=== PATIENT | female | born 1955 | race Caucasian/White ===

== ENCOUNTER → 2017-08-02 | Day surgery (SDC) | payer SELFPAY ==
[~2017-08-02] MED LIST: ASPIRIN325 MG PO; FENTANYL CITRATE/PF 100MCG/2 ML INJ ONE; MIDAZOLAM HCL 2 MG/2 ML VIAL ONE; OR PHACO EYE KIT ONE; PREOP PHACO EYE KIT ONE; QVAR INH; SEREVENT DISKU50 MCG INH
== END | disposition home or self-care (01) ==
LOC: OR 12:28
PROVIDERS: ATTEND Ophthalmology
DX: H25.12 Age-related nuclear cataract, left eye (principal); J44.9 Chronic obstructive pulmonary disease, unspecified; I10 Essential (primary) hypertension; K58.9 Irritable bowel syndrome, unspecified; F17.210 Nicotine dependence, cigarettes, uncomplicated; Z79.82 Long term (current) use of aspirin
CPT/HCPCS: 66984; J2250; V2632

== ENCOUNTER → 2017-08-16 | Day surgery (SDC) | payer SELFPAY | END | disposition home or self-care (01) | LOC: OR 10:42 | PROVIDERS: ATTEND Ophthalmology | DX: H25.11 Age-related nuclear cataract, right eye (principal); J44.9 Chronic obstructive pulmonary disease, unspecified; I10 Essential (primary) hypertension; I25.10 Atherosclerotic heart disease of native coronary artery without angina pectoris; K58.9 Irritable bowel syndrome, unspecified; F17.210 Nicotine dependence, cigarettes, uncomplicated | CPT/HCPCS: 66984; J2250; V2632 ==

== ENCOUNTER → 2019-05-30 | Day surgery (SDC) | payer MEDICARE ==
--- NOTE | 2019-05-28 13:29 | Diagnostic Imaging Report ---
EXAMINATION: CHEST 2 VIEWS INDICATION: Pre-operative COMPARISON: None FINDINGS: LINES/TUBES:None LUNGS:The lungs are well-inflated. No focal consolidation or pulmonary edema. Subcentimeter right upper lung calcified granuloma. PLEURA:No pleural effusion or pneumothorax. MEDIASTINUM:The cardiomediastinal silhouette appears normal in size and shape. Atherosclerotic calcifications of the thoracic aorta. BONES/SOFT TISSUES:No acute osseous injury. ABDOMEN:No free air under the diaphragm. IMPRESSION: No focal pneumonia or pulmonary edema. Signed by: Claire Valdez MD on 05/28/2019 1:26 PM
[~2019-05-30] MED LIST changes: +ACETAMINOPHEN 1000 MG/100 ML IV ONE; +ALBUTEROL0.63 MG/3 NEB; +BACITRACIN 50,000 UNIT VIAL ONE; +BUPIVACAINE HCL 0.5% INJ 30 ML VIAL INJ ONE; +CEFAZOLIN SOD 1 GM/NS 50ML 100 ML IV ONE; +COMBIVENT RESPIM4 GM IH; +DEXAMETHASONE SOD PHOS INJ 4 MG/ML VIAL ONE; +GLYCOPYRROLATE INJ 0.2 MG/ML VIAL ONE; +HYDROCODONE/APAP 10MG-325MG TAB ONE; +HYDROMORPHONE 1MG/1ML INJ ONE; +IBUPROFEN600 MG PO; +LIDOCAINE HCL 2% LOCAL INJ 5 ML SDV VIAL INJ ONE; +LISINOPRIL10 MG PO; +LOVASTATIN40 MG PO; +MORPHINE SULFATE INJ 4 MG/ML INJ 1ML ONE; +NEOSTIGMINE 1 MG/ML 10ML VIAL ONE; +NORCO 10-325 T1 EACH PO; +ONDANSETRON HCL INJ 2MG/ML 2ML 2 MG/ML VIAL ONE; -OR PHACO EYE KIT ONE; -PREOP PHACO EYE KIT ONE; +PROPOFOL IV EMULSION 10 MG/ML 20 ML VIAL ONE; +ROCURONIUM BROMIDE 10 MG/ML 5ML VIAL ONE; +SEVOFLURANE INHAL SOLN 250 ML PEN BTL ONE; +SYMBICORT 16010.2 GM INH
--- OUTSIDE RECORDS SUMMARY | 2019-05-30 08:10 | XMS REPORT ---
Author Author [facility] Organization [facility] Address Unknown Phone Unavailable Care Team Providers Care Emergency Room Clinician Name Role Phone DELORES ALVAREZ Unavailable Unavailable Payers Payer Name Policy Type Policy Number Effective Date Expiration Date Problems This patient has no known problems. Allergies, Adverse Reactions, Alerts Allergy Name Allergy Type Status Severity Reaction(s) Onset Date Inactive Date Treating Clinician Comments No Known Allergies DA Active U 2017-10-01 00:00:00 Medications This patient has no known medications. Results Test Description Test Time Test Comments Text Results Atomic Results Result Comments CHEST 2 VIEWS 2019-05-28 13:25:00 [place] [address] Patient Name: RASHAD GRIFFIN MR #: [id number] : 1955 Age/Sex: 64/F Req #: [id number] Adm Physician: Ordered by: DELORES ALVAREZ MD Report #: [id number] Location: OR Room/Bed: Procedure: [id number] DX/CHEST 2 VIEWS Exam Date: 05/28/19 Exam Time: 1300 REPORT STATUS: Signed EXAMINATION: CHEST 2 VIEWS INDICATION: Pre-operative COMPARISON: None FINDINGS: LINES/TUBES:None LUNGS:The lungs are well-inflated. No focal consolidation or pulmonary edema. Subcentimeter right upper lung calcified granuloma. PLEURA:No pleural effusion or pneumothorax. MEDIASTINUM:The cardiomediastinal silhouette appears normal in size and shape. Atherosclerotic calcifications of the thoracic aorta. BONES/SOFT TISSUES:No acute osseous injury. ABDOMEN:No free air under the diaphragm. IMPRESSION: No focal pneumonia or pulmonary edema. Signed by: Guillermo Palafox MD on 05/28/2019 1:26 PM Dictated By: GUILLERMO PALAFOX MD 1326 Transcribed By: RACQUEL on 05/28/19 1326 COPY TO: DELORES ALVAREZ MD - CT UP EXTREM W/O CONT LT 2019-05-15 21:54:00 Name: RASHAD GRIFFIN [facility] : 1955 Age/S: 64 / F [address] [facility] Unit #: [id number] Loc: [place] [address] Phys: Agustin Ponce MD Acct: [id number] Dis Date: Status: REG CLI PHONE #: [phone] Exam Date: 05/15/2019 1505 FAX #: [phone] Reason: OLECRANON FX EXAMS: CPT CODE: [id number] CT UP EXTREM W/[place] [address] EXAM: CT of the left elbow; INFORMATION: Fracture of the left olecranon, demonstrated on plain films series from April 28, 2019. TECHNIQUE AND FINDINGS: CT dose reduction protocol; 2.5 mm axial scans through the left elbow; sagittal and coronal reconstructions. In addition, 3-D reconstructions were obtained on an independent workstation. Corresponding with recent plain film findings there is a slightly displaced fracture of the olecranon. The proximal radius and the distal left humerus are intact. No radiopaque foreign bodies. IMPRESSION: Slightly displaced fracture of the left olecranon. Location code: [facility] at 2154 Reported and signed by: Zachary Matamoros M.D. CC: Agustin Ponce MD; Chin Vora MD Technologist:Mari Montoya RT(R); JAMES Serna CTDI: DLP: Trnscb Date/Time: 05/15/2019 (2153) JocelynGRW Orig Print D/T: S: 05/15/2019 (2156) PAGE 1 Signed Report - CT PELVIS W/O CONTRAST 2019-04-28 15:22:00 Name: RASHAD GRIFFIN [facility] : 1955 Age/S: 63 / F [address] [facility] Unit #: [id number] Loc: [facility] [place] [address] Phys: Marni Crump MD Acct: [id number] Dis Date: Status: REG ER PHONE #: [phone] Exam Date: 04/28/2019 1505 FAX #: [phone] Reason: fall, coccyx pain EXAMS: CPT CODE: [id number] CT PELVIS W/O CONTRAST 62319 EXAM: CT of the pelvis, including sacrum and coccyx; INFORMATION: Status post fall; coccyx pain; TECHNIQUE AND FINDINGS: CT dose reduction protocol; 5 mm scans through the pelvis; sagittal and coronal reconstructions. Sacrum and coccyx as well as the L4 and L5 vertebral bodies and posterior elements are intact; no evidence of fracture. The pelvis is also intact and without evidence of traumatic changes. Both hip joints are intact no fracture or dislocation. Degenerative changes of the lower lumbar spine. Moderate broad-based posterior and posterior lateral disc herniations at L4-S1 resulting in bilateral neural foraminal stenosis. There is a small, saccular aneurysm of the infrarenal aorta, at the level of L4. It has a maximum diameter of 2.5 cm. There are extensive calcifications of the abdominal aorta and iliofemoral arteries. Soft tissue windows show numerous sigmoid diverticula; no evidence of diverticulitis or other acute bowel abnormalities. No pelvic mass lesions IMPRESSION: 1. No evidence of sacral coccygeal fracture or other traumatic changes of the lower lumbar spine, the pelvis of the hip joints. 2. Advanced degenerative disc disease L4/5 and moderate posterior and posterior lateral disc herniations L4-S1. 3. 2.5 cm 5 few follow-up is recommended. 4. Sigmoid diverticulosis without evidence of diverticulitis. Location code: [facility] at 1522 Reported and signed by: Zachary Matamoros M.D. CC: Marni Crump MD Technologist:Olinda Pires RT(R),CT; CTDI: DLP: Trnscb Date/Time: 04/28/2019 (1522) [email or web address] Orig Print D/T: S: 04/28/2019 (1525) PAGE 1 Signed Report - XR FOREARM 2 VIEWS LT 2019-04-28 13:53:00 FAX: Marni Snow [phone] [place]: St: REG Name: RASHAD GRIFFIN [facility] : 1955 Age/S: 63/F [address] [facility] Unit #: [id number] Loc: [place] [address] Phys: Marni Crump MD Acct: [id number] Dis Date: Status: REG ER PHONE #: [phone] Exam Date: 04/28/2019 1340 FAX #: [phone] Reason: fall, arm pain EXAMS: CPT CODE: [id number] XR [address] [address] [place] [address] EXAM: Left elbow, 3 views and left forearm, 2 views; INFORMATION: Elbow pain after fall; FINDINGS: There is a roughly displaced fracture of the olecranon. This is associated with a joint effusion, characterized by positive anterior and posterior fat pad signs. The left radius and the distal left humerus are intact. No radiopaque foreign bodies. IMPRESSION: 1. Displaced fracture of the left olecranon. 2. Associated joint effusion/hemarthrosis. Location code: [facility] at 3168 Reported and signed by: Zachary Matamoros M.D. CC: Marni Crump MD Technologist: Disha Landeros RT(R); NAYANA SEPULVEDA RT(R) Trnscrd Date/Time/By: 04/28/2019 (3727) : By: JocelynGRW Orig Print D/T: S: 04/28/2019 (0238) PAGE 1 Signed Report - XR ELBOW 3 + V LT 2019-04-28 13:53:00 FAX: Marni Snow [phone] [place]: St: REG Name: RASHAD GRIFFIN [facility] : 1955 Age/S: 63/F [address] [facility] Unit #: [id number] Loc: [place] [address] Phys: Marni Crump MD Acct: [id number] Dis Date: Status: REG ER PHONE #: [phone] Exam Date: 04/28/2019 1340 FAX #: [phone] Reason: swelling EXAMS: CPT CODE: [id number] XR ELBOW 3 + [place] [address] EXAM: Left elbow, 3 views and left forearm, 2 views; INFORMATION: Elbow pain after fall; FINDINGS: There is a roughly displaced fracture of the olecranon. This is associated with a joint effusion, characterized by positive anterior and posterior fat pad signs. The left radius and the distal left humerus are intact. No radiopaque foreign bodies. IMPRESSION: 1. Displaced fracture of the left olecranon. 2. Associated joint effusion/hemarthrosis. Location code: [facility] at 1353 Reported and signed by: Zachary Matamoros M.D. CC: Marni Crump MD Technologist: Disha Landeros RT(R); NAYANA SEPULVEDA RT(R) Trnscrd Date/Time/By: 04/28/2019 (7082) : By: Travis Orig Print D/T: S: 04/28/2019 (9689) PAGE 1 Signed Report - CT C-SPINE W/O CONTRAST 2019-04-28 13:28:00 Name: RASHAD GRIFFIN [facility] : 1955 Age/S: 63 / F [address] [facility] Unit #: [id number] Loc: [place] [address] Phys: Marni Crump MD Acct: [id number] Dis Date: Status: REG ER PHONE #: [phone] Exam Date: 04/28/2019 1310 FAX #: [phone] Reason: fall EXAMS: CPT CODE: [id number] CT C-SPINE W/O CONTRAST 98426 EXAM: CT of the cervical spine without contrast; INFORMATION: Neck pain after fall; TECHNIQUE AND FINDINGS: CT dose reduction protocol; 2.5 mm axial scans. There is good alignment of the cervical spine. Vertebral bodies, the dens and posterior elements are intact; no evidence of fracture or dislocation. The significant narrowing of the disc space C5/6, associated with subchondral sclerosis of endplates, small posterior and more prominent anterior and anterior lateral osteophyte formation. There is partial fusion of C2 and 3. The remainder of the cervical discs is unremarkable. Degenerative changes are seen of facet joints C3 C5, right greater than left. Paravertebral soft tissues are unremarkable. IMPRESSION: 1. No evidence of acute osseous trauma. 2. Advanced degenerative disc disease C5/6, associated with moderate spondylosis. 3. Facet joint arthropathy. Location code: [facility] at 1328 Reported and signed by: Zachary Matamoros M.D. CC: Marni Crump MD Technologist:Kym Arceo RT(R)(CT) CTDI: DLP: Trnscb Date/Time: 04/28/2019 (5758) Travis Orig Print D/T: S: 04/28/2019 (2079) PAGE 1 Signed Report - CT HEAD/BRAIN W/O CONT 2019-04-28 13:24:00 Name: RASHAD GRIFFIN [facility] : 1955 Age/S: 63 / F [address] [facility] Unit #: [id number] Loc: [place] [address] Phys: Marni Crump MD Acct: [id number] Dis Date: Status: REG ER PHONE #: [phone] Exam Date: 04/28/2019 1310 FAX #: [phone] Reason: fall EXAMS: CPT CODE: [id number] CT HEAD/BRAIN W/O CONT 76378 EXAM: CT of the head without contrast; INFORMATION: Headache after fall; TECHNIQUE AND FINDINGS: CT dose reduction protocol; 2.5 mm axial scans. There is no evidence of intra or extra-axial hemorrhage, mass lesions or midline shift. Unremarkable [place]/white matter differentiation. Ventricles are symmetric and of normal diameter; sulci and basilar cisterns are intact. There is mucosal swelling in the right sphenoid sinus. The remainder of the sinuses and mastoid air cells are well aerated. IMPRESSION: 1. No evidence of intracranial hemorrhage, acute territorial infarction or other intracranial pathology. 2. Right sphenoid sinusitis. Location code: [facility] at 1324 Reported and signed by: Zachary Matamoros M.D. CC: Marni Crump MD Technologist:Kym Arceo RT(R)(CT) CTDI: DLP: Trnscb Date/Time: 04/28/2019 (1324) Travis Orig Print D/T: S: 04/28/2019 (3764) PAGE 1 Signed Report - XR HAND 2 V LT 2019-04-28 13:20:00 FAX: Marni Snow [phone] [place]: B St: REG Name: RASHAD GRIFFIN [facility] : 1955 Age/S: 63/F [address] [facility] Unit #: [id number] Loc: [place] [address] Phys: Marni Crump MD Acct: [id number] Dis Date: Status: REG ER PHONE #: [phone] Exam Date: 04/28/2019 1300 FAX #: [phone] Reason: fall, hand pain EXAMS: CPT CODE: [id number] XR HAND 2 [place] [address] EXAM: Left wrist, 2 views and left, 2 views; INFORMATION: Pain after fall; FINDINGS: There is diffuse osteoporosis; otherwise, imaged bones are intact; no evidence of fracture or dislocation. Mild changes of the first and second carpal metacarpal joints and of the first metacarpophalangeal joint. No soft tissue abnormality; no radiopaque foreign bodies. IMPRESSION: 1. No evidence of acute osseous trauma. 2. No radiopaque foreign bodies. 3. Osteoporosis. 4. 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 Location code: [facility] at 1320 Reported and signed by: Zachary Matamoros M.D. CC: Marni Crump MD Technologist: Disha Landeros RT(R); NAYANA SEPULVEDA RT(R) Trnscrd Date/Time/By: 04/02 (9946) : By: Travis Orig Print D/T: S: 04/28/2019 (9058) PAGE 1 Signed Report - XR WRIST 2 VIEWS LT 2019-04-28 13:20:00 FAX: Marni Snow [phone] [place]: St: REG Name: RASHAD GRIFFIN [facility] : 1955 Age/S: 63/F [address] [facility] Unit #: [id number] Loc: [place] [address] Phys: Marni Crump MD Acct: [id number] Dis Date: Status: REG ER PHONE #: [phone] Exam Date: 04/28/2019 1300 FAX #: [phone] Reason: fall, swelling to wrist EXAMS: CPT CODE: [id number] XR WRIST [address] [place] [address] EXAM: Left wrist, 2 views and left, 2 views; INFORMATION: Pain after fall; FINDINGS: There is diffuse osteoporosis; otherwise, imaged bones are intact; no evidence of fracture or dislocation. Mild changes of the first and second carpal metacarpal joints and of the first metacarpophalangeal joint. No soft tissue abnormality; no radiopaque foreign bodies. IMPRESSION: 1. No evidence of acute osseous trauma. 2. No radiopaque foreign bodies. 3. Osteoporosis. 4. 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 Location code: [facility] at 1320 Reported and signed by: Zachary Matamoros M.D. CC: Marni Crump MD Technologist: Disha Landeros RT(R); NAYANA SEPULVEDA RT(R) Trnscrd Date/Time/By: 04/02 (0026) : By: Travis Orig Print D/T: S: 04/28/2019 (9446) PAGE 1 Signed Report - XR HUMERUS 2 + V LT 2019-04-28 13:18:00 FAX: Marni Snow [phone] [place]: St: REG Name: RASHAD GRIFFIN [facility] : 1955 Age/S: 63/F [address] [facility] Unit #: [id number] Loc: [place] [address] Phys: Marni Crump MD Acct: [id number] Dis Date: Status: REG ER PHONE #: [phone] Exam Date: 04/28/2019 1300 FAX #: [phone] Reason: fall, pain in arm EXAMS: CPT CODE: [id number] XR HUMERUS 2 + [place] [address] EXAM: Left shoulder, 3 views and left humerus, 3 views; INFORMATION: Trauma; pain after fall; FINDINGS: Normal shape and structure of the imaged bones; no evidence of fracture or dislocation; no soft tissue abnormalities. IMPRESSION: No evidence of acute osseous trauma or other pathological changes. No radiopaque foreign body. Location code: [facility] at 1318 Reported and signed by: Zachary Matamoros M.D. CC: Marni Crump MD Technologist: Disha Landeros RT(R); NAYANA SEPULVEDA RT(R) Trnmird Date/Time/By: 04/28/2019 (1318) : By: JocelynGRW Orig Print D/T: S: 04/28/2019 (9598) PAGE 1 Signed Report - XR SHOULDER 2 + V LT 2019-04-28 13:18:00 FAX: Marni Snow [phone] [place]: B St: REG Name: RASHAD GRIFFIN [facility] : 1955 Age/S: 63/F [address] Unit #: [id number] Loc: [place] [address] Phys: Marni Crump MD Acct: [id number] Dis Date: Status: REG ER PHONE #: [phone] Exam Date: 04/28/2019 1300 FAX #: [phone] Reason: fall, ttp shoulder EXAMS: CPT CODE: [id number] XR SHOULDER 2 + [place] [address] EXAM: Left shoulder, 3 views and left humerus, 3 views; INFORMATION: Trauma; pain after fall; FINDINGS: Normal shape and structure of the imaged bones; no evidence of fracture or dislocation; no soft tissue abnormalities. IMPRESSION: No evidence of acute osseous trauma or other pathological changes. No radiopaque foreign body. Location code: [facility] at 1318 Reported and signed by: Zachary Matamoros M.D. CC: Marni Crump MD Technologist: Disha Landeros RT(R); NAYANA SEPULVEDA RT(R) Trnmird Date/Time/By: 04/28/2019 (0058) : By: [email or web address] Orig Print D/T: S: 04/28/2019 (5024) PAGE 1 Signed Report - XR RIBS UNI W/CXR 3+V LT 2019-04-28 13:17:00 FAX: Marni Snow [phone] [place]: B St: REG Name: RASHAD GRIFFIN [facility] : 1955 Age/S: 63/F [address] Unit #: [id number] Loc: [place], [place] [address] Phys: Marni Crump MD Acct: [id number] Dis Date: Status: REG ER PHONE #: [phone] Exam Date: 04/28/2019 1300 FAX #: [phone] Reason: fall, ttp left posterior ribs EXAMS: CPT CODE: [id number] XR RIBS UNI W/CXR 3+[place] [address] EXAM: Left- sided rib series, 5 views; INFORMATION: Left posterior chest wall pain fall; IMPRESSION: 1. Ribs are intact; no evidence of fracture or other pathological changes. 2. No evidence of pulmonary contusion or pneumothorax. 3. Incidental note is made of a 3 mm calcified granuloma in the right upper lobe and of calcifications of the aortic arch. Location code: [facility] at 1317 Reported and signed by: Zachary Matamoros M.D. CC: Marni Crump MD Technologist: Disha Landeros RT(R); NAYANA SEPULVEDA RT(R) Trnscrd Date/Time/By: 04/28/2019 (9046) : By: JocelynGRW Orig Print D/T: S: 04/28/2019 (9468) PAGE 1 Signed Report BASIC METABOLIC PANEL 2019-04-28 12:53:00 SODIUM (test code=NA) 144 mmol/L 136-145 POTASSIUM (test code=K) 4.2 mmol/L 3.5-5.1 CHLORIDE (test code=CL) 110.0 mmol/L 98-107 CARBON DIOXIDE (test code=CO2) 31.0 mmol/L 21-32 ANION GAP (test code=GAP) 7.2 10-20 GLUCOSE (test code=GLU) 100 mg/dL 74-106 BLOOD UREA NITROGEN (test code=BUN) 13 mg/dL 7-18 GLOMERULAR FILTRATION RATE (test code=GFR) > 60 mL/min >=60 Estimated GFR by using Modified MDRD formula.Chronic kidney disease is defined as either kidney damageor GFR <60 mL/min/1.73 m2 for >3 months. CREATININE (test code=CREAT) 0.70 mg/dL 0.55-1.02 Note change in reference range due to change in reagent. BUN/CREATININE RATIO (test code=BUN/CREA) 18.6 10-20 CALCIUM (test code=CA) 9.4 mg/dL 8.5-10.1 BASIC METABOLIC [id number] 12:51:00* Test Item Value Reference Range Comments SODIUM (test code=NA) 144 mmol/L 136-145 POTASSIUM (test code=K) 4.2 mmol/L 3.5-5.1 CHLORIDE (test code=CL) 110.0 mmol/L 98-107 CARBON DIOXIDE (test code=CO2) mmol/L 21-32 ANION GAP (test code=GAP) 10-20 GLUCOSE (test code=GLU) mg/dL 74-106 BLOOD UREA NITROGEN (test code=BUN) mg/dL 7-18 GLOMERULAR FILTRATION RATE (test code=GFR) mL/min >=60 CREATININE (test code=CREAT) mg/dL 0.55-1.02 BUN/CREATININE RATIO (test code=BUN/CREA) 10-20 CALCIUM (test code=CA) mg/dL 8.5-10.1 PROTHROMBIN [id number] 12:51:00* Test Item Value Reference Range Comments PROTHROMBIN TIME PATIENT (test code=PTP) 10.6 seconds 9.0-14.0 INTERNATIONAL NORMAL RATIO (test code=INR) 0.9 0.8-1.2 The therapeutic range for oral anticoagulant therapy formost indications is an international normalized ratio (INR)of between 2.0 and 3.0. The recommended therapeutic INRrange for various clinical situations is listed below: Clinical Situation INR range Pulmonary e mbolism treatment (2.0-3.0)Venous thrombosis treatmentVenous thrombosis prophylaxis (high risk surgery)Prevention of systemic embolism from: Acute myocardial infarction Valvular heart disease Atrial fibrillation Mechanical prosthetic heart valves (2.5-3.5) IS PATIENT ON ANTICOAGULANTS? NTHROMBOPLASTIN TIME [id number] 12:51:00* Test Item Value Reference Range Comments THROMBOPLASTIN TIME PARTIAL (test code=PTT) 33.1 seconds 25.0-36.5 IS PATIENT ON ANTICOAGULANTS? NCBC W/AUTO [id number] 12:45:00* Test Item Value Reference Range Comments WHITE BLOOD CELL (test code=WBC) 12.0 K/mm3 4.5-12.5 RED BLOOD CELL (test code=RBC) 4.23 mill/mm3 3.7-5.2 HEMOGLOBIN (test code=HGB) 13.2 gram/dL 11.5-15.5 HEMATOCRIT (test code=HCT) 41.1 % 36.0-46.0 MEAN CELL VOLUME (test code=MCV) 97.2 fL 80-98 MEAN CELL HGB (test code=MCH) 31.2 picogram 27.0-33.0 MEAN CELL HGB CONCETRATION (test code=MCHC) 32.1 gram/dL 33.0-36.0 RED CELL DISTRIBUTION WIDTH (test code=RDW) 13.5 % 11.6-16.2 RED CELL DISTRIBUTION WIDTH SD (test code=RDW-SD) 48.4 fL 37.0-51.0 PLATELET COUNT (test code=PLT) 277 K/mm3 150-450 MEAN PLATELET VOLUME (test code=MPV) 9.2 fL 6.7-11.0 NEUTROPHIL % (test code=NT%) 62.9 % 39.0-69.0 IMMATURE GRANULOCYTE % (test code=IG%) 0.4 % 0.0-5.0 LYMPHOCYTE % (test code=LY%) 29.1 % 25.0-55.0 MONOCYTE % (test code=MO%) 6.7 % 0.0-10.0 EOSINOPHIL % (test code=EO%) 0.7 % 0.0-5.0 BASOPHIL % (test code=BA%) 0.2 % 0.0-1.0 NUCLEATED RBC % (test code=NRBC%) 0.0 % 0-0 NEUTROPHIL # (test code=NT#) 7.53 K/mm3 1.8-7.7 IMMATURE GRANULOCYTE # (test code=IG#) 0.05 x10 3/uL 0-0.03 LYMPHOCYTE # (test code=LY#) 3.50 K/mm3 1.0-5.0 MONOCYTE # (test code=MO#) 0.81 K/mm3 0-0.8 EOSINOPHIL # (test code=EO#) 0.09 K/mm3 0.0-0.5 BASOPHIL # (test code=BA#) 0.03 K/mm3 0.0-0.2 NUCLEATED RBC # (test code=NRBC#) 0.00 K/mm3 0.0-0.1 MANUAL DIFF REQUIRED (test code=MDIFF) NO CBC W/AUTO [id number] 12:39:00* Test Item Value Reference Range Comments WHITE BLOOD CELL (test code=WBC) K/mm3 4.5-12.5 RED BLOOD CELL (test code=RBC) mill/mm3 3.7-5.2 HEMOGLOBIN (test code=HGB) 13.2 gram/dL 11.5-15.5 HEMATOCRIT (test code=HCT) 41.1 % 36.0-46.0 MEAN CELL VOLUME (test code=MCV) fL 80-98 MEAN CELL HGB (test code=MCH) picogram 27.0-33.0 MEAN CELL HGB CONCETRATION (test code=MCHC) gram/dL 33.0-36.0 RED CELL DISTRIBUTION WIDTH (test code=RDW) % 11.6-16.2 RED CELL DISTRIBUTION WIDTH SD (test code=RDW-SD) fL 37.0-51.0 PLATELET COUNT (test code=PLT) K/mm3 150-450 MEAN PLATELET VOLUME (test code=MPV) fL 6.7-11.0 NEUTROPHIL % (test code=NT%) % 39.0-69.0 IMMATURE GRANULOCYTE % (test code=IG%) % 0.0-5.0 LYMPHOCYTE % (test code=LY%) % 25.0-55.0 MONOCYTE % (test code=MO%) % 0.0-10.0 EOSINOPHIL % (test code=EO%) % 0.0-5.0 BASOPHIL % (test code=BA%) % 0.0-1.0 NEUTROPHIL # (test code=NT#) K/mm3 1.8-7.7 LYMPHOCYTE # (test code=LY#) K/mm3 1.0-5.0 MONOCYTE # (test code=MO#) K/mm3 0-0.8 EOSINOPHIL # (test code=EO#) K/mm3 0.0-0.5 BASOPHIL # (test code=BA#) K/mm3 0.0-0.2 AG STREPTOCOCCUS [id number] 03:09:00* Test Item Value Reference Range Comments AG STREPTOCOCCUS PNEUMO (test code=STREPPNAG) NEGATIVE NEGATIVE LEGIONELLA ANTIGEN,URINE,[id number] 03:09:00* Test Item Value Reference Range Comments LEGIONELLA ANTIGEN,URINE,SHANE (test code=LEGAGUR) NEGATIVE NEGATIVE [id number] 00:15:00* Test Item Value Reference Range Comments TROPONIN-I (test code=TROPI) <0.015 ng/mL 0-0.045 [id number] 20:51:00* Test Item Value Reference Range Comments TROPONIN-I (test code=TROPI) <0.015 ng/mL 0-0.045 B-TYPE NATRIURETIC [id number] 12:44:00* Test Item Value Reference Range Comments B-TYPE NATRIURETIC PEPTIDE (test code=BNP) 35.56 pgram/mL 0-100 - XR CHEST 1 [id number] 12:40:00 FAX: Fernie Mishra DO [place]: B St: REG Name: Rc LARARASHAD LOPEZ CONY [facility] : [birth year] Age/S: 63/F [address] [facility] Unit #: [id number] Loc: [place] [address] Phys: Fernie Mishra DO Acct: [id number] Dis Date: Status: REG ER PHONE #: [phone] Exam Date: 12/14/2018 1157 FAX #: [phone] Reason: CODE SEPSIS EXAMS: CPT CODE: [id number] XR CHEST 1 V 56092 REASON FOR EXAM: CODE SEPSIS Exam Order Date: 12/14/2018 11:08 AM Ordering M.DPatrick: Fernie Mishra DO PROCEDURE: - XR CHEST 1 V COMPAR LATASHA: Frontal chest radiograph April 18, 2019 FINDINGS: The lungs are clear other than a calcified granuloma in the right lung ap ex. There is no pleural effusion or pneumothorax. Pulmonary vascularity is within normal limits. Cardiomediastinal silhouette is normal in s ize for technique. The mediastinal contours are within normal limits. Degenerative changes are present in the acromioclavicular joints. No acute bony findings however. The visualized upper abdomen is within normal limits. IMPRESSION: No acute cardiopulmona ry process. Prior granulomatous disease. at 1240 Reported and signed by: Alexi Stevens MD CC: Fernie Mishra DO Technologist: Enrique ALEX(Jay) Trnscrd Date/Time/By: 12/14/2018 (8477) : By: [email or web address] Orig Print D/T: S: 12/14/2018 (4944) PAGE 1 Signed Report URINALYSIS COMPLETE 2018-12-14 12:25:00* Test Item Value Reference Range Comments UA COLOR (test code=COLU) Light-Yellow YELLOW UA APPEARANCE (test code=APPU) CLEAR CLEAR UA GLUCOSE DIPSTICK (test code=DGLUU) NEGATIVE mg/dL NEGATIVE UA BILIRUBIN DIPSTICK (test code=BILU) NEGATIVE mg/dL NEGATIVE UA KETONE DIPSTICK (test code=KETU) NEGATIVE mg/dL NEGATIVE UA SPECIFIC GRAVITY (test code=SGU) 1.006 1.001-1.035 UA BLOOD DIPSTICK (test code=NEGRO) Negative mg/dL NEGATIVE UA PH DIPSTICK (test code=ROGER) 7.0 5.0-8.0 UA PROTEIN DIPSTICK (test code=PROU) NEGATIVE mg/dL NEGATIVE UA UROBILINIOGEN DIPSTICK (test code=URO) Normal mg/dL NEGATIVE UA NITRITE DIPSTICK (test code=KERRY) NEGATIVE NEGATIVE UA LEUKOCYTE ESTERASE W REFLEX (test code=LEUUR) 75 Mark/uL (1+) Mark/uL NEGATIVE UA WBC (test code=WBCU) 11-20 per HPF 0-5 UA RBC (test code=RBCU) 0-2 #/HPF 0-5 UA EPITHELIAL CELLS (test code=EPIU) FEW per HPF FEW UA BACTERIA (test code=BACU) FEW #/HPF NONE UA MUCUS (test code=MUCU) FEW #/LPF FEW Urine Source? Clean CatchCBC W/AUTO [id number] 12:15:00* Test Item Value Reference Range Comments WHITE BLOOD CELL (test code=WBC) 7.8 K/mm3 4.5-12.5 RED BLOOD CELL (test code=RBC) 4.36 mill/mm3 3.7-5.2 HEMOGLOBIN (test code=HGB) 14.0 gram/dL 11.5-15.5 HEMATOCRIT (test code=HCT) 42.1 % 36.0-46.0 MEAN CELL VOLUME (test code=MCV) 96.6 fL 80-98 MEAN CELL HGB (test code=MCH) 32.1 picogram 27.0-33.0 MEAN CELL HGB CONCETRATION (test code=MCHC) 33.3 gram/dL 33.0-36.0 RED CELL DISTRIBUTION WIDTH (test code=RDW) 13.0 % 11.6-16.2 RED CELL DISTRIBUTION WIDTH SD (test code=RDW-SD) 46.5 fL 37.0-51.0 PLATELET COUNT (test code=PLT) 292 K/mm3 150-450 MEAN PLATELET VOLUME (test code=MPV) 9.2 fL 6.7-11.0 NEUTROPHIL % (test code=NT%) 48.1 % 39.0-69.0 IMMATURE GRANULOCYTE % (test code=IG%) 0.4 % 0.0-5.0 LYMPHOCYTE % (test code=LY%) 42.0 % 25.0-55.0 MONOCYTE % (test code=MO%) 7.2 % 0.0-10.0 EOSINOPHIL % (test code=EO%) 1.8 % 0.0-5.0 BASOPHIL % (test code=BA%) 0.5 % 0.0-1.0 NUCLEATED RBC % (test code=NRBC%) 0.0 % 0-0 NEUTROPHIL # (test code=NT#) 3.74 K/mm3 1.8-7.7 IMMATURE GRANULOCYTE # (test code=IG#) 0.03 x10 3/uL 0-0.03 LYMPHOCYTE # (test code=LY#) 3.26 K/mm3 1.0-5.0 MONOCYTE # (test code=MO#) 0.56 K/mm3 0-0.8 EOSINOPHIL # (test code=EO#) 0.14 K/mm3 0.0-0.5 BASOPHIL # (test code=BA#) 0.04 K/mm3 0.0-0.2 NUCLEATED RBC # (test code=NRBC#) 0.00 K/mm3 0.0-0.1 MANUAL DIFF REQUIRED (test code=MDIFF) NO BASIC METABOLIC [id number] 12:13:00* Test Item Value Reference Range Comments SODIUM (test code=NA) 140 mmol/L 136-145 POTASSIUM (test code=K) 4.7 mmol/L 3.5-5.1 CHLORIDE (test code=CL) 105.0 mmol/L 98-107 CARBON DIOXIDE (test code=CO2) 27.0 mmol/L 21-32 ANION GAP (test code=GAP) 12.7 10-20 GLUCOSE (test code=GLU) 93 mg/dL 74-106 BLOOD UREA NITROGEN (test code=BUN) 7 mg/dL 7-18 GLOMERULAR FILTRATION RATE (test code=GFR) > 60 mL/min >=60 Estimated GFR by using Modified MDRD formula.Chronic kidney disease is defined as either kidney damageor GFR <60 mL/min/1.73 m2 for >3 months. CREATININE (test code=CREAT) 0.70 mg/dL 0.55-1.02 Note change in reference range due to change in reagent. BUN/CREATININE RATIO (test code=BUN/CREA) 9.5 10-20 CALCIUM (test code=CA) 9.4 mg/dL 8.5-10.1 HEPATIC FUNCTION [id number] 12:13:00* Test Item Value Reference Range Comments TOTAL PROTEIN (test code=PROT) 7.6 gram/dL 6.4-8.2 ALBUMIN (test code=ALB) 4.0 g/dL 3.4-5.0 GLOBULIN (test code=GLOB) 3.6 gram/dL 2.7-4.2 ALBUMIN/GLOBULIN RATIO (test code=A/G) 1.1 0.75-1.50 BILIRUBIN TOTAL (test code=BILT) 0.50 mg/dL 0.0-1.0 BILIRUBIN DIRECT (test code=BILD) < 0.05 mg/dL 0.0-0.20 SGOT/AST (test code=AST) 21 IUnit/L 15-37 SGPT/ALT (test code=ALT) 15 IUnit/L 12-78 ALKALINE PHOSPHATASE TOTAL (test code=ALKP) 77 IUnit/L 45-117 Note change in reference range due to change in reagent. [id number] 12:13:00* Test Item Value Reference Range Comments TROPONIN-I (test code=TROPI) <0.015 ng/mL 0-0.045 LACTIC [id number] 12:12:00* Test Item Value Reference Range Comments LACTIC ACID (test code=LACT) 1.6 mmol/L 0.4-1.9 CBC W/AUTO [id number] 12:07:00* Test Item Value Reference Range Comments WHITE BLOOD CELL (test code=WBC) K/mm3 4.5-12.5 RED BLOOD CELL (test code=RBC) mill/mm3 3.7-5.2 HEMOGLOBIN (test code=HGB) 14.0 gram/dL 11.5-15.5 HEMATOCRIT (test code=HCT) 42.1 % 36.0-46.0 MEAN CELL VOLUME (test code=MCV) fL 80-98 MEAN CELL HGB (test code=MCH) picogram 27.0-33.0 MEAN CELL HGB CONCETRATION (test code=MCHC) gram/dL 33.0-36.0 RED CELL DISTRIBUTION WIDTH (test code=RDW) % 11.6-16.2 RED CELL DISTRIBUTION WIDTH SD (test code=RDW-SD) fL 37.0-51.0 PLATELET COUNT (test code=PLT) K/mm3 150-450 MEAN PLATELET VOLUME (test code=MPV) fL 6.7-11.0 NEUTROPHIL % (test code=NT%) % 39.0-69.0 IMMATURE GRANULOCYTE % (test code=IG%) % 0.0-5.0 LYMPHOCYTE % (test code=LY%) % 25.0-55.0 MONOCYTE % (test code=MO%) % 0.0-10.0 EOSINOPHIL % (test code=EO%) % 0.0-5.0 BASOPHIL % (test code=BA%) % 0.0-1.0 NEUTROPHIL # (test code=NT#) K/mm3 1.8-7.7 LYMPHOCYTE # (test code=LY#) K/mm3 1.0-5.0 MONOCYTE # (test code=MO#) K/mm3 0-0.8 EOSINOPHIL # (test code=EO#) K/mm3 0.0-0.5 BASOPHIL # (test code=BA#) K/mm3 0.0-0.2 BASIC METABOLIC [id number] 12:01:00* Test Item Value Reference Range Comments SODIUM (test code=NA) 140 mmol/L 136-145 POTASSIUM (test code=K) 4.7 mmol/L 3.5-5.1 CHLORIDE (test code=CL) 105.0 mmol/L 98-107 CARBON DIOXIDE (test code=CO2) mmol/L 21-32 ANION GAP (test code=GAP) 10-20 GLUCOSE (test code=GLU) mg/dL 74-106 BLOOD UREA NITROGEN (test code=BUN) mg/dL 7-18 GLOMERULAR FILTRATION RATE (test code=GFR) mL/min >=60 CREATININE (test code=CREAT) mg/dL 0.55-1.02 BUN/CREATININE RATIO (test code=BUN/CREA) 10-20 CALCIUM (test code=CA) mg/dL 8.5-10.1 HEPATIC FUNCTION [id number] 12:01:00* Test Item Value Reference Range Comments TOTAL PROTEIN (test code=PROT) gram/dL 6.4-8.2 ALBUMIN (test code=ALB) g/dL 3.4-5.0 GLOBULIN (test code=GLOB) gram/dL 2.7-4.2 ALBUMIN/GLOBULIN RATIO (test code=A/G) 0.75-1.50 BILIRUBIN TOTAL (test code=BILT) mg/dL 0.0-1.0 BILIRUBIN DIRECT (test code=BILD) mg/dL 0.0-0.20 SGOT/AST (test code=AST) IUnit/L 15-37 SGPT/ALT (test code=ALT) IUnit/L 12-78 ALKALINE PHOSPHATASE TOTAL (test code=ALKP) IUnit/L 45-117 [id number] 12:01:00* Test Item Value Reference Range Comments TROPONIN-I (test code=TROPI) ng/mL 0-0.045 POC LACTIC [id number] 11:27:00* Test Item Value Reference Range Comments POC LACTIC ACID (test code=POCLAC) 1.78 MMOL/L 0.4-2.2 - XR FOOT 3 + V [id number] 18:07:00 Name: RSAHAD GRIFFIN [facility] : 1955 Age/S:63 /F [address] [facility] Unit#:[id number] Loc: [place] [address] Phys: Nimesh Banegas Dis Date: PHONE #: [phone] Status: REG ER FAX #: [phone] Exam Date: 09/02/2018 Reason: 1ST METATARSAL PAIN S/P FALL EXAMS: CPT CODE: [id number] XR FOOT 3 + V LT [id number] CLINICAL HISTORY: 1ST METATARSAL PAIN S/P FALL TECHNIQUE: AP, oblique, and lateral views of the left foot COMPARISON: 09/04/15 FINDINGS: No acute fracture or dislocation. Bony trabecular pattern is unremarkable. No cortical destruction or periosteal reaction. Mild degenerative changes of the talonavicular, 1st metatarsophalangeal, and polyarticular interphalangeal joints. Regional soft tissues are unremarkable. IMPRESSION: No acute fracture or dislocation. Mild polyarticu lar degenerative arthrosis. at 1807 Reported and signed by: Hien Pierce.OPatrick CC: Nimesh Banegas Technologist: Nimco Grace Trnscrpt Data: 09/02/2018 (1806) [id number] Orig Print D/T: S: 09/02/2018 (1810) PAGE 1 Signed Report
[2019-05-30 14:55] VITALS: BP 141/69
--- NOTE | 2019-05-31 23:46 | Operative Report ---
DATE OF PROCEDURE: 05/30/2019 SURGEON: Elpidio Burgos MD PREOPERATIVE DIAGNOSIS: Subacute displaced, left olecranon fracture. POSTOPERATIVE DIAGNOSIS: Subacute displaced, left olecranon fracture. OPERATIONS AND PROCEDURES PERFORMED: 1. The patient underwent open reduction and internal fixation of the left subacute olecranon fracture. 2. Allograft bone grafting of the subacute left olecranon fracture. CAN STRIPER: LINDA Sheppard. ANESTHESIA: General endotracheal intubation anesthesia. IV FLUIDS: Per anesthesia record. ESTIMATED BLOOD LOSS: Minimal. COMPLICATIONS: None. BRIEF DESCRIPTION OF THE PATIENT'S OPERATIVE PROCEDURE: Ms. Kenney was taken to the operating room, placed in supine position on the operating table. Following induction of general anesthesia as well as endotracheal intubation, the patient was turned onto her right side. She was held in place with a well-padded pang bag positioner. An axillary roll was placed in the right chest wall. Examination of the left upper extremity demonstrated a bruise and ecchymosis about the left elbow joint. Fluoroscopic evaluation of the elbow joint demonstrated displaced intra-articular olecranon fracture. The patient's left upper extremity was prepped and draped in standard surgical fashion. The case was begun by creating a curvilinear incision around the olecranon process extending into the proximal forearm. This incision was carried through skin only. Blunt dissection used to deepen the incision to the level of the patient's fracture site. There was significant scarring and callus formation at the level of the fracture site, given the delay in getting to surgery. Careful dissection about the fracture site to allow for freeing of the soft tissues about the fracture site. A curette was then used to remove the callus formation and to debride the bone, removing scar tissue that would otherwise prevent healing. The wound was copiously irrigated. The fracture was then reduced and held in place with a fracture reduction clamp. A plate was contoured to the proximal ulna and the plate was then affixed to the ulna with combinations of cortical and locking screws. Care was taken to provide compression across the patient's fracture site during the application of the plate. This resulted in anatomic realignment of the patient's articular surface and reduction of the patient's fracture site. The wound was again copiously irrigated. The fracture site was bone grafted with allograft bone graft and Imperial putty. The soft tissues were then closed in a multilayer fashion. Sterile dressings were applied as well as a well-padded posterior splint. The patient was then awakened and taken to the postanesthesia care in stable condition. MD DALILA Pierre/KIMBERLY /[id number]
== END | disposition home or self-care (01) ==
LOC: OR 08:08
PROVIDERS: ATTEND Specialist
DX: S52.032A Displaced fracture of olecranon process with intraarticular extension of left ulna, initial encounter for closed fracture (principal); J44.9 Chronic obstructive pulmonary disease, unspecified; I10 Essential (primary) hypertension; I25.118 Atherosclerotic heart disease of native coronary artery with other forms of angina pectoris; K58.9 Irritable bowel syndrome, unspecified; M19.90 Unspecified osteoarthritis, unspecified site; F17.210 Nicotine dependence, cigarettes, uncomplicated; W19.XXXA Unspecified fall, initial encounter; Z01.818 Encounter for other preprocedural examination
CPT/HCPCS: 20999; 24685; 71046; C1713 ×12; J0131; J0690; J1100; J1170; J2001; J2250; J2270; J2405; J2704; J2710; J3010

== ENCOUNTER → 2019-08-28 | Outpatient (CLI) | payer MEDICARE, OTHER ==
[~2019-08-28] MED LIST changes: -ACETAMINOPHEN 1000 MG/100 ML IV ONE; -BACITRACIN 50,000 UNIT VIAL ONE; -BUPIVACAINE HCL 0.5% INJ 30 ML VIAL INJ ONE; -CEFAZOLIN SOD 1 GM/NS 50ML 100 ML IV ONE; -DEXAMETHASONE SOD PHOS INJ 4 MG/ML VIAL ONE; -FENTANYL CITRATE/PF 100MCG/2 ML INJ ONE; -GLYCOPYRROLATE INJ 0.2 MG/ML VIAL ONE; -HYDROCODONE/APAP 10MG-325MG TAB ONE; -HYDROMORPHONE 1MG/1ML INJ ONE; -LIDOCAINE HCL 2% LOCAL INJ 5 ML SDV VIAL INJ ONE; -MIDAZOLAM HCL 2 MG/2 ML VIAL ONE; -MORPHINE SULFATE INJ 4 MG/ML INJ 1ML ONE; -NEOSTIGMINE 1 MG/ML 10ML VIAL ONE; -ONDANSETRON HCL INJ 2MG/ML 2ML 2 MG/ML VIAL ONE; -PROPOFOL IV EMULSION 10 MG/ML 20 ML VIAL ONE; -ROCURONIUM BROMIDE 10 MG/ML 5ML VIAL ONE; -SEVOFLURANE INHAL SOLN 250 ML PEN BTL ONE
--- NOTE | 2019-08-28 13:23 | Diagnostic Imaging Report ---
MRI of the left shoulder without contrast. History: Shoulder pain. Rotator cuff tear. Fall. Decreased range of motion. Pain not responding to conservative management Comparison: None Technique: Coronal PD FS, sagital PD FS, and axial PD and PD FS. Findings: Rotator cuff: Rotator cuff tendinosis with mild articular sided fraying involving the anterior fibers of the supraspinatus tendon at the humeral insertion site best seen on sagittal series 4 image 10 through 12 additionally, there is infraspinatus and subscapularis tendinosis. The teres minor tendon is intact. Osseous acromion complex: Type II acromion with mild lateral downsloping. Moderate degenerative arthrosis at the acromioclavicular joint with undersurface spurring and narrowing of the supraspinatus tendon outlet. Moderate subacromial/subdeltoid bursitis best seen on coronal series 4 image 10. Glenohumeral joint: Mild degeneration and fraying of the labrum. The articular cartilage surfaces are intact. The humeral head is well-seated in the glenoid fossa. Biceps tendon: The biceps tendon is intact. Other findings: Negative for muscle denervation or osseous fracture. Impression: Rotator cuff tendinosis with mild articular sided fraying involving the anterior fibers of the supraspinatus tendon at the humeral insertion site. Moderate degenerative arthrosis at the acromioclavicular joint with undersurface spurring and narrowing of the supraspinatus tendon outlet. Moderate subacromial/subdeltoid bursitis Signed by: Dr. Nic Leyva M.D. on 08/28/2019 1:20 PM
== END ==
LOC: MRI 10:29
PROVIDERS: ATTEND Specialist
DX: M75.122 Complete rotator cuff tear or rupture of left shoulder, not specified as traumatic (principal)

== ENCOUNTER → 2019-10-23 | Day surgery (SDC) | payer MEDICARE, OTHER ==
[2019-10-19 12:55] LABS: BASOPHILS % 0.3 % (0.0-1.0); EOSINOPHILS # (AUTO) 0.1 (0.0-0.4); EOSINOPHILS % 0.8 % (0.0-6.0); HEMATOCRIT 42.5 % (34.2-44.1); HEMOGLOBIN 13.6 g/dL (12.0-16.0); LYMPHOCYTES # (AUTO) 3.1 (1.0-3.2); LYMPHOCYTES % 27.5 % (18.0-39.1); MEAN CORPUSCULAR HEMOGLOBIN 31.6 pg (28-32); MEAN CORPUSCULAR VOLUME 98.8 fL (81-99); MONOCYTES # (AUTO) 0.7 (0.2-0.8); MONOCYTES % 6.3 % (4.4-11.3); NEUTROPHILS # (AUTO) 7.2 (2.1-6.9); NEUTROPHILS % 64.6 % (38.7-80.0); PLATELET COUNT 285 x10e3/uL (140-360)
[~2019-10-23] MED LIST changes: +ASPIR 8181 MG PO; +FENTANYL CITRATE/PF 100MCG/2 ML INJ ONE; +GABAPENTIN300 MG PO; +GLUCAGON FOR INJ 1 MG VIAL ONE; +HYOSCYAMINE 0.125 MG TAB ONE; +LIDOCAINE HCL 2% LOCAL INJ 5 ML SDV VIAL INJ ONE; +MEPERIDINE HCL INJ 25 MG/ML VIAL ONE; +MIDAZOLAM HCL 2 MG/2 ML VIAL ONE; +PROPOFOL IV EMULSION 10 MG/ML 20 ML VIAL ONE; +[UNRECOGNIZED DRUG - OTHER] PO
[2019-10-23 13:50] VITALS: BP 125/56
--- NOTE | 2019-10-23 14:27 | Operative Report ---
DATE OF PROCEDURE: 10/23/2019 SURGEON: Hakeem Vora MD PROCEDURES: EGD with biopsies and colonoscopy with polypectomy. INDICATIONS FOR EGD: Upper abdominal pain, heartburn, bloating. INDICATIONS FOR COLONOSCOPY: Colorectal cancer screening. MEDICATIONS: The patient was done under MAC, please see anesthesiologist's note. PROCEDURE IN DETAIL: With the patient in the left lateral decubitus position, a flexible fiberoptic Olympus gastroscope was introduced into the esophagus under direct visualization without any difficulty. There was some patchy erythema noted in distal esophagus. GE junction was somewhat nodular and that was biopsied. The scope was then advanced with ease into the stomach traversing a small sliding hiatal hernia. Mucosa overlying the antrum and the body revealed some patchy erythema and low-grade edema, and biopsies were obtained and sent to stain for H. pylori. Pylorus was of normal contour and shape, was intubated with ease and the scope was advanced all the way to the second portion of the duodenum. Biopsies were obtained from the proximal second portion and duodenal bulb to rule out sprue. The scope was then withdrawn back into the stomach and retroflexed, mucosa overlying the fundus and the cardia appeared to be within normal limits. The scope was then straightened out, it was subsequently withdrawn, and the patient tolerated the procedure well. IMPRESSION: 1. Distal esophagitis. 2. Nodular GE junction, biopsied. 3. Small sliding hiatal hernia. 4. Gastritis, biopsied, biopsies sent to stain for Helicobacter pylori. 5. Rule out sprue. PLAN: Follow up histology. Initiate Protonix 40 mg one p.o. q.a.m. before meals. The patient was then turned around and after adequate lubrication of the anal canal, a flexible fiberoptic Olympus colonoscope was inserted into the rectum with ease and advanced all the way to the cecum. An approximately 1.2 cm sessile polypoid lesion was noted in the cecum that was removed per hot snare polypectomy and site was hemoclipped x3. A small approximately 5 mm polyp also in the cecum was removed per cold snare polypectomy. The scope was then withdrawn slowly, mucosa overlying the ascending colon appeared to be within normal limits. Two polyps approximately 1.5 cm each in size, sessile, proximal transverse colon, removed per cold snare polypectomy. An additional approximately 2.5 cm sessile polypoid lesion was partially resected per piecemeal polypectomy, hemoclipped x2 and was tattooed that was in the distal transverse colon. In the descending colon, an approximately 1.5 cm sessile polypoid lesion was removed per hot snare polypectomy and site was hemoclipped x2 and additional approximately 5 mm polyp was removed per hot snare polypectomy. Three polyps were hot snared from the sigmoid colon. Diverticular disease was noted to involve the sigmoid colon. One polyp was hot snared from the rectum. The scope was then retroflexed into the distal rectum and the area around the dentate line appeared to be within normal limits. The scope was then straightened out, it was subsequently withdrawn, and the patient tolerated the procedure well. IMPRESSION: 1. Cecal polyps x2, one approximately 1.5 cm in size, sessile, removed per hot snare polypectomy and site was hemoclipped x2, and additional polyp approximately 5 mm in size was removed per cold snare polypectomy. 2. Proximal transverse colon polyps x2, approximately 1.5 cm in size, removed per hot snare polypectomy. 3. Approximately 2.5 cm sessile polypoid lesion, distal transverse colon, partially resected per hot snare polypectomy, hemoclipped x2 and it was tattooed. 4. Descending colon polyps x2, one approximately 1.5 cm sessile, hot snared, hemoclipped x2. The additional polyp was approximately 6 mm in size that was hot snared. 5. Diverticulosis. 6. Sigmoid colon polyps x3, hot snared. 7. Rectal polyp x1, hot snared. PLAN: A total of 11 polyps were removed. Some of them were pretty large. The patient will need a followup colonoscopy in 3 to 4 months to evaluate colon and remove residual polypoid lesion in the previously described large transverse colon. Hakeem Vora MD [facility] [place]/MODL /[id number] cc: Ezequiel Vora MD
== END | disposition home or self-care (01) ==
LOC: OR 10:40
PROVIDERS: ATTEND Internal Medicine Gastroenterology
DX: Z12.11 Encounter for screening for malignant neoplasm of colon (principal); D12.5 Benign neoplasm of sigmoid colon; D12.0 Benign neoplasm of cecum; D12.3 Benign neoplasm of transverse colon; D12.4 Benign neoplasm of descending colon; K62.1 Rectal polyp; K29.70 Gastritis, unspecified, without bleeding; K44.9 Diaphragmatic hernia without obstruction or gangrene; K31.89 Other diseases of stomach and duodenum; K21.9 Gastro-esophageal reflux disease without esophagitis; K20.9 Esophagitis, unspecified; K58.9 Irritable bowel syndrome, unspecified; K57.30 Diverticulosis of large intestine without perforation or abscess without bleeding; J44.9 Chronic obstructive pulmonary disease, unspecified; I11.0 Hypertensive heart disease with heart failure; I50.9 Heart failure, unspecified; I25.10 Atherosclerotic heart disease of native coronary artery without angina pectoris; F17.210 Nicotine dependence, cigarettes, uncomplicated; Z01.810 Encounter for preprocedural cardiovascular examination; Z01.812 Encounter for preprocedural laboratory examination; Z11.59 Encounter for screening for other viral diseases; Z79.82 Long term (current) use of aspirin; Z80.0 Family history of malignant neoplasm of digestive organs
CPT/HCPCS: 36415; 43239; 45381; 45385; 85025; 87635; 93005; J1610; J2001; J2175; J2250; J2704; J3010; 45378; 45384

== ENCOUNTER → 2020-01-24 | Day surgery (SDC) | payer MEDICARE, OTHER ==
[2020-01-21 12:33] LABS: BASOPHILS % 0.3 % (0.0-1.0); EOSINOPHILS # (AUTO) 0.1 (0.0-0.4); EOSINOPHILS % 0.6 % (0.0-6.0); HEMATOCRIT 38.8 % (34.2-44.1); HEMOGLOBIN 12.5 g/dL (12.0-16.0); LYMPHOCYTES # (AUTO) 3.3 (1.0-3.2); LYMPHOCYTES % 34.5 % (18.0-39.1); MEAN CORPUSCULAR HEMOGLOBIN 31.3 pg (28-32); MEAN CORPUSCULAR HGB CONC 32.2 g/dL (31-35); MEAN CORPUSCULAR VOLUME 97.2 fL (81-99); MONOCYTES # (AUTO) 0.8 (0.2-0.8); MONOCYTES % 8.9 % (4.4-11.3); NEUTROPHILS # (AUTO) 5.3 (2.1-6.9); NEUTROPHILS % 55.4 % (38.7-80.0); PLATELET COUNT 260 x10e3/uL (140-360); RED BLOOD COUNT 3.99 x10e6/uL (3.6-5.1); RED CELL DISTRIBUTION WIDTH 13.3 % (11.7-14.4)
[~2020-01-24] MED LIST changes: +ALBUTEROL SULF 0.083% NEB SOLN 3 ML NEB ONE; +CRESTOR10 MG PO; -FENTANYL CITRATE/PF 100MCG/2 ML INJ ONE; -MEPERIDINE HCL INJ 25 MG/ML VIAL ONE; +PANTOPRAZOLE SO40 MG PO
[2020-01-24 15:10] VITALS: BP 145/69
--- NOTE | 2020-01-24 15:12 | Operative Report ---
DATE OF PROCEDURE: 01/24/2020 SURGEON: Hakeem Vora MD PROCEDURE: Colonoscopy with polypectomy. INDICATIONS FOR COLONOSCOPY: Personal history of multiple large colon polyps. One large polyp was partially excised on recent colonoscopy. A followup colonoscopy is being carried out to rule out synchronous colorectal neoplasm and to remove any residual polypoid tissue. MEDICATIONS: The patient was done under MAC, please see anesthesiologist's note. PROCEDURE IN DETAIL: With the patient in the left lateral decubitus position, a flexible fiberoptic Olympus colonoscope was inserted into the rectum with ease and advanced all the way to the cecum. An approximately 5 mm sessile polyp was removed per cold snare polypectomy. The scope was then withdrawn slowly and approximately 8 mm sessile polyp was noted in the ascending colon that was removed per hot snare polypectomy. An approximately 2 cm sessile polyp in the distal transverse colon was removed per hot snare polypectomy and site was hemoclipped x3. Diverticular disease was noted to involve the descending and the sigmoid colon. The rectum appeared to be within normal limits. The scope was then retroflexed into the distal rectum and the area around the dentate line appeared to be within normal limits. The scope was then straightened out, it was subsequently withdrawn, and the patient tolerated the procedure well. IMPRESSION: 1. Cecal polyp, approximately 5 mm in size, removed per cold snare polypectomy. 2. Ascending colon polyp, approximately 8 mm in size, hot snared. 3. Approximately 2 cm sessile polyp, distal transverse colon, removed per hot snare polypectomy and site hemoclipped x3. 4. Diverticulosis. PLAN: Follow up histology. Initiate high-fiber, low-fat diet. Initiate high-fiber supplement. The patient might benefit from a followup colonoscopy in one year. Hakeem Vora MD [facility] [place]/MOD[facility] /[id number] cc: Ezequiel Vora MD
--- NOTE | 2020-01-25 03:04 | Operative Report ---
DATE OF PROCEDURE: 01/24/2020 SURGEON: Hakeem Vora MD PROCEDURE: Colonoscopy with polypectomy. INDICATIONS FOR COLONOSCOPY: Personal history of multiple large colon polyps. One large polyp was partially excised on recent colonoscopy, in for a followup colonoscopy for removal of residual polypoid tissue. MEDICATIONS: The patient was done under MAC, please see anesthesiologist's note. PROCEDURE IN DETAIL: With the patient in the left lateral decubitus position, a flexible fiberoptic Olympus colonoscope was inserted into the rectum with ease and advanced all the way to the cecum. An approximately 5 mm sessile polyp in the cecum was removed per cold snare polypectomy. An approximately 8 mm sessile polyp was removed per hot snare polypectomy from the ascending colon. Approximately 2 cm sessile polyp in the distal transverse colon was removed per hot snare polypectomy and site was hemoclipped x3. Diverticular disease was noted in the descending and the sigmoid colon. The rectum appeared to be within normal limits. The scope was then retroflexed into the distal rectum and the area around the dentate line appeared to be within normal limits. The scope was then straightened out, it was subsequently withdrawn, and the patient tolerated the procedure well. IMPRESSION: 1. Cecal polyp approximately 5 mm in size, removed per cold snare polypectomy. 2. Ascending colon polyp, approximately 8 mm in size, sessile, hot snared. DICTATION ENDS HERE Hakeem Vora MD [facility] [place] /[id number]
== END | disposition home or self-care (01) ==
LOC: OR 10:45
PROVIDERS: ATTEND Internal Medicine Gastroenterology
DX: D12.0 Benign neoplasm of cecum (principal); D12.2 Benign neoplasm of ascending colon; D12.3 Benign neoplasm of transverse colon; D12.4 Benign neoplasm of descending colon; K57.30 Diverticulosis of large intestine without perforation or abscess without bleeding; K29.70 Gastritis, unspecified, without bleeding; J44.9 Chronic obstructive pulmonary disease, unspecified; E78.00 Pure hypercholesterolemia, unspecified; E78.6 Lipoprotein deficiency; M19.90 Unspecified osteoarthritis, unspecified site; I10 Essential (primary) hypertension; F17.210 Nicotine dependence, cigarettes, uncomplicated; Z01.812 Encounter for preprocedural laboratory examination; Z11.59 Encounter for screening for other viral diseases; Z79.82 Long term (current) use of aspirin; Z80.0 Family history of malignant neoplasm of digestive organs
CPT/HCPCS: 36415; 45385; 85025; J1610; J2001; J2250; J2704; U0002; 45378; 45384

== ENCOUNTER → 2020-04-29 | Outpatient (CLI) | payer MEDICARE ==
[~2020-04-29] MED LIST changes: -ALBUTEROL SULF 0.083% NEB SOLN 3 ML NEB ONE; -GLUCAGON FOR INJ 1 MG VIAL ONE; -HYOSCYAMINE 0.125 MG TAB ONE; +IOPAMIDOL 370 MG/ML 200 ML INFUS..BTL INJ ONE; -LIDOCAINE HCL 2% LOCAL INJ 5 ML SDV VIAL INJ ONE; -MIDAZOLAM HCL 2 MG/2 ML VIAL ONE; -PROPOFOL IV EMULSION 10 MG/ML 20 ML VIAL ONE; +SODIUM CHLORIDE 0.9% 50ML 50 ML ONE
[2020-04-29 09:39] LABS: BLOOD UREA NITROGEN 12 mg/dL (7-26); BUN/CREATININE RATIO 17 (6-25); CREATININE, SERUM 0.71 mg/dL (0.57-1.11); EST GLOMERULAR FILTRATION RATE > 60 ML/MIN (60-)
== END ==
LOC: NM 08:33
PROVIDERS: ATTEND Internal Medicine Gastroenterology
DX: R10.11 Right upper quadrant pain (principal)
CPT/HCPCS: 36415; 74177; 78227; 82565; 84520; A9537; Q9967

== ENCOUNTER → 2020-05-08 | Day surgery (SDC) | payer MEDICARE ==
[2020-05-06 13:24] LABS: BASOPHILS % 0.4 % (0.0-1.0); EOSINOPHILS # (AUTO) 0.1 (0.0-0.4); EOSINOPHILS % 0.7 % (0.0-6.0); HEMATOCRIT 40.9 % (34.2-44.1); HEMOGLOBIN 13.2 g/dL (12.0-16.0); LYMPHOCYTES # (AUTO) 2.9 (1.0-3.2); LYMPHOCYTES % 33.8 % (18.0-39.1); MEAN CORPUSCULAR HEMOGLOBIN 31.4 pg (28-32); MEAN CORPUSCULAR HGB CONC 32.3 g/dL (31-35); MEAN CORPUSCULAR VOLUME 97.4 fL (81-99); MONOCYTES # (AUTO) 0.8 (0.2-0.8); MONOCYTES % 9.8 % (4.4-11.3); NEUTROPHILS # (AUTO) 4.6 (2.1-6.9); NEUTROPHILS % 54.8 % (38.7-80.0); PLATELET COUNT 261 x10e3/uL (140-360); RED CELL DISTRIBUTION WIDTH 13.8 % (11.7-14.4)
[~2020-05-08] MED LIST changes: +FLUCONAZOLE 100 MG TAB PO SCH; -IOPAMIDOL 370 MG/ML 200 ML INFUS..BTL INJ ONE; +LIDOCAINE HCL 2% LOCAL INJ 5 ML SDV VIAL INJ ONE; +MIDAZOLAM HCL 2 MG/2 ML VIAL ONE; +PROPOFOL IV EMULSION 10 MG/ML 20 ML VIAL ONE; -SODIUM CHLORIDE 0.9% 50ML 50 ML ONE
[2020-05-08 13:03] VITALS: BP 134/64
== END | disposition home or self-care (01) ==
LOC: OR 09:58
PROVIDERS: ATTEND Internal Medicine Gastroenterology
DX: K22.2 Esophageal obstruction (principal); Z86.010 Personal history of colon polyps; K22.8 Other specified diseases of esophagus; K44.9 Diaphragmatic hernia without obstruction or gangrene; K29.70 Gastritis, unspecified, without bleeding; K21.9 Gastro-esophageal reflux disease without esophagitis; J44.9 Chronic obstructive pulmonary disease, unspecified; I10 Essential (primary) hypertension; G58.8 Other specified mononeuropathies; E78.00 Pure hypercholesterolemia, unspecified; F17.210 Nicotine dependence, cigarettes, uncomplicated; Z01.810 Encounter for preprocedural cardiovascular examination; Z01.812 Encounter for preprocedural laboratory examination; Z20.822 Contact with and (suspected) exposure to COVID-19; Z80.0 Family history of malignant neoplasm of digestive organs
CPT/HCPCS: 36415; 43239; 43450; 85025; 93005; J2001; J2250; J2704; U0002; 43235

== ENCOUNTER → 2020-05-15 | Outpatient (CLI) | payer MEDICARE ==
[~2020-05-15] MED LIST changes: -FLUCONAZOLE 100 MG TAB PO SCH; -LIDOCAINE HCL 2% LOCAL INJ 5 ML SDV VIAL INJ ONE; -MIDAZOLAM HCL 2 MG/2 ML VIAL ONE; -PROPOFOL IV EMULSION 10 MG/ML 20 ML VIAL ONE
== END ==
LOC: MRI 13:05
PROVIDERS: ATTEND Internal Medicine Gastroenterology
DX: K83.8 Other specified diseases of biliary tract (principal)
CPT/HCPCS: 74181

== ENCOUNTER → 2021-01-16 | Day surgery (SDC) | payer MEDICARE ==
[2021-01-13 09:06] LABS: BASOPHILS % 0.3 % (0.0-1.0); EOSINOPHILS # (AUTO) 0.1 (0.0-0.4); EOSINOPHILS % 1.1 % (0.0-6.0); HEMATOCRIT 43.4 % (34.2-44.1); HEMOGLOBIN 13.8 g/dL (12.0-16.0); LYMPHOCYTES # (AUTO) 3.1 (1.0-3.2); LYMPHOCYTES % 28.5 % (18.0-39.1); MEAN CORPUSCULAR HEMOGLOBIN 32.2 pg (28-32); MEAN CORPUSCULAR HGB CONC 31.8 g/dL (31-35); MEAN CORPUSCULAR VOLUME 101.2 fL (81-99); MONOCYTES # (AUTO) 0.8 (0.2-0.8); MONOCYTES % 7.2 % (4.4-11.3); NEUTROPHILS # (AUTO) 6.9 (2.1-6.9); NEUTROPHILS % 62.4 % (38.7-80.0); PLATELET COUNT 291 x10e3/uL (140-360); RED BLOOD COUNT 4.29 x10e6/uL (3.6-5.1); RED CELL DISTRIBUTION WIDTH 13.5 % (11.7-14.4)
[~2021-01-16] MED LIST changes: +ALBUTEROL SULF 0.083% NEB SOLN 3 ML NEB ONE; +LATANOPROST2.5 ML OP; +ONDANSETRON HCL INJ 2MG/ML 2ML 2 MG/ML VIAL ONE; +PLAVIX75 MG PO; +POVIDONE IODINE 0.05% 0.05 % ML PO ONE; +PROPOFOL IV EMULSION 10 MG/ML 20 ML VIAL ONE; +TIZANIDINE HCL2 M1
[2021-01-16 13:30] VITALS: BP 122/69
== END | disposition home or self-care (01) ==
LOC: OR 09:39
PROVIDERS: ATTEND Internal Medicine Gastroenterology
DX: K29.70 Gastritis, unspecified, without bleeding (principal); D12.0 Benign neoplasm of cecum; D12.3 Benign neoplasm of transverse colon; D12.4 Benign neoplasm of descending colon; K62.1 Rectal polyp; K22.2 Esophageal obstruction; K44.9 Diaphragmatic hernia without obstruction or gangrene; K20.90 Esophagitis, unspecified without bleeding; K21.9 Gastro-esophageal reflux disease without esophagitis; K57.30 Diverticulosis of large intestine without perforation or abscess without bleeding; K64.8 Other hemorrhoids; I10 Essential (primary) hypertension; J44.9 Chronic obstructive pulmonary disease, unspecified; F17.210 Nicotine dependence, cigarettes, uncomplicated; Z01.810 Encounter for preprocedural cardiovascular examination; Z01.812 Encounter for preprocedural laboratory examination; Z20.822 Contact with and (suspected) exposure to COVID-19; Z79.02 Long term (current) use of antithrombotics/antiplatelets; Z80.0 Family history of malignant neoplasm of digestive organs
CPT/HCPCS: 36415; 43235; 45380; 45384; 45385; 85025; 93005; J2405; J2704; U0002; 45378

== ENCOUNTER 2021-03-21 16:03 | Inpatient (IN) | payer MEDICARE ==
[~2021-03-21] VITALS: Ht 167.6 cm; Wt 71.7 kg
[2021-03-21] VITALS (7 sets, daily range): BP systolic 123–152; BP diastolic 58–90
[~2021-03-21 16:03] MED LIST changes: -ALBUTEROL SULF 0.083% NEB SOLN 3 ML NEB ONE; -ONDANSETRON HCL INJ 2MG/ML 2ML 2 MG/ML VIAL ONE; -POVIDONE IODINE 0.05% 0.05 % ML PO ONE; -PROPOFOL IV EMULSION 10 MG/ML 20 ML VIAL ONE
[2021-03-21] MEDS ORDERED: ALBUTEROL/IPRATROPIUM 3 ML NEB NEB ONE (16:15)
[2021-03-21] MEDS ORDERED: ALBUTEROL/IPRATROPIUM 3 ML NEB ONE (16:23)
[2021-03-21 16:25] LABS: BASOPHILS % 0.2 % (0.0-1.0); HEMATOCRIT 41.7 % (34.2-44.1); HEMOGLOBIN 13.3 g/dL (12.0-16.0); LYMPHOCYTES # (AUTO) 2.1 (1.0-3.2); LYMPHOCYTES % 17.5 % (18.0-39.1); MEAN CORPUSCULAR HEMOGLOBIN 31.7 pg (28-32); MEAN CORPUSCULAR HGB CONC 31.9 g/dL (31-35); MEAN CORPUSCULAR VOLUME 99.3 fL (81-99); MONOCYTES # (AUTO) 0.4 (0.2-0.8); MONOCYTES % 3.7 % (4.4-11.3); NEUTROPHILS # (AUTO) 9.3 (2.1-6.9); NEUTROPHILS % 78.1 % (38.7-80.0); PLATELET COUNT 343 x10e3/uL (140-360)
[2021-03-21 16:32] LABS: INR 0.88; PROTHROMBIN TIME 12.6 seconds (11.9-14.5)
[2021-03-21 16:33] LABS: PARTIAL THROMBOPLASTIN TIME 24.1 seconds (23.8-35.5)
[2021-03-21 16:39] LABS: ALBUMIN 3.9 g/dL (3.5-5.0); ALBUMIN/GLOBULIN RATIO 1.3 (0.8-2.0); ANION GAP 16.1 mmol/L (8-16); CREATININE, SERUM 0.91 mg/dL (0.57-1.11); POTASSIUM 4.1 mmol/L (3.5-5.1)
[2021-03-21 16:46] LABS: CREATINE KINASE MB 1.3 ng/mL (0-5.0)
[2021-03-21] MEDS ORDERED: ONDANSETRON HCL INJ 2MG/ML 2ML 2 MG/ML VIAL IV PRN (17:15)
[2021-03-21 17:38] LABS: CLARITY,URINE HAZY (CLEAR); COLOR,URINE YELLOW (YELLOW); KETONES,URINE TRACE (NEGATIVE); LEUKOCYTE ESTERASE ,URINE NEGATIVE (NEGATIVE); NITRITE,URINE NEGATIVE (NEGATIVE); PROTEIN,URINE DIPSTICK NEGATIVE (NEGATIVE); URINE UROBILINOGEN 1 mg/dL (0.2 - 1)
[2021-03-21 17:39] LABS: BACTERIA,URINE FEW /HPF; EPITHELIAL CELLS,URINE FEW /LPF; RBC,URINE 0-5 /HPF (0-5); WBC,URINE (MAN) 0-5 /HPF (0-5)
[2021-03-21 17:43] LABS: ABG PCO2 39 mmHg (35-45); ABG PH 7.48 (7.35-7.45)
[2021-03-21 17:44] LABS: ABG HCO3 29 mmol/L (22-26); ABG PO2 309 mmHg (80-105); ABG TCO2 30
[2021-03-21] MEDS: PIPERACILLIN/TAZOBACTAM 3.375 GM in SODIUM CHLORIDE 0.9% 50ML 50 ML IV SCH (18:00)
[2021-03-21] MEDS: SODIUM CHLORIDE 0.9% 1000ML 1,000 ML IV SCH (18:00)
[2021-03-21] MEDS ORDERED: DEXMEDETOMIDINE 400MCG/NS100ML 100 ML IV PRN (19:30)
[2021-03-21] MEDS: IPRATROPIUM BROMIDE 0.02% 2.5 ML NEB NEB SCH ×2 (20:25→22:42)
[2021-03-21] MEDS: ALBUTEROL SULF 0.083% NEB SOLN 3 ML NEB NEB SCH ×2 (20:26→22:42)
[2021-03-21 20:43] LABS: CREATINE KINASE MB 1.3 ng/mL (0-5.0)
[2021-03-21] MEDS: METHYLPREDNISOLONE SOD SUCC 125 MG/2ML VIAL IV SCH (21:57)
[2021-03-22] VITALS (15 sets, daily range): BP systolic 101–150; BP diastolic 44–81
[2021-03-22] MEDS: PIPERACILLIN/TAZOBACTAM 3.375 GM in SODIUM CHLORIDE 0.9% 50ML 50 ML IV SCH ×4 (00:01→18:18)
[2021-03-22 01:29] LABS: CREATINE KINASE 28 IU/L (29-168)
[2021-03-22] MEDS: IPRATROPIUM BROMIDE 0.02% 2.5 ML NEB NEB SCH ×6 (02:50→22:39)
[2021-03-22] MEDS: ALBUTEROL SULF 0.083% NEB SOLN 3 ML NEB NEB SCH ×6 (02:50→22:39)
[2021-03-22] MEDS: SODIUM CHLORIDE 0.9% 1000ML 1,000 ML IV SCH (04:43)
[2021-03-22 06:03] LABS: BASOPHILS % 0.1 % (0.0-1.0); HEMATOCRIT 34.9 % (34.2-44.1); HEMOGLOBIN 11.4 g/dL (12.0-16.0); LYMPHOCYTES # (AUTO) 1.1 (1.0-3.2); LYMPHOCYTES % 11.1 % (18.0-39.1); MEAN CORPUSCULAR HEMOGLOBIN 31.8 pg (28-32); MEAN CORPUSCULAR HGB CONC 32.7 g/dL (31-35); MEAN CORPUSCULAR VOLUME 97.5 fL (81-99); MONOCYTES # (AUTO) 0.2 (0.2-0.8); MONOCYTES % 2.2 % (4.4-11.3); NEUTROPHILS # (AUTO) 8.1 (2.1-6.9); NEUTROPHILS % 86.2 % (38.7-80.0); PLATELET COUNT 260 x10e3/uL (140-360); RED BLOOD COUNT 3.58 x10e6/uL (3.6-5.1); RED CELL DISTRIBUTION WIDTH 13.7 % (11.7-14.4)
[2021-03-22] MEDS: METHYLPREDNISOLONE SOD SUCC 125 MG/2ML VIAL IV SCH ×3 (06:10→20:55)
[2021-03-22 06:52] LABS: ALBUMIN 3.1 g/dL (3.5-5.0); ALBUMIN/GLOBULIN RATIO 1.4 (0.8-2.0); ANION GAP 13.2 mmol/L (8-16); CALCIUM 8.1 mg/dL (8.4-10.2); CREATININE, SERUM 0.63 mg/dL (0.57-1.11); POTASSIUM 4.2 mmol/L (3.5-5.1)
[2021-03-22] MEDS ORDERED: BUDESONIDE 0.5MG/2 ML NEB INH SCH (07:00)
[2021-03-22 07:14] LABS: CREATINE KINASE 27 IU/L (29-168)
[2021-03-22] MEDS ORDERED: Morphine 2mg Syringe 2 MG/ML SYR IV PRN (10:15)
[2021-03-22] MEDS: GUAIFENESIN 600 MG TAB PO SCH ×2 (12:18→12:20)
[2021-03-22] MEDS ORDERED: FUROSEMIDE INJ 10 MG/ML 4 ML VIAL IV ONE (13:00)
[2021-03-22] MEDS: HYDROCODONE/APAP 10MG-325MG TAB PO SCH ×2 (14:42→20:55)
[2021-03-22] MEDS: TIZANIDINE HCL 4 MG TAB PO SCH (16:28)
[2021-03-22] MEDS: GABAPENTIN 300 MG CAP PO SCH (16:28)
[2021-03-22] MEDS: PANTOPRAZOLE SOD 40 MG TABEC PO SCH (16:28)
[2021-03-22] MEDS: ENOXAPARIN 30 MG/0.3 ML SYR SC SCH (16:29)
[2021-03-22] MEDS ORDERED: LISINOPRIL 10 MG TAB PO SCH (17:00)
[2021-03-22] MEDS: BUDESONIDE/FORMOTEROL 160/4.5MCG INHALER INH SCH (19:00)
[2021-03-22] MEDS: SIMVASTATIN 40 MG TAB PO SCH (20:55)
[2021-03-23] VITALS (22 sets, daily range): BP systolic 99–159; BP diastolic 47–92
[2021-03-23] MEDS: PIPERACILLIN/TAZOBACTAM 3.375 GM in SODIUM CHLORIDE 0.9% 50ML 50 ML IV SCH ×5 (00:56→23:33)
[2021-03-23] MEDS: IPRATROPIUM BROMIDE 0.02% 2.5 ML NEB NEB SCH ×6 (02:51→22:24)
[2021-03-23] MEDS: ALBUTEROL SULF 0.083% NEB SOLN 3 ML NEB NEB SCH ×6 (02:51→22:24)
[2021-03-23] MEDS: METHYLPREDNISOLONE SOD SUCC 125 MG/2ML VIAL IV SCH (06:28)
[2021-03-23 07:00] LABS: BASOPHILS % 0.2 % (0.0-1.0); HEMATOCRIT 34.9 % (34.2-44.1); HEMOGLOBIN 11.3 g/dL (12.0-16.0); LYMPHOCYTES # (AUTO) 1.1 (1.0-3.2); LYMPHOCYTES % 8.4 % (18.0-39.1); MEAN CORPUSCULAR HEMOGLOBIN 31.6 pg (28-32); MEAN CORPUSCULAR HGB CONC 32.4 g/dL (31-35); MEAN CORPUSCULAR VOLUME 97.5 fL (81-99); MONOCYTES # (AUTO) 0.9 (0.2-0.8); MONOCYTES % 7.5 % (4.4-11.3); NEUTROPHILS # (AUTO) 10.5 (2.1-6.9); NEUTROPHILS % 83.3 % (38.7-80.0); PLATELET COUNT 251 x10e3/uL (140-360); RED BLOOD COUNT 3.58 x10e6/uL (3.6-5.1); RED CELL DISTRIBUTION WIDTH 13.6 % (11.7-14.4)
[2021-03-23] MEDS: BUDESONIDE/FORMOTEROL 160/4.5MCG INHALER INH SCH ×2 (07:00→18:29)
[2021-03-23 07:29] LABS: ALBUMIN 3.2 g/dL (3.5-5.0); ALBUMIN/GLOBULIN RATIO 1.4 (0.8-2.0); ANION GAP 11.1 mmol/L (8-16); CALCIUM 9.1 mg/dL (8.4-10.2); CREATININE, SERUM 0.65 mg/dL (0.57-1.11); POTASSIUM 4.1 mmol/L (3.5-5.1)
[2021-03-23] MEDS: PANTOPRAZOLE SOD 40 MG TABEC PO SCH ×2 (07:59→17:45)
[2021-03-23] MEDS: TIZANIDINE HCL 4 MG TAB PO SCH ×2 (07:59→17:45)
[2021-03-23] MEDS: HYDROCODONE/APAP 10MG-325MG TAB PO SCH ×3 (07:59→21:50)
[2021-03-23] MEDS: GABAPENTIN 300 MG CAP PO SCH ×2 (07:59→17:45)
[2021-03-23] MEDS: GUAIFENESIN 600 MG TAB PO SCH ×2 (07:59→17:45)
[2021-03-23] MEDS: LOSARTAN POTASSIUM 100 MG TAB PO SCH (08:00)
[2021-03-23] MEDS: VARENICLINE 1 MG TAB PO SCH (09:00)
[2021-03-23] MEDS ORDERED: LATANOPROST(OPTH) 2.5 ML BTL OP SCH (09:00)
[2021-03-23] MEDS: NICOTINE 21 MG/EA PATCH TOP SCH (09:00)
[2021-03-23] MEDS ORDERED: SODIUM CHLORIDE 0.9% 50ML 50 ML ONE ×2 (14:09→14:52)
[2021-03-23] MEDS: METHYLPREDNISOLONE SOD SUCC 40 MG/ML VIAL 1ML IV SCH ×2 (14:30→21:54)
[2021-03-23] MEDS: ENOXAPARIN 30 MG/0.3 ML SYR SC SCH (17:45)
[2021-03-23] MEDS: SIMVASTATIN 40 MG TAB PO SCH (21:54)
[2021-03-23] MEDS: LATANOPROST(OPTH) 2.5 ML BTL OP SCH (21:55)
[2021-03-24] VITALS (14 sets, daily range): BP systolic 98–145; BP diastolic 33–103
[2021-03-24] MEDS: ALBUTEROL SULF 0.083% NEB SOLN 3 ML NEB NEB SCH ×6 (02:29→23:20)
[2021-03-24] MEDS: IPRATROPIUM BROMIDE 0.02% 2.5 ML NEB NEB SCH ×6 (02:29→23:20)
[2021-03-24] MEDS: METHYLPREDNISOLONE SOD SUCC 40 MG/ML VIAL 1ML IV SCH ×2 (06:00→17:15)
[2021-03-24] MEDS: PIPERACILLIN/TAZOBACTAM 3.375 GM in SODIUM CHLORIDE 0.9% 50ML 50 ML IV SCH ×3 (06:00→17:15)
[2021-03-24 06:51] LABS: ANION GAP 9.9 mmol/L (8-16); CALCIUM 8.1 mg/dL (8.4-10.2); CREATININE, SERUM 0.57 mg/dL (0.57-1.11); POTASSIUM 3.9 mmol/L (3.5-5.1)
[2021-03-24 06:52] LABS: BASOPHILS % 0.1 % (0.0-1.0); HEMOGLOBIN 11.6 g/dL (12.0-16.0); LYMPHOCYTES # (AUTO) 1.1 (1.0-3.2); LYMPHOCYTES % 9.3 % (18.0-39.1); MEAN CORPUSCULAR HEMOGLOBIN 31.8 pg (28-32); MEAN CORPUSCULAR HGB CONC 32.2 g/dL (31-35); MEAN CORPUSCULAR VOLUME 98.6 fL (81-99); MONOCYTES # (AUTO) 0.8 (0.2-0.8); MONOCYTES % 6.6 % (4.4-11.3); NEUTROPHILS # (AUTO) 9.4 (2.1-6.9); PLATELET COUNT 236 x10e3/uL (140-360); RED BLOOD COUNT 3.65 x10e6/uL (3.6-5.1); RED CELL DISTRIBUTION WIDTH 13.3 % (11.7-14.4)
[2021-03-24] MEDS: BUDESONIDE/FORMOTEROL 160/4.5MCG INHALER INH SCH ×2 (07:00→19:25)
[2021-03-24] MEDS: VARENICLINE 1 MG TAB PO SCH (09:21)
[2021-03-24] MEDS: GABAPENTIN 300 MG CAP PO SCH ×2 (09:21→17:15)
[2021-03-24] MEDS: NICOTINE 21 MG/EA PATCH TOP SCH (09:21)
[2021-03-24] MEDS: TIZANIDINE HCL 4 MG TAB PO SCH ×2 (09:21→17:15)
[2021-03-24] MEDS: HYDROCODONE/APAP 10MG-325MG TAB PO SCH ×3 (09:22→22:27)
[2021-03-24] MEDS: GUAIFENESIN 600 MG TAB PO SCH ×2 (09:22→17:15)
[2021-03-24] MEDS: LOSARTAN POTASSIUM 100 MG TAB PO SCH (09:22)
[2021-03-24] MEDS: ENOXAPARIN 30 MG/0.3 ML SYR SC SCH (17:15)
[2021-03-24] MEDS: SIMVASTATIN 40 MG TAB PO SCH (22:27)
[2021-03-24] MEDS: LATANOPROST(OPTH) 2.5 ML BTL OP SCH (22:27)
[2021-03-25] VITALS (8 sets, daily range): BP systolic 92–151; BP diastolic 45–64
[2021-03-25] MEDS: PIPERACILLIN/TAZOBACTAM 3.375 GM in SODIUM CHLORIDE 0.9% 50ML 50 ML IV SCH ×5 (00:51→23:34)
[2021-03-25] MEDS: IPRATROPIUM BROMIDE 0.02% 2.5 ML NEB NEB SCH ×6 (02:35→23:15)
[2021-03-25] MEDS: ALBUTEROL SULF 0.083% NEB SOLN 3 ML NEB NEB SCH ×6 (02:35→23:15)
[2021-03-25 05:35] LABS: BASOPHILS % 0.1 % (0.0-1.0); HEMATOCRIT 34.2 % (34.2-44.1); LYMPHOCYTES # (AUTO) 1.5 (1.0-3.2); LYMPHOCYTES % 13.2 % (18.0-39.1); MEAN CORPUSCULAR HEMOGLOBIN 31.7 pg (28-32); MEAN CORPUSCULAR HGB CONC 32.2 g/dL (31-35); MEAN CORPUSCULAR VOLUME 98.6 fL (81-99); MONOCYTES % 8.9 % (4.4-11.3); NEUTROPHILS # (AUTO) 8.5 (2.1-6.9); NEUTROPHILS % 76.9 % (38.7-80.0); PLATELET COUNT 194 x10e3/uL (140-360); RED BLOOD COUNT 3.47 x10e6/uL (3.6-5.1); RED CELL DISTRIBUTION WIDTH 13.7 % (11.7-14.4)
[2021-03-25 05:44] LABS: ANION GAP 10.4 mmol/L (8-16); CALCIUM 7.7 mg/dL (8.4-10.2); CREATININE, SERUM 0.62 mg/dL (0.57-1.11); POTASSIUM 3.4 mmol/L (3.5-5.1)
[2021-03-25] MEDS: BUDESONIDE/FORMOTEROL 160/4.5MCG INHALER INH SCH ×2 (06:00→20:52)
[2021-03-25] MEDS: LOSARTAN POTASSIUM 100 MG TAB PO SCH (08:15)
[2021-03-25] MEDS: VARENICLINE 1 MG TAB PO SCH (08:15)
[2021-03-25] MEDS: METHYLPREDNISOLONE SOD SUCC 40 MG/ML VIAL 1ML IV SCH (08:15)
[2021-03-25] MEDS: GUAIFENESIN 600 MG TAB PO SCH ×2 (08:15→16:59)
[2021-03-25] MEDS: GABAPENTIN 300 MG CAP PO SCH ×2 (08:16→16:59)
[2021-03-25] MEDS: HYDROCODONE/APAP 10MG-325MG TAB PO SCH ×3 (08:17→23:44)
[2021-03-25] MEDS: TIZANIDINE HCL 4 MG TAB PO SCH ×2 (08:17→17:00)
[2021-03-25] MEDS: NICOTINE 21 MG/EA PATCH TOP SCH (08:17)
[2021-03-25] MEDS: ASPIRIN 81 MG ENTERIC COATED PO SCH (10:17)
[2021-03-25] MEDS: ENOXAPARIN 30 MG/0.3 ML SYR SC SCH (17:00)
[2021-03-25] MEDS ORDERED: DIPHENOXYLATE/ATROPINE TAB PO ONE (17:00)
[2021-03-25] MEDS: LATANOPROST(OPTH) 2.5 ML BTL OP SCH (21:00)
[2021-03-25] MEDS: SIMVASTATIN 40 MG TAB PO SCH (21:30)
[2021-03-25] MEDS ORDERED: SODIUM CHLORIDE 0.9% 250ML 250 ML ONE (23:44)
[2021-03-26] VITALS (11 sets, daily range): BP systolic 100–158; BP diastolic 51–67
[2021-03-26] MEDS: IPRATROPIUM BROMIDE 0.02% 2.5 ML NEB NEB SCH ×5 (03:40→23:00)
[2021-03-26] MEDS ORDERED: SUCRALFATE 1 GM/10 ML SUSP PO STA (04:02)
[2021-03-26] MEDS ORDERED: DICYCLOMINE HCL 20 MG TAB PO STA (04:03)
[2021-03-26] MEDS: ALBUTEROL SULF 0.083% NEB SOLN 3 ML NEB NEB SCH ×7 (04:05→23:00)
[2021-03-26 04:34] LABS: FERRITIN 82.3 ng/mL (4.63-204.00)
[2021-03-26] MEDS: PIPERACILLIN/TAZOBACTAM 3.375 GM in SODIUM CHLORIDE 0.9% 50ML 50 ML IV SCH ×3 (05:41→17:21)
[2021-03-26] MEDS: BUDESONIDE/FORMOTEROL 160/4.5MCG INHALER INH SCH ×2 (06:54→20:00)
[2021-03-26] MEDS: SUCRALFATE 1 GM/10 ML SUSP NG SCH ×4 (08:45→23:17)
[2021-03-26] MEDS: GABAPENTIN 300 MG CAP PO SCH ×2 (08:46→17:20)
[2021-03-26] MEDS: ASPIRIN 81 MG ENTERIC COATED PO SCH (08:46)
[2021-03-26] MEDS: VARENICLINE 1 MG TAB PO SCH (08:46)
[2021-03-26] MEDS: DICYCLOMINE HCL 20 MG TAB PO SCH ×4 (08:46→23:17)
[2021-03-26] MEDS: GUAIFENESIN 600 MG TAB PO SCH ×2 (08:46→17:20)
[2021-03-26] MEDS: HYDROCODONE/APAP 10MG-325MG TAB PO SCH ×3 (08:47→23:20)
[2021-03-26] MEDS: AZITHROMYCIN 250 MG TAB PO SCH (08:47)
[2021-03-26] MEDS: TIZANIDINE HCL 4 MG TAB PO SCH ×2 (08:47→17:20)
[2021-03-26] MEDS: NICOTINE 21 MG/EA PATCH TOP SCH (08:47)
[2021-03-26] MEDS: METHYLPREDNISOLONE SOD SUCC 40 MG/ML VIAL 1ML IV SCH ×2 (08:55→17:20)
[2021-03-26] MEDS: LOSARTAN POTASSIUM 100 MG TAB PO SCH (08:56)
[2021-03-26] MEDS: LIDOCAINE 4% PATCH TP SCH (09:00)
[2021-03-26] MEDS ORDERED: POTASSIUM CHLORIDE 10MEQ EA PO NR (12:00)
[2021-03-26] MEDS: ENOXAPARIN 30 MG/0.3 ML SYR SC SCH (17:20)
[2021-03-26] MEDS: LATANOPROST(OPTH) 2.5 ML BTL OP SCH (21:00)
[2021-03-26] MEDS: SIMVASTATIN 40 MG TAB PO SCH (23:17)
[2021-03-27] VITALS: BP 141/64
[2021-03-27] MEDS: IPRATROPIUM BROMIDE 0.02% 2.5 ML NEB NEB SCH ×4 (00:29→11:38)
[2021-03-27] MEDS: PIPERACILLIN/TAZOBACTAM 3.375 GM in SODIUM CHLORIDE 0.9% 50ML 50 ML IV SCH ×3 (03:43→12:03)
[2021-03-27] MEDS: ALBUTEROL SULF 0.083% NEB SOLN 3 ML NEB NEB SCH ×3 (03:50→11:38)
[2021-03-27 04:00] VITALS: BP 159/71
[2021-03-27 05:16] LABS: CALCIUM 8.6 mg/dL (8.4-10.2); CREATININE, SERUM 0.69 mg/dL (0.57-1.11)
[2021-03-27] MEDS: BUDESONIDE/FORMOTEROL 160/4.5MCG INHALER INH SCH (07:00)
[2021-03-27] MEDS: SUCRALFATE 1 GM/10 ML SUSP NG SCH ×2 (07:30→11:30)
[2021-03-27 08:05] VITALS: BP 122/54
[2021-03-27 08:55] VITALS: BP 122/54
[2021-03-27] MEDS ORDERED: FOLIC ACID 1 MG TAB PO SCH ×2 (09:00→09:30)
[2021-03-27] MEDS: ASPIRIN 81 MG ENTERIC COATED PO SCH (09:26)
[2021-03-27] MEDS: VARENICLINE 1 MG TAB PO SCH (09:26)
[2021-03-27] MEDS: METHYLPREDNISOLONE SOD SUCC 40 MG/ML VIAL 1ML IV SCH (09:26)
[2021-03-27] MEDS: DICYCLOMINE HCL 20 MG TAB PO SCH ×2 (09:26→12:53)
[2021-03-27] MEDS: GUAIFENESIN 600 MG TAB PO SCH (09:27)
[2021-03-27] MEDS: HYDROCODONE/APAP 10MG-325MG TAB PO SCH (09:27)
[2021-03-27] MEDS: LOSARTAN POTASSIUM 100 MG TAB PO SCH (09:27)
[2021-03-27] MEDS: GABAPENTIN 300 MG CAP PO SCH (09:27)
[2021-03-27] MEDS: LIDOCAINE 4% PATCH TP SCH (09:28)
[2021-03-27] MEDS: TIZANIDINE HCL 4 MG TAB PO SCH (09:28)
[2021-03-27] MEDS: NICOTINE 21 MG/EA PATCH TOP SCH (09:28)
[2021-03-27] MEDS: AZITHROMYCIN 250 MG TAB PO SCH (09:28)
[2021-03-27] MEDS ORDERED: ONDANSETRON HCL 4 MG ORAL DISINTEGRATING TAB PO PRN (10:00)
[2021-03-27 12:22] VITALS: BP 136/52
[2021-03-27] MEDS ORDERED: DICYCLOMINE HCL20 MG PO (13:09)
[2021-03-27] MEDS ORDERED: AUGMENTIN 875-1 EACH PO (13:09)
[2021-03-27] MEDS ORDERED: PREDNISONE20 MG PO (13:09)
[2021-03-27] MEDS ORDERED: AZITHROMYCIN250 MG PO (13:09)
[2021-03-27] MEDS ORDERED: ASPIRIN EC81 MG PO (13:09)
[2021-03-27] MEDS ORDERED: VARENICLINE TA0.5 MG PO (13:14)
[2021-03-27] MEDS ORDERED: VARENICLINE TART1 MG PO (13:14)
[2021-03-27] MEDS ORDERED: PANTOPRAZOLE SOD 40 MG TABEC PO SCH (16:30)
[2021-03-28] MEDS ORDERED: PREDNISONE 20 MG TAB PO SCH (09:00)
== END 2021-03-27 15:02 | disposition home or self-care (01) | DRG 191 ==
LOC: ER 16:13 → ERHOLD 17:14 → ICU 19:53 → MED/SURG2 03-25 17:25
PROC: 02HV33Z Insertion of Infusion Device into Superior Vena Cava, Percutaneous Approach (ICD-10-PCS; principal; 2021-03-21)
DX: J43.9 Emphysema, unspecified (principal); K52.1 Toxic gastroenteritis and colitis; I50.32 Chronic diastolic (congestive) heart failure; J96.11 Chronic respiratory failure with hypoxia; J39.8 Other specified diseases of upper respiratory tract; F17.210 Nicotine dependence, cigarettes, uncomplicated; I25.10 Atherosclerotic heart disease of native coronary artery without angina pectoris; K21.9 Gastro-esophageal reflux disease without esophagitis; H40.9 Unspecified glaucoma; I11.0 Hypertensive heart disease with heart failure; I73.9 Peripheral vascular disease, unspecified; E78.00 Pure hypercholesterolemia, unspecified; F41.9 Anxiety disorder, unspecified; R13.10 Dysphagia, unspecified; J20.9 Acute bronchitis, unspecified; T36.95XA Adverse effect of unspecified systemic antibiotic, initial encounter; Z20.822 Contact with and (suspected) exposure to COVID-19; I25.9 Chronic ischemic heart disease, unspecified; R91.8 Other nonspecific abnormal finding of lung field
CPT/HCPCS: 36415; 36569; 36600; 51700; 71045; 80048; 80053; 80061; 81001; 82550; 82553; 82607; 82728; 82746; 82805; 82948; 83090; 83540; 83605; 83735; 83880; 84466; 84484; 85025; 85045; 85610; 85730; 87040; 87070; 87086; 87205; 93005; 93306; 94640; 94660; 94664; 94799; 97139; 99251; 99285; J0456; J1650; J1940; J2270; J2543; J2920; J2930; J7030; J7050; U0002

== ENCOUNTER → 2021-06-09 | Day surgery (SDC) | payer MEDICARE ==
[2021-06-08 11:17] LABS: BASOPHILS % 0.3 % (0.0-1.0); EOSINOPHILS # (AUTO) 0.1 (0.0-0.4); EOSINOPHILS % 0.8 % (0.0-6.0); HEMATOCRIT 44.6 % (34.2-44.1); HEMOGLOBIN 13.7 g/dL (12.0-16.0); LYMPHOCYTES # (AUTO) 2.6 (1.0-3.2); LYMPHOCYTES % 33.9 % (18.0-39.1); MEAN CORPUSCULAR HEMOGLOBIN 31.4 pg (28-32); MEAN CORPUSCULAR HGB CONC 30.7 g/dL (31-35); MEAN CORPUSCULAR VOLUME 102.1 fL (81-99); MONOCYTES # (AUTO) 0.5 (0.2-0.8); MONOCYTES % 5.8 % (4.4-11.3); NEUTROPHILS # (AUTO) 4.6 (2.1-6.9); NEUTROPHILS % 58.9 % (38.7-80.0); PLATELET COUNT 254 x10e3/uL (140-360); RED BLOOD COUNT 4.37 x10e6/uL (3.6-5.1); RED CELL DISTRIBUTION WIDTH 13.5 % (11.7-14.4)
[~2021-06-09] MED LIST changes: +ASPIRIN EC81 MG PO; +AUGMENTIN 875-1 EACH PO; +AZITHROMYCIN250 MG PO; +DICYCLOMINE HCL20 MG PO; +GLUCAGON FOR INJ 1 MG VIAL ONE; +HYOSCYAMINE SULFATE 0.5 MG/ML INJ ONE; +KETAMINE HCL INJ 50 MG/ML 10 ML VIAL ONE; +PREDNISONE20 MG PO; +PROPOFOL IV EMULSION 10 MG/ML 20 ML VIAL ONE; +VARENICLINE TA0.5 MG PO; +VARENICLINE TART1 MG PO
[2021-06-09 14:20] VITALS: BP 115/50
== END | disposition home or self-care (01) ==
LOC: OR 10:06
PROVIDERS: ATTEND Internal Medicine Gastroenterology
DX: Z12.11 Encounter for screening for malignant neoplasm of colon (principal); D12.0 Benign neoplasm of cecum; D12.2 Benign neoplasm of ascending colon; D12.3 Benign neoplasm of transverse colon; D12.4 Benign neoplasm of descending colon; D12.5 Benign neoplasm of sigmoid colon; K63.89 Other specified diseases of intestine; K62.89 Other specified diseases of anus and rectum; K57.30 Diverticulosis of large intestine without perforation or abscess without bleeding; K58.9 Irritable bowel syndrome, unspecified; K29.70 Gastritis, unspecified, without bleeding; J44.9 Chronic obstructive pulmonary disease, unspecified; I25.10 Atherosclerotic heart disease of native coronary artery without angina pectoris; I10 Essential (primary) hypertension; F17.210 Nicotine dependence, cigarettes, uncomplicated; Z71.6 Tobacco abuse counseling; Z01.812 Encounter for preprocedural laboratory examination; Z20.822 Contact with and (suspected) exposure to COVID-19; Z79.82 Long term (current) use of aspirin; Z79.899 Other long term (current) drug therapy; Z80.0 Family history of malignant neoplasm of digestive organs
CPT/HCPCS: 36415; 45380; 45385; 71046; 85025; J1610; J1980; J2704; U0002; 45378

== ENCOUNTER 2021-07-04 11:58 | Inpatient (IN) | payer MEDICARE ==
[~2021-07-04] VITALS: Ht 320 cm; Wt 71.7 kg
[2021-07-04] MEDS: BUDESONIDE 0.5MG/2 ML NEB INH SCH (00:05)
[~2021-07-04 11:58] MED LIST changes: -GLUCAGON FOR INJ 1 MG VIAL ONE; -HYOSCYAMINE SULFATE 0.5 MG/ML INJ ONE; -KETAMINE HCL INJ 50 MG/ML 10 ML VIAL ONE; -PROPOFOL IV EMULSION 10 MG/ML 20 ML VIAL ONE; -TIZANIDINE HCL2 M1; +TIZANIDINE HCL2 M1 PO
[2021-07-04] MEDS ORDERED: METHYLPREDNISOLONE SOD SUCC 125 MG/2ML VIAL IV ONE (12:30)
[2021-07-04] MEDS ORDERED: ALBUTEROL/IPRATROPIUM 3 ML NEB NEB NR (12:30)
[2021-07-04 12:44] LABS: BASOPHILS % 0.3 % (0.0-1.0); HEMOGLOBIN 13.4 g/dL (12.0-16.0); LYMPHOCYTES # (AUTO) 1.5 (1.0-3.2); LYMPHOCYTES % 13.1 % (18.0-39.1); MEAN CORPUSCULAR HEMOGLOBIN 32.1 pg (28-32); MEAN CORPUSCULAR HGB CONC 33.5 g/dL (31-35); MEAN CORPUSCULAR VOLUME 95.9 fL (81-99); MONOCYTES # (AUTO) 0.3 (0.2-0.8); MONOCYTES % 2.3 % (4.4-11.3); NEUTROPHILS # (AUTO) 9.7 (2.1-6.9); NEUTROPHILS % 84.1 % (38.7-80.0); PLATELET COUNT 253 x10e3/uL (140-360); RED BLOOD COUNT 4.17 x10e6/uL (3.6-5.1); RED CELL DISTRIBUTION WIDTH 13.4 % (11.7-14.4)
[2021-07-04] MEDS ORDERED: ONDANSETRON HCL INJ 2MG/ML 2ML 2 MG/ML VIAL IV NR (13:06)
[2021-07-04 13:11] LABS: BAND NEUTROPHILS % (MANUAL) 13 %; LYMPHOCYTES % (MANUAL) 27 % (19-48); METAMYELOCYTES % (MANUAL) 4 % (0-0); MONOCYTES % (MANUAL) 5 % (3.4-9.0); MYELOCYTES % (MANUAL) 1 % (0-0); NEUTROPHILS % (MANUAL) 50 % (40-74); PLATELET ESTIMATE ADEQUATE
[2021-07-04 13:12] LABS: PLATELET MORPHOLOGY COMMENT NORMAL; RBC MORPHOLOGY COMMENT NORMAL
[2021-07-04] MEDS ORDERED: SODIUM CHLORIDE 0.9% 1000ML 1,500 ML IV ONE (13:15)
[2021-07-04] MEDS ORDERED: ACETAMINOPHEN 325 MG TAB PO PRN (13:15)
[2021-07-04 13:16] LABS: LIPASE < 4 U/L (8-78)
[2021-07-04 13:17] LABS: ALBUMIN 3.4 g/dL (3.5-5.0); ALBUMIN/GLOBULIN RATIO 1.1 (0.8-2.0); CALCIUM 9.4 mg/dL (8.4-10.2); CREATININE, SERUM 0.82 mg/dL (0.57-1.11)
[2021-07-04] MEDS ORDERED: SODIUM CHLORIDE 0.9% 50ML 50 ML ONE (13:34)
[2021-07-04] MEDS ORDERED: KETOROLAC TROMETHAMINE 30 MG/ML VIAL IV PRN (15:00)
[2021-07-04 16:44] VITALS: BP 92/44
[2021-07-04 16:45] VITALS: BP 92/44
[2021-07-04 20:00] VITALS: BP 95/59
[2021-07-04] MEDS ORDERED: CEFEPIME 1 GM in SODIUM CHLORIDE 0.9% 50ML 50 ML IV SCH (20:45)
[2021-07-04] MEDS ORDERED: Vancomycin IV 1 GM in SODIUM CHLORIDE 0.9% 250ML 250 ML IV ONE (21:00)
[2021-07-04] MEDS: METHYLPREDNISOLONE SOD SUCC 40 MG/ML VIAL 1ML IV SCH (21:04)
[2021-07-04 21:24] VITALS: BP 95/59
[2021-07-04] MEDS ORDERED: SODIUM CHLORIDE 0.9% 1000ML 1,000 ML IV ONE (22:00)
[2021-07-04] MEDS: SODIUM CHLORIDE 0.9% 1000ML 1,000 ML IV SCH (22:30)
[2021-07-05] VITALS (8 sets, daily range): BP systolic 69–97; BP diastolic 40–62
[2021-07-05] MEDS: ALBUTEROL/IPRATROPIUM 3 ML NEB NEB SCH ×4 (00:05→19:15)
[2021-07-05] MEDS ORDERED: ALBUTEROL SULF 0.083% NEB SOLN 3 ML NEB NEB PRN (00:30)
[2021-07-05 06:12] LABS: BASOPHILS % 0.4 % (0.0-1.0); HEMATOCRIT 31.9 % (34.2-44.1); HEMOGLOBIN 10.5 g/dL (12.0-16.0); LYMPHOCYTES # (AUTO) 0.8 (1.0-3.2); LYMPHOCYTES % 7.6 % (18.0-39.1); MEAN CORPUSCULAR HEMOGLOBIN 31.9 pg (28-32); MEAN CORPUSCULAR HGB CONC 32.9 g/dL (31-35); MONOCYTES # (AUTO) 0.3 (0.2-0.8); MONOCYTES % 2.6 % (4.4-11.3); NEUTROPHILS # (AUTO) 8.5 (2.1-6.9); NEUTROPHILS % 79.4 % (38.7-80.0); PLATELET COUNT 183 x10e3/uL (140-360); RED BLOOD COUNT 3.29 x10e6/uL (3.6-5.1); RED CELL DISTRIBUTION WIDTH 13.2 % (11.7-14.4)
[2021-07-05] MEDS: CEFEPIME 1 GM in SODIUM CHLORIDE 0.9% 50ML 50 ML IV SCH ×3 (06:14→21:43)
[2021-07-05] MEDS: SODIUM CHLORIDE 0.9% 1000ML 1,000 ML IV SCH ×2 (06:15→16:45)
[2021-07-05] MEDS: BUDESONIDE 0.5MG/2 ML NEB INH SCH ×2 (06:30→19:25)
[2021-07-05 06:34] LABS: ANION GAP 12.2 mmol/L (8-16); CALCIUM 8.9 mg/dL (8.4-10.2); CREATININE, SERUM 0.64 mg/dL (0.57-1.11); POTASSIUM 4.2 mmol/L (3.5-5.1)
[2021-07-05 07:34] LABS: BAND NEUTROPHILS % (MANUAL) 24 %; LYMPHOCYTES % (MANUAL) 18 % (19-48); METAMYELOCYTES % (MANUAL) 11 % (0-0); MONOCYTES % (MANUAL) 2 % (3.4-9.0); MYELOCYTES % (MANUAL) 9 % (0-0); NEUTROPHILS % (MANUAL) 35 % (40-74); PROMYELOCYTES % (MANUAL) 1 % (0-0)
[2021-07-05 07:36] LABS: PLATELET ESTIMATE ADEQUATE; PLATELET MORPHOLOGY COMMENT NORMAL; RBC MORPHOLOGY COMMENT NORMAL
[2021-07-05] MEDS: LISINOPRIL 10 MG TAB PO SCH ×2 (09:00→17:00)
[2021-07-05] MEDS ORDERED: CEFTRIAXONE 1 GM in SODIUM CHLORIDE 0.9% 50ML 50 ML IV SCH (09:00)
[2021-07-05] MEDS: LATANOPROST(OPTH) 2.5 ML BTL OP SCH ×2 (09:00→12:50)
[2021-07-05] MEDS: IPRATROPIUM/ALBUTEROL SULFATE 4 GM INH INH SCH ×2 (09:00→19:00)
[2021-07-05] MEDS: DICYCLOMINE HCL 20 MG TAB PO SCH ×4 (09:10→21:42)
[2021-07-05] MEDS: PANTOPRAZOLE SOD 40 MG TABEC PO SCH ×2 (09:10→17:25)
[2021-07-05] MEDS: METHYLPREDNISOLONE SOD SUCC 40 MG/ML VIAL 1ML IV SCH ×2 (09:10→21:04)
[2021-07-05] MEDS: GABAPENTIN 300 MG CAP PO SCH ×2 (09:11→17:25)
[2021-07-05] MEDS: TIZANIDINE HCL 4 MG TAB PO SCH ×2 (09:11→17:26)
[2021-07-05] MEDS: HYDROCODONE/APAP 10MG-325MG TAB PO SCH ×4 (09:11→21:03)
[2021-07-05] MEDS: AZITHROMYCIN 250 MG TAB PO SCH (09:12)
[2021-07-05] MEDS ORDERED: PANTOPRAZOLE SOD 40 MG TABEC PO NR (09:45)
[2021-07-05] MEDS: BUDESONIDE/FORMOTEROL 160/4.5MCG INHALER INH SCH ×2 (10:00→19:00)
[2021-07-05] MEDS: NICOTINE 21 MG/EA PATCH TOP SCH (11:05)
[2021-07-05] MEDS: HEPARIN SOD (PORCINE) 5,000 UNIT/ML VIAL SC SCH ×2 (11:05→21:42)
[2021-07-05] MEDS ORDERED: SODIUM CHLORIDE 0.9% 250ML 250 ML ONE (11:07)
[2021-07-05] MEDS: ONDANSETRON HCL INJ 2MG/ML 2ML 2 MG/ML VIAL IV PRN ×3 (12:12→21:03)
[2021-07-05] MEDS ORDERED: KETOROLAC TROMETHAMINE 30 MG/ML VIAL IV PRN (12:45)
[2021-07-05] MEDS ORDERED: CELECOXIB 100 MG CAP PO SCH (17:00)
[2021-07-05] MEDS: SIMVASTATIN 20 MG TAB PO SCH (21:42)
[2021-07-06] VITALS (8 sets, daily range): BP systolic 94–117; BP diastolic 53–67
[2021-07-06] MEDS: ALBUTEROL/IPRATROPIUM 3 ML NEB NEB SCH ×3 (01:00→19:00)
[2021-07-06] MEDS: SODIUM CHLORIDE 0.9% 1000ML 1,000 ML IV SCH (01:35)
[2021-07-06] MEDS: CEFEPIME 1 GM in SODIUM CHLORIDE 0.9% 50ML 50 ML IV SCH ×3 (05:31→20:13)
[2021-07-06 06:27] LABS: BASOPHILS # (AUTO) 0.1 (0.0-0.1); BASOPHILS % 0.5 % (0.0-1.0); HEMATOCRIT 31.3 % (34.2-44.1); HEMOGLOBIN 10.3 g/dL (12.0-16.0); LYMPHOCYTES # (AUTO) 0.7 (1.0-3.2); LYMPHOCYTES % 5.2 % (18.0-39.1); MEAN CORPUSCULAR HEMOGLOBIN 31.8 pg (28-32); MEAN CORPUSCULAR HGB CONC 32.9 g/dL (31-35); MEAN CORPUSCULAR VOLUME 96.6 fL (81-99); MONOCYTES # (AUTO) 0.3 (0.2-0.8); MONOCYTES % 2.3 % (4.4-11.3); NEUTROPHILS # (AUTO) 12.1 (2.1-6.9); NEUTROPHILS % 91.4 % (38.7-80.0); PLATELET COUNT 182 x10e3/uL (140-360); RED BLOOD COUNT 3.24 x10e6/uL (3.6-5.1); RED CELL DISTRIBUTION WIDTH 13.4 % (11.7-14.4)
[2021-07-06] MEDS: ONDANSETRON HCL INJ 2MG/ML 2ML 2 MG/ML VIAL IV PRN ×2 (06:32→12:15)
[2021-07-06 06:45] LABS: ANION GAP 9.8 mmol/L (8-16); CALCIUM 8.9 mg/dL (8.4-10.2); CREATININE, SERUM 0.58 mg/dL (0.57-1.11); POTASSIUM 3.8 mmol/L (3.5-5.1)
[2021-07-06] MEDS: BUDESONIDE 0.5MG/2 ML NEB INH SCH (07:15)
[2021-07-06] MEDS: IPRATROPIUM/ALBUTEROL SULFATE 4 GM INH INH SCH ×3 (07:23→20:13)
[2021-07-06] MEDS: PANTOPRAZOLE SOD 40 MG TABEC PO SCH ×2 (07:30→08:41)
[2021-07-06] MEDS: METHYLPREDNISOLONE SOD SUCC 40 MG/ML VIAL 1ML IV SCH (08:36)
[2021-07-06] MEDS: NICOTINE 21 MG/EA PATCH TOP SCH (08:38)
[2021-07-06] MEDS: GABAPENTIN 300 MG CAP PO SCH ×2 (08:41→16:25)
[2021-07-06] MEDS: DICYCLOMINE HCL 20 MG TAB PO SCH ×4 (08:41→20:12)
[2021-07-06] MEDS: LISINOPRIL 10 MG TAB PO SCH ×2 (08:42→16:26)
[2021-07-06] MEDS: HYDROCODONE/APAP 10MG-325MG TAB PO SCH ×4 (08:42→20:13)
[2021-07-06] MEDS: TIZANIDINE HCL 4 MG TAB PO SCH ×2 (08:43→16:26)
[2021-07-06] MEDS: AZITHROMYCIN 250 MG TAB PO SCH (08:43)
[2021-07-06] MEDS: HEPARIN SOD (PORCINE) 5,000 UNIT/ML VIAL SC SCH ×2 (09:00→20:21)
[2021-07-06] MEDS: BUDESONIDE/FORMOTEROL 160/4.5MCG INHALER INH SCH ×3 (09:06→20:43)
[2021-07-06 11:27] LABS: BAND NEUTROPHILS % (MANUAL) 2 %; LYMPHOCYTES % (MANUAL) 3 % (19-48); MONOCYTES % (MANUAL) 2 % (3.4-9.0); NEUTROPHILS % (MANUAL) 93 % (40-74)
[2021-07-06 11:28] LABS: PLATELET ESTIMATE ADEQUATE; PLATELET MORPHOLOGY COMMENT NORMAL; RBC MORPHOLOGY COMMENT NORMAL
[2021-07-06] MEDS: DOXYCYCLINE HYCLATE TABLET 100 MG TAB PO SCH (16:26)
[2021-07-06] MEDS: SIMVASTATIN 20 MG TAB PO SCH (20:13)
[2021-07-07] VITALS (8 sets, daily range): BP systolic 102–129; BP diastolic 52–67
[2021-07-07] MEDS: ALBUTEROL/IPRATROPIUM 3 ML NEB NEB SCH ×4 (01:00→17:40)
[2021-07-07] MEDS: SODIUM CHLORIDE 0.9% 1000ML 1,000 ML IV SCH ×4 (04:04→21:43)
[2021-07-07 04:38] LABS: BASOPHILS # (AUTO) 0.1 (0.0-0.1); BASOPHILS % 0.5 % (0.0-1.0); EOSINOPHILS % 0.1 % (0.0-6.0); HEMATOCRIT 31.5 % (34.2-44.1); HEMOGLOBIN 10.3 g/dL (12.0-16.0); LYMPHOCYTES # (AUTO) 0.9 (1.0-3.2); LYMPHOCYTES % 6.3 % (18.0-39.1); MEAN CORPUSCULAR HEMOGLOBIN 32.4 pg (28-32); MEAN CORPUSCULAR HGB CONC 32.7 g/dL (31-35); MEAN CORPUSCULAR VOLUME 99.1 fL (81-99); MONOCYTES # (AUTO) 0.6 (0.2-0.8); MONOCYTES % 4.1 % (4.4-11.3); NEUTROPHILS # (AUTO) 12.5 (2.1-6.9); NEUTROPHILS % 87.6 % (38.7-80.0); PLATELET COUNT 204 x10e3/uL (140-360); RED BLOOD COUNT 3.18 x10e6/uL (3.6-5.1); RED CELL DISTRIBUTION WIDTH 13.4 % (11.7-14.4)
[2021-07-07 04:56] LABS: CALCIUM 9.2 mg/dL (8.4-10.2); CREATININE, SERUM 0.6 mg/dL (0.57-1.11)
[2021-07-07] MEDS: CEFEPIME 1 GM in SODIUM CHLORIDE 0.9% 50ML 50 ML IV SCH ×3 (05:01→21:44)
[2021-07-07] MEDS: IPRATROPIUM/ALBUTEROL SULFATE 4 GM INH INH SCH ×2 (06:50→18:20)
[2021-07-07] MEDS: BUDESONIDE/FORMOTEROL 160/4.5MCG INHALER INH SCH ×2 (06:50→18:20)
[2021-07-07] MEDS: PANTOPRAZOLE SOD 40 MG TABEC PO SCH (08:30)
[2021-07-07] MEDS: METHYLPREDNISOLONE SOD SUCC 40 MG/ML VIAL 1ML IV SCH (08:30)
[2021-07-07 08:44] LABS: LYMPHOCYTES % (MANUAL) 5 % (19-48); MONOCYTES % (MANUAL) 3 % (3.4-9.0); MYELOCYTES % (MANUAL) 2 % (0-0); NEUTROPHILS % (MANUAL) 90 % (40-74); PLATELET ESTIMATE ADEQUATE; PLATELET MORPHOLOGY COMMENT NORMAL
[2021-07-07 08:45] LABS: RBC MORPHOLOGY COMMENT NORMAL
[2021-07-07] MEDS: HEPARIN SOD (PORCINE) 5,000 UNIT/ML VIAL SC SCH ×2 (09:00→21:44)
[2021-07-07] MEDS: LATANOPROST(OPTH) 2.5 ML BTL OP SCH (09:06)
[2021-07-07] MEDS: HYDROCODONE/APAP 10MG-325MG TAB PO SCH ×4 (09:10→21:43)
[2021-07-07] MEDS: DICYCLOMINE HCL 20 MG TAB PO SCH ×4 (09:10→21:43)
[2021-07-07] MEDS: GABAPENTIN 300 MG CAP PO SCH ×2 (09:10→17:47)
[2021-07-07] MEDS: DOXYCYCLINE HYCLATE TABLET 100 MG TAB PO SCH ×2 (09:11→17:47)
[2021-07-07] MEDS: LISINOPRIL 10 MG TAB PO SCH ×2 (09:11→17:47)
[2021-07-07] MEDS: NICOTINE 21 MG/EA PATCH TOP SCH (09:12)
[2021-07-07] MEDS: TIZANIDINE HCL 4 MG TAB PO SCH ×2 (09:12→17:47)
[2021-07-07] MEDS ORDERED: BISACODYL 5 MG TAB EC PO NR ×2 (15:00→18:00)
[2021-07-07] MEDS ORDERED: GUAIFENESIN 600 MG TAB PO PRN (17:45)
[2021-07-07] MEDS: GUAIFENESIN 600 MG TAB PO SCH ×2 (18:00→21:45)
[2021-07-07] MEDS ORDERED: CITRATE OF MAGNESIA 300ML BOTTLE PO NR (21:00)
[2021-07-07] MEDS: SIMVASTATIN 20 MG TAB PO SCH (21:43)
[2021-07-08] VITALS (8 sets, daily range): BP systolic 108–151; BP diastolic 55–76
[2021-07-08] MEDS: ALBUTEROL/IPRATROPIUM 3 ML NEB NEB SCH ×4 (00:54→19:20)
[2021-07-08] MEDS: ONDANSETRON HCL INJ 2MG/ML 2ML 2 MG/ML VIAL IV PRN ×3 (01:53→15:33)
[2021-07-08] MEDS: SODIUM CHLORIDE 0.9% 1000ML 1,000 ML IV SCH ×2 (04:51→15:33)
[2021-07-08] MEDS: CEFEPIME 1 GM in SODIUM CHLORIDE 0.9% 50ML 50 ML IV SCH (05:32)
[2021-07-08] MEDS: GUAIFENESIN 600 MG TAB PO SCH ×3 (05:32→21:49)
[2021-07-08] MEDS: BUDESONIDE/FORMOTEROL 160/4.5MCG INHALER INH SCH ×2 (06:31→19:38)
[2021-07-08] MEDS: IPRATROPIUM/ALBUTEROL SULFATE 4 GM INH INH SCH ×2 (06:31→19:37)
[2021-07-08] MEDS ORDERED: CITRATE OF MAGNESIA 300ML BOTTLE PO NR (07:00)
[2021-07-08] MEDS: METHYLPREDNISOLONE SOD SUCC 40 MG/ML VIAL 1ML IV SCH (08:30)
[2021-07-08] MEDS: PANTOPRAZOLE SOD 40 MG TABEC PO SCH ×2 (08:30→21:49)
[2021-07-08] MEDS: HEPARIN SOD (PORCINE) 5,000 UNIT/ML VIAL SC SCH ×2 (09:00→21:37)
[2021-07-08] MEDS: HYDROCODONE/APAP 10MG-325MG TAB PO SCH ×4 (09:24→21:50)
[2021-07-08] MEDS: GABAPENTIN 300 MG CAP PO SCH ×2 (09:24→17:35)
[2021-07-08] MEDS: DICYCLOMINE HCL 20 MG TAB PO SCH ×4 (09:24→21:49)
[2021-07-08] MEDS: TIZANIDINE HCL 4 MG TAB PO SCH ×2 (09:25→17:35)
[2021-07-08] MEDS: NICOTINE 21 MG/EA PATCH TOP SCH (09:25)
[2021-07-08] MEDS: LISINOPRIL 10 MG TAB PO SCH ×2 (09:25→17:36)
[2021-07-08] MEDS: DOXYCYCLINE HYCLATE TABLET 100 MG TAB PO SCH (09:25)
[2021-07-08] MEDS ORDERED: SUCRALFATE 1 GM/10 ML SUSP NG PRN (10:00)
[2021-07-08] MEDS ORDERED: CEPACOL SORE THROAT LOZENGES PO PRN (10:00)
[2021-07-08] MEDS: PIPERACILLIN/TAZOBACTAM 2.25 GM in SODIUM CHLORIDE 0.9% 50ML 50 ML IV SCH ×2 (12:45→18:09)
[2021-07-08] MEDS: NYSTATIN SUSPENSION 5 ML UDC PO SCH ×3 (13:24→21:50)
[2021-07-08] MEDS ORDERED: PROMETHAZINE HCL (IM) 25 MG/ML VIAL IM PRN (16:00)
[2021-07-08] MEDS: METOCLOPRAMIDE HCL 10 MG/2ML VIAL IV SCH ×2 (17:00→21:47)
[2021-07-08] MEDS ORDERED: LATANOPROST(OPTH) 2.5 ML BTL OP SCH (21:00)
[2021-07-08] MEDS: SIMVASTATIN 20 MG TAB PO SCH (21:49)
[2021-07-09 00:08] VITALS: BP 114/47
[2021-07-09] MEDS: PIPERACILLIN/TAZOBACTAM 2.25 GM in SODIUM CHLORIDE 0.9% 50ML 50 ML IV SCH ×2 (00:10→05:34)
[2021-07-09] MEDS: ALBUTEROL/IPRATROPIUM 3 ML NEB NEB SCH ×3 (00:20→13:00)
[2021-07-09 04:02] VITALS: BP 121/53
[2021-07-09] MEDS: NYSTATIN SUSPENSION 5 ML UDC PO SCH ×2 (05:09→09:16)
[2021-07-09] MEDS: SODIUM CHLORIDE 0.9% 1000ML 1,000 ML IV SCH (05:34)
[2021-07-09] MEDS: GUAIFENESIN 600 MG TAB PO SCH (05:34)
[2021-07-09 06:08] LABS: BASOPHILS % 0.3 % (0.0-1.0); EOSINOPHILS % 0.1 % (0.0-6.0); HEMATOCRIT 28.7 % (34.2-44.1); HEMOGLOBIN 9.3 g/dL (12.0-16.0); LYMPHOCYTES # (AUTO) 2.2 (1.0-3.2); LYMPHOCYTES % 20.8 % (18.0-39.1); MEAN CORPUSCULAR HEMOGLOBIN 31.6 pg (28-32); MEAN CORPUSCULAR HGB CONC 32.4 g/dL (31-35); MEAN CORPUSCULAR VOLUME 97.6 fL (81-99); MONOCYTES % 8.9 % (4.4-11.3); NEUTROPHILS # (AUTO) 6.7 (2.1-6.9); NEUTROPHILS % 62.8 % (38.7-80.0); PLATELET COUNT 193 x10e3/uL (140-360); RED BLOOD COUNT 2.94 x10e6/uL (3.6-5.1); RED CELL DISTRIBUTION WIDTH 13.7 % (11.7-14.4)
[2021-07-09 06:36] LABS: ALBUMIN 2.2 g/dL (3.5-5.0); ANION GAP 9.5 mmol/L (8-16); CALCIUM 8.5 mg/dL (8.4-10.2); CREATININE, SERUM 0.57 mg/dL (0.57-1.11); POTASSIUM 3.5 mmol/L (3.5-5.1)
[2021-07-09 07:42] VITALS: BP 136/78
[2021-07-09 07:58] VITALS: BP 136/78
[2021-07-09] MEDS: METHYLPREDNISOLONE SOD SUCC 40 MG/ML VIAL 1ML IV SCH (08:00)
[2021-07-09] MEDS: METOCLOPRAMIDE HCL 10 MG/2ML VIAL IV SCH (08:05)
[2021-07-09] MEDS: HYDROCODONE/APAP 10MG-325MG TAB PO SCH (09:00)
[2021-07-09] MEDS: HEPARIN SOD (PORCINE) 5,000 UNIT/ML VIAL SC SCH (09:00)
[2021-07-09] MEDS ORDERED: DOXYCYCLINE HYCLATE TABLET 100 MG TAB PO SCH (09:00)
[2021-07-09] MEDS: DICYCLOMINE HCL 20 MG TAB PO SCH (09:16)
[2021-07-09] MEDS: GABAPENTIN 300 MG CAP PO SCH (09:16)
[2021-07-09] MEDS: LISINOPRIL 10 MG TAB PO SCH (09:17)
[2021-07-09] MEDS: PANTOPRAZOLE SOD 40 MG TABEC PO SCH (09:17)
[2021-07-09] MEDS: TIZANIDINE HCL 4 MG TAB PO SCH (09:17)
[2021-07-09] MEDS: NICOTINE 21 MG/EA PATCH TOP SCH (09:17)
[2021-07-09 10:45] VITALS: BP 108/51
[2021-07-09] MEDS ORDERED: ONDANSETRON HCL 4 MG ORAL DISINTEGRATING TAB PO PRN (13:00)
[2021-07-09] MEDS ORDERED: METOCLOPRAMIDE HCL 10 MG TAB PO SCH (16:30)
== END 2021-07-09 14:06 | disposition home health service (06) | DRG 190 ==
LOC: ER 12:13 → ERHOLD 14:03 → MED/SURG3 16:01
PROC: 02HV33Z Insertion of Infusion Device into Superior Vena Cava, Percutaneous Approach (ICD-10-PCS; principal; 2021-07-04)
PROC: 3E04329 Introduction of Other Anti-infective into Central Vein, Percutaneous Approach (ICD-10-PCS; 2021-07-04)
DX: J44.0 Chronic obstructive pulmonary disease with (acute) lower respiratory infection (principal); J18.9 Pneumonia, unspecified organism; J44.1 Chronic obstructive pulmonary disease with (acute) exacerbation; I10 Essential (primary) hypertension; K21.9 Gastro-esophageal reflux disease without esophagitis; E78.5 Hyperlipidemia, unspecified; F17.210 Nicotine dependence, cigarettes, uncomplicated; M54.9 Dorsalgia, unspecified; D64.9 Anemia, unspecified; Z20.822 Contact with and (suspected) exposure to COVID-19
CPT/HCPCS: 36415; 36569; 71045; 71046; 74176; 76604; 80048; 80053; 83605; 83690; 83880; 84484; 85025; 87040; 87070; 87205; 93005; 94640; 94664; 94799; 96361; 99284; J0456; J0692; J0696; J1644; J1885; J2405; J2543; J2765; J2920; J2930; J3370; J7030; J7050; U0002

== ENCOUNTER 2021-07-13 18:55 | Emergency (ER) | payer MEDICARE ==
[~2021-07-13] VITALS: Ht 320 cm; Wt 71.7 kg
[2021-07-13] MEDS ORDERED: ALBUTEROL SULF 0.083% NEB SOLN 3 ML NEB NEB STA (19:03)
[2021-07-13] MEDS ORDERED: ONDANSETRON HCL INJ 2MG/ML 2ML 2 MG/ML VIAL IV STA (19:10)
[2021-07-13] MEDS ORDERED: IPRATROPIUM BROMIDE 0.02% 2.5 ML NEB NEB ONE (19:15)
[2021-07-13] MEDS ORDERED: METHYLPREDNISOLONE SOD SUCC 125 MG/2ML VIAL IV ONE (19:15)
[2021-07-13 19:25] LABS: BASOPHILS % 0.1 % (0.0-1.0); HEMOGLOBIN 12.7 g/dL (12.0-16.0); LYMPHOCYTES # (AUTO) 1.7 (1.0-3.2); LYMPHOCYTES % 14.9 % (18.0-39.1); MEAN CORPUSCULAR HEMOGLOBIN 31.3 pg (28-32); MEAN CORPUSCULAR HGB CONC 33.4 g/dL (31-35); MEAN CORPUSCULAR VOLUME 93.6 fL (81-99); MONOCYTES # (AUTO) 0.3 (0.2-0.8); MONOCYTES % 2.6 % (4.4-11.3); PLATELET COUNT 346 x10e3/uL (140-360); RED BLOOD COUNT 4.06 x10e6/uL (3.6-5.1); RED CELL DISTRIBUTION WIDTH 13.4 % (11.7-14.4)
[2021-07-13 19:44] LABS: ALBUMIN 3.2 g/dL (3.5-5.0); ANION GAP 13.5 mmol/L (8-16); CALCIUM 9.4 mg/dL (8.4-10.2); CREATININE, SERUM 0.6 mg/dL (0.57-1.11); POTASSIUM 3.5 mmol/L (3.5-5.1)
[2021-07-13 19:51] LABS: CREATINE KINASE MB 0.6 ng/mL (0-5.0)
[2021-07-13] MEDS ORDERED: ONDANSETRON ODT4 MG PO (21:53)
[2021-07-13 22:11] VITALS: BP 121/74
== END 2021-07-13 22:35 | disposition home or self-care (01) ==
LOC: ER 20:50
DX: J44.1 Chronic obstructive pulmonary disease with (acute) exacerbation (principal); R06.02 Shortness of breath; R11.2 Nausea with vomiting, unspecified; I10 Essential (primary) hypertension; E78.5 Hyperlipidemia, unspecified; K21.9 Gastro-esophageal reflux disease without esophagitis; J45.909 Unspecified asthma, uncomplicated; M54.9 Dorsalgia, unspecified; G89.29 Other chronic pain; H40.9 Unspecified glaucoma; Z20.822 Contact with and (suspected) exposure to COVID-19; R94.31 Abnormal electrocardiogram [ECG] [EKG]; F17.210 Nicotine dependence, cigarettes, uncomplicated
CPT/HCPCS: 36415; 71045; 80053; 82550; 82553; 83880; 84484; 85025; 93005; 94640; 94799; 99284; J2405; J2930; U0002

== ENCOUNTER → 2021-07-31 | Outpatient (CLI) | payer MEDICARE ==
[~2021-07-31] MED LIST changes: +ONDANSETRON ODT4 MG PO
== END ==
LOC: US 09:20
DX: R10.11 Right upper quadrant pain (principal); R11.0 Nausea
CPT/HCPCS: 76705

== ENCOUNTER → 2021-09-29 | Outpatient (CLI) | payer MEDICARE ==
[~2021-09-29] MED LIST changes: +DIATRIZOATE MEGL/DIATRIZOA SOD 30 ML BTL PO ONE; +IOPAMIDOL 370 MG/ML 100 ML INFUS..BTL INJ ONE
[2021-09-29 16:11] LABS: CREATININE, SERUM 0.43 mg/dL (0.57-1.11)
== END ==
LOC: CT 14:51
DX: Z09 Encounter for follow-up examination after completed treatment for conditions other than malignant neoplasm (principal); R91.8 Other nonspecific abnormal finding of lung field; R10.30 Lower abdominal pain, unspecified; K76.0 Fatty (change of) liver, not elsewhere classified; K57.90 Diverticulosis of intestine, part unspecified, without perforation or abscess without bleeding; I71.4 Abdominal aortic aneurysm, without rupture
CPT/HCPCS: 36415; 71260; 74177; 82565; 84520; Q9967

== ENCOUNTER 2022-02-05 08:45 | Inpatient (IN) | payer MEDICARE ==
[~2022-02-05] VITALS: Ht 154.9 cm; Wt 71.7 kg
[~2022-02-05 08:45] MED LIST changes: -DIATRIZOATE MEGL/DIATRIZOA SOD 30 ML BTL PO ONE; -IOPAMIDOL 370 MG/ML 100 ML INFUS..BTL INJ ONE
[2022-02-05] MEDS ORDERED: LEVOFLOXACIN 750MG/D5W 150ML 150 ML IV STA (08:53)
[2022-02-05] MEDS ORDERED: ALBUTEROL/IPRATROPIUM 3 ML NEB NEB ONE (09:00)
[2022-02-05] MEDS ORDERED: SODIUM CHLORIDE FLUSH 10 ML SYR IV PRN (09:00)
[2022-02-05] MEDS ORDERED: METHYLPREDNISOLONE SOD SUCC 125 MG/2ML VIAL IV ONE (09:00)
[2022-02-05 09:14] LABS: BASOPHILS % 0.2 % (0.0-1.0); EOSINOPHILS # (AUTO) 0.1 (0.0-0.4); EOSINOPHILS % 0.9 % (0.0-6.0); HEMATOCRIT 43.4 % (34.2-44.1); HEMOGLOBIN 13.6 g/dL (12.0-16.0); LYMPHOCYTES # (AUTO) 2.6 (1.0-3.2); MEAN CORPUSCULAR HEMOGLOBIN 32.5 pg (28-32); MEAN CORPUSCULAR HGB CONC 31.3 g/dL (31-35); MEAN CORPUSCULAR VOLUME 103.8 fL (81-99); MONOCYTES # (AUTO) 0.8 (0.2-0.8); MONOCYTES % 8.2 % (4.4-11.3); NEUTROPHILS # (AUTO) 6.7 (2.1-6.9); NEUTROPHILS % 65.2 % (38.7-80.0); PLATELET COUNT 330 x10e3/uL (140-360); RED BLOOD COUNT 4.18 x10e6/uL (3.6-5.1); RED CELL DISTRIBUTION WIDTH 14.3 % (11.7-14.4)
[2022-02-05 09:20] LABS: INR 0.83; PROTHROMBIN TIME 12.2 seconds (11.9-14.5)
[2022-02-05 09:21] LABS: PARTIAL THROMBOPLASTIN TIME 27.4 seconds (23.8-35.5)
[2022-02-05 09:44] LABS: ALANINE AMINOTRANSFERASE 16 IU/L (0-55); ALBUMIN 3.9 g/dL (3.5-5.0); ALBUMIN/GLOBULIN RATIO 1.6 (0.8-2.0); ALKALINE PHOSPHATASE 78 IU/L (40-150); BLOOD UREA NITROGEN 6 mg/dL (7-26); BUN/CREATININE RATIO 9 (6-25); CALCIUM 9.4 mg/dL (8.4-10.2); CARBON DIOXIDE 27 mmol/L (22-29); CHLORIDE 102 mmol/L (98-107); CREATINE KINASE 62 IU/L (29-168); CREATININE, SERUM 0.68 mg/dL (0.57-1.11); GLUCOSE 128 mg/dL (74-118); SODIUM 141 mmol/L (136-145)
[2022-02-05] MEDS ORDERED: SODIUM CHLORIDE FLUSH 10 ML SYR INJ PRN (11:45)
[2022-02-05] MEDS ORDERED: ALBUTEROL SULF 0.083% NEB SOLN 3 ML NEB NEB STA (12:17)
[2022-02-05] MEDS: KETOROLAC TROMETHAMINE 30 MG/ML VIAL IV STA ×2 (13:37→15:24)
[2022-02-05 14:22] VITALS: BP 135/61
[2022-02-05 15:32] VITALS: BP 135/61
[2022-02-05 15:40] VITALS: BP 135/61
[2022-02-05 15:49] VITALS: BP 117/66
[2022-02-05] MEDS: HYDROCODONE/APAP 10MG-325MG TAB PO PRN ×2 (16:00→21:48)
[2022-02-05] MEDS: PANTOPRAZOLE SOD 40 MG TABEC PO SCH (16:00)
[2022-02-05] MEDS: LISINOPRIL 10 MG TAB PO SCH (16:01)
[2022-02-05] MEDS: GABAPENTIN 300 MG CAP PO SCH (16:01)
[2022-02-05] MEDS: LEVOFLOXACIN 500MG/D5W 100ML 100 ML IV SCH (16:01)
[2022-02-05] MEDS: DICYCLOMINE HCL 20 MG TAB PO SCH ×2 (16:34→20:41)
[2022-02-05] MEDS: BUDESONIDE/FORMOTEROL 160/4.5MCG INHALER INH SCH (18:50)
[2022-02-05] MEDS: ALBUTEROL SULF 0.083% NEB SOLN 3 ML NEB NEB PRN ×2 (18:50→23:05)
[2022-02-05] MEDS: IPRATROPIUM/ALBUTEROL SULFATE 4 GM INH INH SCH (18:50)
[2022-02-05 20:00] VITALS: BP 117/66
[2022-02-05] MEDS: SIMVASTATIN 20 MG TAB PO SCH (20:41)
[2022-02-05] MEDS: METHYLPREDNISOLONE SOD SUCC 125 MG/2ML VIAL IV SCH (20:42)
[2022-02-05] MEDS: LATANOPROST(OPTH) 2.5 ML BTL OP SCH (20:42)
[2022-02-05 20:45] VITALS: BP 146/72
[2022-02-05] MEDS: BUDESONIDE 0.5MG/2 ML NEB INH SCH (23:05)
[2022-02-06] VITALS (7 sets, daily range): BP systolic 110–152; BP diastolic 56–70
[2022-02-06] MEDS: ONDANSETRON HCL 4 MG ORAL DISINTEGRATING TAB PO PRN ×2 (01:24→08:55)
[2022-02-06] MEDS: HYDROCODONE/APAP 10MG-325MG TAB PO PRN ×2 (05:20→14:51)
[2022-02-06] MEDS: METHYLPREDNISOLONE SOD SUCC 125 MG/2ML VIAL IV SCH ×3 (05:44→20:54)
[2022-02-06] MEDS: BUDESONIDE 0.5MG/2 ML NEB INH SCH ×2 (06:10→20:00)
[2022-02-06] MEDS: ALBUTEROL SULF 0.083% NEB SOLN 3 ML NEB NEB PRN ×2 (06:10→20:00)
[2022-02-06] MEDS: BUDESONIDE/FORMOTEROL 160/4.5MCG INHALER INH SCH ×2 (06:33→19:00)
[2022-02-06] MEDS: IPRATROPIUM/ALBUTEROL SULFATE 4 GM INH INH SCH ×2 (06:33→19:00)
[2022-02-06 06:46] LABS: BASOPHILS % 0.1 % (0.0-1.0); HEMATOCRIT 40.2 % (34.2-44.1); HEMOGLOBIN 12.7 g/dL (12.0-16.0); LYMPHOCYTES # (AUTO) 1.4 (1.0-3.2); LYMPHOCYTES % 12.3 % (18.0-39.1); MEAN CORPUSCULAR HEMOGLOBIN 32.8 pg (28-32); MEAN CORPUSCULAR HGB CONC 31.6 g/dL (31-35); MEAN CORPUSCULAR VOLUME 103.9 fL (81-99); MONOCYTES # (AUTO) 0.5 (0.2-0.8); MONOCYTES % 4.2 % (4.4-11.3); NEUTROPHILS # (AUTO) 9.3 (2.1-6.9); NEUTROPHILS % 82.8 % (38.7-80.0); PLATELET COUNT 345 x10e3/uL (140-360); RED BLOOD COUNT 3.87 x10e6/uL (3.6-5.1); RED CELL DISTRIBUTION WIDTH 14.3 % (11.7-14.4)
[2022-02-06 07:52] LABS: ALBUMIN 3.6 g/dL (3.5-5.0); ALBUMIN/GLOBULIN RATIO 1.1 (0.8-2.0); ANION GAP 18.3 mmol/L (8-16); CALCIUM 9.9 mg/dL (8.4-10.2); CREATININE, SERUM 0.69 mg/dL (0.57-1.11); POTASSIUM 4.3 mmol/L (3.5-5.1)
[2022-02-06] MEDS: GABAPENTIN 300 MG CAP PO SCH ×2 (08:18→16:42)
[2022-02-06] MEDS: DICYCLOMINE HCL 20 MG TAB PO SCH ×4 (08:19→20:54)
[2022-02-06] MEDS: PANTOPRAZOLE SOD 40 MG TABEC PO SCH ×2 (08:19→16:42)
[2022-02-06] MEDS: LISINOPRIL 10 MG TAB PO SCH ×2 (08:19→16:43)
[2022-02-06] MEDS: ONDANSETRON HCL INJ 2MG/ML 2ML 2 MG/ML VIAL IV PRN ×2 (11:00→16:31)
[2022-02-06] MEDS: LEVOFLOXACIN 500MG/D5W 100ML 100 ML IV SCH (14:40)
[2022-02-06] MEDS: ALBUTEROL/IPRATROPIUM 3 ML NEB NEB SCH (19:45)
[2022-02-06] MEDS: SIMVASTATIN 20 MG TAB PO SCH (20:54)
[2022-02-06] MEDS: LATANOPROST(OPTH) 2.5 ML BTL OP SCH (20:55)
[2022-02-07] VITALS: BP 122/67
[2022-02-07] MEDS: ALBUTEROL/IPRATROPIUM 3 ML NEB NEB SCH ×2 (01:00→07:00)
[2022-02-07 04:00] VITALS: BP 126/68
[2022-02-07] MEDS: METHYLPREDNISOLONE SOD SUCC 125 MG/2ML VIAL IV SCH (05:42)
[2022-02-07] MEDS: ONDANSETRON HCL INJ 2MG/ML 2ML 2 MG/ML VIAL IV PRN (05:57)
[2022-02-07] MEDS: HYDROCODONE/APAP 10MG-325MG TAB PO PRN (05:58)
[2022-02-07] MEDS: BUDESONIDE 0.5MG/2 ML NEB INH SCH (07:00)
[2022-02-07] MEDS: BUDESONIDE/FORMOTEROL 160/4.5MCG INHALER INH SCH (07:48)
[2022-02-07] MEDS: IPRATROPIUM/ALBUTEROL SULFATE 4 GM INH INH SCH (07:48)
[2022-02-07 08:10] VITALS: BP 111/75
[2022-02-07 08:30] VITALS: BP 111/75
[2022-02-07] MEDS: DICYCLOMINE HCL 20 MG TAB PO SCH (08:39)
[2022-02-07] MEDS: GABAPENTIN 300 MG CAP PO SCH (08:39)
[2022-02-07] MEDS: LISINOPRIL 10 MG TAB PO SCH (08:39)
[2022-02-07] MEDS: PANTOPRAZOLE SOD 40 MG TABEC PO SCH (08:39)
[2022-02-07] MEDS ORDERED: PREDNISONE10 MG PO (11:00)
[2022-02-07] MEDS ORDERED: LEVOFLOXACIN250 MG PO (11:00)
[2022-02-07] MEDS ORDERED: HYDROCODONE/APAP 5MG-325MG TAB PO ONE (11:00)
[2022-02-07 12:09] VITALS: BP 113/69
[2022-02-07] MEDS ORDERED: METHYLPREDNISOLONE SOD SUCC 125 MG/2ML VIAL IV SCH (14:00)
[2022-02-07] MEDS ORDERED: HEPARIN SOD (PORCINE) 5,000 UNIT/ML VIAL SC SCH (21:00)
== END 2022-02-07 12:26 | disposition home or self-care (01) | DRG 190 ==
LOC: ER 08:53 → ERHOLD 11:36 → MED/SURG2 14:01
DX: J44.1 Chronic obstructive pulmonary disease with (acute) exacerbation (principal); J96.21 Acute and chronic respiratory failure with hypoxia; J39.8 Other specified diseases of upper respiratory tract; Z99.81 Dependence on supplemental oxygen; I10 Essential (primary) hypertension; I25.10 Atherosclerotic heart disease of native coronary artery without angina pectoris; K21.9 Gastro-esophageal reflux disease without esophagitis; E78.5 Hyperlipidemia, unspecified; G89.4 Chronic pain syndrome; F17.210 Nicotine dependence, cigarettes, uncomplicated; M47.812 Spondylosis without myelopathy or radiculopathy, cervical region; Z20.822 Contact with and (suspected) exposure to COVID-19
CPT/HCPCS: 36415; 70490; 71045; 80053; 82550; 82553; 83880; 84484; 85025; 85610; 85730; 87040; 87400; 93005; 94640; 94644; 94664; 94760; 94799; 99285; J1885; J1956; J2405; J2930; Q0162

== ENCOUNTER 2022-03-07 08:19 | Inpatient (IN) | payer MEDICARE ==
[~2022-03-07] VITALS: Ht 154.9 cm; Wt 71.7 kg
[2022-03-07] VITALS (8 sets, daily range): BP systolic 122–166; BP diastolic 58–97
[~2022-03-07 08:19] MED LIST changes: +LEVOFLOXACIN250 MG PO; +PREDNISONE10 MG PO
[2022-03-07] MEDS ORDERED: METHYLPREDNISOLONE SOD SUCC 125 MG/2ML VIAL IV STA (08:35)
[2022-03-07] MEDS ORDERED: SODIUM CHLORIDE 0.9% 1000ML 1,000 ML IV STA ×2 (08:35→10:00)
[2022-03-07 08:54] LABS: BASOPHILS % 0.3 % (0.0-1.0); EOSINOPHILS % 0.3 % (0.0-6.0); HEMATOCRIT 43.9 % (34.2-44.1); HEMOGLOBIN 13.8 g/dL (12.0-16.0); LYMPHOCYTES # (AUTO) 3.8 (1.0-3.2); MEAN CORPUSCULAR HEMOGLOBIN 32.2 pg (28-32); MEAN CORPUSCULAR HGB CONC 31.4 g/dL (31-35); MEAN CORPUSCULAR VOLUME 102.6 fL (81-99); MONOCYTES # (AUTO) 1.1 (0.2-0.8); MONOCYTES % 9.3 % (4.4-11.3); NEUTROPHILS # (AUTO) 6.4 (2.1-6.9); NEUTROPHILS % 55.9 % (38.7-80.0); PLATELET COUNT 383 x10e3/uL (140-360); RED BLOOD COUNT 4.28 x10e6/uL (3.6-5.1)
[2022-03-07 09:08] LABS: INR 0.8; PROTHROMBIN TIME 11.8 seconds (11.9-14.5)
[2022-03-07 09:09] LABS: PARTIAL THROMBOPLASTIN TIME 26.7 seconds (23.8-35.5)
[2022-03-07 09:17] LABS: B-TYPE NATRIURETIC PEPTIDE2 64.7 pg/mL (0-100)
[2022-03-07] MEDS ORDERED: ALBUTEROL/IPRATROPIUM 3 ML NEB NEB ONE ×2 (09:30→12:30)
[2022-03-07 10:04] LABS: ABG PCO2 47 mmHg (35-45); ABG PH 7.39 (7.35-7.45)
[2022-03-07 10:05] LABS: ABG HCO3 29 mmol/L (22-26); ABG PO2 62 mmHg (80-105); ABG TCO2 30
[2022-03-07 10:09] LABS: ALBUMIN 3.9 g/dL (3.5-5.0); ALBUMIN/GLOBULIN RATIO 1.4 (0.8-2.0); ANION GAP 16.6 mmol/L (8-16); CALCIUM 9.2 mg/dL (8.4-10.2); CREATININE, SERUM 0.7 mg/dL (0.57-1.11); POTASSIUM 3.6 mmol/L (3.5-5.1)
[2022-03-07 10:15] LABS: CREATINE KINASE MB 2.4 ng/mL (0-5.0)
[2022-03-07] MEDS: CEFEPIME 2 GM in SODIUM CHLORIDE 0.9% 100 ML IV SCH ×2 (10:16→21:11)
[2022-03-07] MEDS: ALBUTEROL SULF 0.083% NEB SOLN 3 ML NEB NEB SCH ×4 (11:20→22:20)
[2022-03-07] MEDS ORDERED: KETOROLAC TROMETHAMINE 30 MG/ML VIAL IV STA (12:21)
[2022-03-07] MEDS: SODIUM CHLORIDE 0.9% 1000ML 1,000 ML IV SCH ×2 (12:26→16:23)
[2022-03-07] MEDS ORDERED: Morphine 2mg Syringe 2 MG/ML SYR IV PRN (13:00)
[2022-03-07] MEDS: BENZONATATE 100 MG CAP PO SCH ×2 (14:41→21:11)
[2022-03-07] MEDS ORDERED: LOSARTAN POTASS25 MG PO (15:07)
[2022-03-07] MEDS: METHYLPREDNISOLONE SOD SUCC 125 MG/2ML VIAL IV SCH ×2 (15:21→21:11)
[2022-03-07] MEDS: IPRATROPIUM BROMIDE 0.02% 2.5 ML NEB NEB SCH ×3 (15:25→22:20)
[2022-03-07] MEDS: GUAIFENESIN 600MG/DEXTROMETHORPHAN 30MG TABSR PO SCH (16:13)
[2022-03-07 18:07] LABS: CREATINE KINASE MB 8.3 ng/mL (0-5.0)
[2022-03-07] MEDS: BUDESONIDE 0.5MG/2 ML NEB INH SCH (18:07)
[2022-03-07] MEDS: GABAPENTIN 300 MG CAP PO SCH (18:27)
[2022-03-07] MEDS: PANTOPRAZOLE SOD 40 MG TABEC PO SCH (18:27)
[2022-03-07] MEDS: NICOTINE 21 MG/EA PATCH TOP SCH (18:28)
[2022-03-07] MEDS: TIZANIDINE HCL 4 MG TAB PO SCH (18:31)
[2022-03-07] MEDS: LATANOPROST(OPTH) 2.5 ML BTL OP SCH (21:00)
[2022-03-07] MEDS: CRESTOR 10MG PO SCH (21:10)
[2022-03-07] MEDS: HYDROCODONE/APAP 10MG-325MG TAB PO PRN (21:12)
[2022-03-08] VITALS (12 sets, daily range): BP systolic 94–164; BP diastolic 53–84
[2022-03-08] MEDS: IPRATROPIUM BROMIDE 0.02% 2.5 ML NEB NEB SCH ×2 (02:35→07:05)
[2022-03-08] MEDS: ALBUTEROL SULF 0.083% NEB SOLN 3 ML NEB NEB SCH ×2 (02:35→07:05)
[2022-03-08] MEDS: HYDROCODONE/APAP 10MG-325MG TAB PO PRN (04:13)
[2022-03-08] MEDS: METHYLPREDNISOLONE SOD SUCC 125 MG/2ML VIAL IV SCH (06:14)
[2022-03-08 06:59] LABS: BASOPHILS % 0.1 % (0.0-1.0); HEMATOCRIT 38.5 % (34.2-44.1); HEMOGLOBIN 12.3 g/dL (12.0-16.0); LYMPHOCYTES # (AUTO) 1.2 (1.0-3.2); LYMPHOCYTES % 15.7 % (18.0-39.1); MEAN CORPUSCULAR HEMOGLOBIN 32.7 pg (28-32); MEAN CORPUSCULAR HGB CONC 31.9 g/dL (31-35); MEAN CORPUSCULAR VOLUME 102.4 fL (81-99); MONOCYTES # (AUTO) 0.6 (0.2-0.8); MONOCYTES % 8.3 % (4.4-11.3); NEUTROPHILS # (AUTO) 5.6 (2.1-6.9); NEUTROPHILS % 74.7 % (38.7-80.0); PLATELET COUNT 278 x10e3/uL (140-360); RED BLOOD COUNT 3.76 x10e6/uL (3.6-5.1); RED CELL DISTRIBUTION WIDTH 13.8 % (11.7-14.4)
[2022-03-08] MEDS: BUDESONIDE 0.5MG/2 ML NEB INH SCH ×2 (07:05→21:51)
[2022-03-08 07:36] LABS: ALBUMIN 3.4 g/dL (3.5-5.0); ALBUMIN/GLOBULIN RATIO 1.3 (0.8-2.0); ANION GAP 16.1 mmol/L (8-16); CREATININE, SERUM 0.66 mg/dL (0.57-1.11); POTASSIUM 4.1 mmol/L (3.5-5.1)
[2022-03-08 07:42] LABS: CREATINE KINASE MB 6.8 ng/mL (0-5.0)
[2022-03-08] MEDS: NICOTINE 21 MG/EA PATCH TOP SCH (08:26)
[2022-03-08] MEDS: BENZONATATE 100 MG CAP PO SCH ×3 (08:26→21:29)
[2022-03-08] MEDS: GUAIFENESIN 600MG/DEXTROMETHORPHAN 30MG TABSR PO SCH ×2 (08:27→16:45)
[2022-03-08] MEDS: LOSARTAN POTASSIUM 25 MG TAB PO SCH (08:27)
[2022-03-08] MEDS: GABAPENTIN 300 MG CAP PO SCH ×2 (08:27→16:45)
[2022-03-08] MEDS: PANTOPRAZOLE SOD 40 MG TABEC PO SCH ×2 (08:28→16:45)
[2022-03-08] MEDS: TIZANIDINE HCL 4 MG TAB PO SCH ×2 (08:30→16:47)
[2022-03-08] MEDS ORDERED: ALBUTEROL/IPRATROPIUM 3 ML NEB NEB PRN (08:45)
[2022-03-08] MEDS ORDERED: ALBUTEROL SULFATE HFA 8GM INHALATION AEROSOL INH PRN (08:45)
[2022-03-08] MEDS ORDERED: HYDRALAZINE HCL 20 MG/ML VIAL IV PRN (08:45)
[2022-03-08] MEDS ORDERED: MELATONIN 5 MG TABLET PO PRN (09:00)
[2022-03-08] MEDS: HYDROCODONE/APAP 5MG-325MG TAB PO PRN ×2 (10:13→22:42)
[2022-03-08] MEDS: SENNA-S TABLET PO SCH ×2 (11:38→16:45)
[2022-03-08] MEDS: CEFEPIME 2 GM in SODIUM CHLORIDE 0.9% 100 ML IV SCH ×2 (11:38→21:31)
[2022-03-08] MEDS: ALBUTEROL/IPRATROPIUM 3 ML NEB NEB SCH ×2 (13:00→18:55)
[2022-03-08] MEDS: METHYLPREDNISOLONE SOD SUCC 40 MG/ML VIAL 1ML IV SCH ×2 (14:22→21:31)
[2022-03-08 15:29] LABS: CREATINE KINASE MB 5.8 ng/mL (0-5.0)
[2022-03-08] MEDS: ENOXAPARIN SOD INJ 40 MG/0.4 ML SYR SC SCH (16:45)
[2022-03-08] MEDS: CRESTOR 10MG PO SCH (21:29)
[2022-03-08] MEDS: LATANOPROST(OPTH) 2.5 ML BTL OP SCH (21:29)
[2022-03-09] VITALS (14 sets, daily range): BP systolic 100–170; BP diastolic 58–139
[2022-03-09] MEDS: ALBUTEROL/IPRATROPIUM 3 ML NEB NEB SCH ×4 (01:00→18:45)
[2022-03-09] MEDS: METHYLPREDNISOLONE SOD SUCC 40 MG/ML VIAL 1ML IV SCH ×4 (05:37→23:46)
[2022-03-09] MEDS: BUDESONIDE 0.5MG/2 ML NEB INH SCH ×2 (06:55→18:45)
[2022-03-09] MEDS: HYDROCODONE/APAP 5MG-325MG TAB PO PRN ×3 (07:56→23:53)
[2022-03-09] MEDS: GABAPENTIN 300 MG CAP PO SCH ×2 (09:23→16:06)
[2022-03-09] MEDS: SENNA-S TABLET PO SCH ×2 (09:23→16:06)
[2022-03-09] MEDS: NICOTINE 21 MG/EA PATCH TOP SCH (09:23)
[2022-03-09] MEDS: PANTOPRAZOLE SOD 40 MG TABEC PO SCH ×2 (09:23→16:06)
[2022-03-09] MEDS: GUAIFENESIN 600MG/DEXTROMETHORPHAN 30MG TABSR PO SCH ×2 (09:24→16:05)
[2022-03-09] MEDS: BENZONATATE 100 MG CAP PO SCH ×3 (09:24→21:26)
[2022-03-09] MEDS: TIZANIDINE HCL 4 MG TAB PO SCH ×2 (09:24→16:06)
[2022-03-09] MEDS: LOSARTAN POTASSIUM 25 MG TAB PO SCH (09:25)
[2022-03-09] MEDS: CEFEPIME 2 GM in SODIUM CHLORIDE 0.9% 100 ML IV SCH ×2 (11:15→21:26)
[2022-03-09] MEDS: ACETYLCYSTEINE 200 MG/ML 4ML VIAL PO SCH ×2 (13:35→18:45)
[2022-03-09] MEDS: ENOXAPARIN SOD INJ 40 MG/0.4 ML SYR SC SCH (16:06)
[2022-03-09] MEDS: CRESTOR 10MG PO SCH (21:26)
[2022-03-09] MEDS: LATANOPROST(OPTH) 2.5 ML BTL OP SCH (21:38)
[2022-03-10] VITALS (14 sets, daily range): BP systolic 111–177; BP diastolic 58–85
[2022-03-10] MEDS: ALBUTEROL/IPRATROPIUM 3 ML NEB NEB SCH ×4 (02:15→19:35)
[2022-03-10] MEDS: METHYLPREDNISOLONE SOD SUCC 40 MG/ML VIAL 1ML IV SCH ×3 (05:31→17:39)
[2022-03-10] MEDS: ACETYLCYSTEINE 200 MG/ML 4ML VIAL PO SCH ×2 (07:10→20:23)
[2022-03-10] MEDS: BUDESONIDE 0.5MG/2 ML NEB INH SCH ×2 (07:45→19:35)
[2022-03-10] MEDS: HYDROCODONE/APAP 5MG-325MG TAB PO PRN ×2 (08:24→15:44)
[2022-03-10] MEDS: LOSARTAN POTASSIUM 25 MG TAB PO SCH (08:28)
[2022-03-10] MEDS: SENNA-S TABLET PO SCH ×2 (08:29→17:00)
[2022-03-10] MEDS: GABAPENTIN 300 MG CAP PO SCH ×2 (08:29→17:32)
[2022-03-10] MEDS: PANTOPRAZOLE SOD 40 MG TABEC PO SCH ×2 (08:29→17:32)
[2022-03-10] MEDS: BENZONATATE 100 MG CAP PO SCH ×3 (08:29→21:21)
[2022-03-10] MEDS: NICOTINE 21 MG/EA PATCH TOP SCH (08:30)
[2022-03-10] MEDS: TIZANIDINE HCL 4 MG TAB PO SCH ×2 (08:30→17:32)
[2022-03-10] MEDS: GUAIFENESIN 600MG/DEXTROMETHORPHAN 30MG TABSR PO SCH ×2 (08:30→17:33)
[2022-03-10] MEDS: CEFEPIME 2 GM in SODIUM CHLORIDE 0.9% 100 ML IV SCH ×2 (10:00→22:23)
[2022-03-10] MEDS: NYSTATIN SUSPENSION 5 ML UDC PO SCH ×2 (15:48→21:20)
[2022-03-10] MEDS: ENOXAPARIN SOD INJ 40 MG/0.4 ML SYR SC SCH (17:32)
[2022-03-10] MEDS: FLUCONAZOLE 200 MG/100 ML 100 ML IV SCH (17:40)
[2022-03-10] MEDS: ACETYLCYSTEINE 200 MG/ML 4ML VIAL INH SCH (21:00)
[2022-03-10] MEDS: CRESTOR 10MG PO SCH (21:20)
[2022-03-10] MEDS: LATANOPROST(OPTH) 2.5 ML BTL OP SCH (21:22)
[2022-03-11] VITALS (15 sets, daily range): BP systolic 97–192; BP diastolic 63–117
[2022-03-11] MEDS: ALBUTEROL/IPRATROPIUM 3 ML NEB NEB SCH ×4 (00:50→19:20)
[2022-03-11] MEDS: HYDROCODONE/APAP 5MG-325MG TAB PO PRN ×4 (01:54→22:33)
[2022-03-11] MEDS: METHYLPREDNISOLONE SOD SUCC 40 MG/ML VIAL 1ML IV SCH ×5 (02:06→23:52)
[2022-03-11 06:09] LABS: BASOPHILS % 0.1 % (0.0-1.0); HEMATOCRIT 39.9 % (34.2-44.1); HEMOGLOBIN 12.5 g/dL (12.0-16.0); LYMPHOCYTES # (AUTO) 1.6 (1.0-3.2); LYMPHOCYTES % 15.8 % (18.0-39.1); MEAN CORPUSCULAR HEMOGLOBIN 32.2 pg (28-32); MEAN CORPUSCULAR HGB CONC 31.3 g/dL (31-35); MEAN CORPUSCULAR VOLUME 102.8 fL (81-99); MONOCYTES # (AUTO) 0.5 (0.2-0.8); MONOCYTES % 4.7 % (4.4-11.3); NEUTROPHILS # (AUTO) 7.7 (2.1-6.9); NEUTROPHILS % 77.7 % (38.7-80.0); PLATELET COUNT 239 x10e3/uL (140-360); RED BLOOD COUNT 3.88 x10e6/uL (3.6-5.1); RED CELL DISTRIBUTION WIDTH 13.2 % (11.7-14.4)
[2022-03-11 06:29] LABS: ANION GAP 14.2 mmol/L (8-16); CALCIUM 8.7 mg/dL (8.4-10.2); CREATININE, SERUM 0.6 mg/dL (0.57-1.11); POTASSIUM 4.2 mmol/L (3.5-5.1)
[2022-03-11] MEDS: ACETYLCYSTEINE 200 MG/ML 4ML VIAL INH SCH ×2 (07:40→19:20)
[2022-03-11] MEDS: BUDESONIDE 0.5MG/2 ML NEB INH SCH ×2 (07:55→19:20)
[2022-03-11] MEDS: SENNA-S TABLET PO SCH ×2 (09:00→17:00)
[2022-03-11] MEDS: PANTOPRAZOLE SOD 40 MG TABEC PO SCH ×2 (10:28→17:56)
[2022-03-11] MEDS: GUAIFENESIN 600MG/DEXTROMETHORPHAN 30MG TABSR PO SCH ×2 (10:28→17:55)
[2022-03-11] MEDS: NYSTATIN SUSPENSION 5 ML UDC PO SCH ×3 (10:28→22:32)
[2022-03-11] MEDS: GABAPENTIN 300 MG CAP PO SCH ×2 (10:29→17:56)
[2022-03-11] MEDS: TIZANIDINE HCL 4 MG TAB PO SCH ×2 (10:30→17:56)
[2022-03-11] MEDS: BENZONATATE 100 MG CAP PO SCH ×3 (10:30→21:00)
[2022-03-11] MEDS: NICOTINE 21 MG/EA PATCH TOP SCH (10:31)
[2022-03-11] MEDS: LOSARTAN POTASSIUM 25 MG TAB PO SCH (10:32)
[2022-03-11] MEDS: CEFEPIME 2 GM in SODIUM CHLORIDE 0.9% 100 ML IV SCH ×2 (11:03→22:32)
[2022-03-11] MEDS ORDERED: GADOBENATE DIMEGLUMINE 1 ML IV ONE (11:36)
[2022-03-11] MEDS: FLUCONAZOLE 200 MG/100 ML 100 ML IV SCH (12:59)
[2022-03-11] MEDS: ENOXAPARIN SOD INJ 40 MG/0.4 ML SYR SC SCH (17:56)
[2022-03-11] MEDS: LATANOPROST(OPTH) 2.5 ML BTL OP SCH (20:55)
[2022-03-11] MEDS: CRESTOR 10MG PO SCH (22:32)
[2022-03-12] VITALS (17 sets, daily range): BP systolic 107–172; BP diastolic 54–97
[2022-03-12] MEDS: HYDROCODONE/APAP 5MG-325MG TAB PO PRN ×3 (02:37→21:15)
[2022-03-12] MEDS: ALBUTEROL/IPRATROPIUM 3 ML NEB NEB SCH ×4 (02:40→19:35)
[2022-03-12] MEDS: METHYLPREDNISOLONE SOD SUCC 40 MG/ML VIAL 1ML IV SCH ×2 (05:54→13:18)
[2022-03-12] MEDS: BUDESONIDE 0.5MG/2 ML NEB INH SCH ×2 (07:13→19:35)
[2022-03-12] MEDS: ACETYLCYSTEINE 200 MG/ML 4ML VIAL INH SCH ×2 (07:13→19:35)
[2022-03-12] MEDS: LOSARTAN POTASSIUM 25 MG TAB PO SCH (09:07)
[2022-03-12] MEDS: BENZONATATE 100 MG CAP PO SCH ×3 (09:08→21:15)
[2022-03-12] MEDS: GABAPENTIN 300 MG CAP PO SCH ×2 (09:08→17:50)
[2022-03-12] MEDS: SENNA-S TABLET PO SCH ×2 (09:08→17:50)
[2022-03-12] MEDS: NYSTATIN SUSPENSION 5 ML UDC PO SCH ×3 (09:08→21:15)
[2022-03-12] MEDS: TIZANIDINE HCL 4 MG TAB PO SCH ×2 (09:08→17:50)
[2022-03-12] MEDS: PANTOPRAZOLE SOD 40 MG TABEC PO SCH ×2 (09:08→15:23)
[2022-03-12] MEDS: GUAIFENESIN 600MG/DEXTROMETHORPHAN 30MG TABSR PO SCH ×2 (09:09→17:00)
[2022-03-12] MEDS: NICOTINE 21 MG/EA PATCH TOP SCH (09:09)
[2022-03-12] MEDS: CEFEPIME 2 GM in SODIUM CHLORIDE 0.9% 100 ML IV SCH ×2 (11:01→21:53)
[2022-03-12] MEDS: FLUCONAZOLE 200 MG/100 ML 100 ML IV SCH (13:19)
[2022-03-12] MEDS: ENOXAPARIN SOD INJ 40 MG/0.4 ML SYR SC SCH (17:50)
[2022-03-12] MEDS: LATANOPROST(OPTH) 2.5 ML BTL OP SCH (21:15)
[2022-03-12] MEDS: CRESTOR 10MG PO SCH (21:15)
[2022-03-13] VITALS (11 sets, daily range): BP systolic 80–166; BP diastolic 51–87
[2022-03-13] MEDS: ALBUTEROL/IPRATROPIUM 3 ML NEB NEB SCH ×2 (01:55→07:25)
[2022-03-13] MEDS: HYDROCODONE/APAP 5MG-325MG TAB PO PRN (04:52)
[2022-03-13] MEDS: BUDESONIDE 0.5MG/2 ML NEB INH SCH (07:25)
[2022-03-13] MEDS: ACETYLCYSTEINE 200 MG/ML 4ML VIAL INH SCH (07:25)
[2022-03-13] MEDS: LOSARTAN POTASSIUM 25 MG TAB PO SCH (07:40)
[2022-03-13] MEDS: NYSTATIN SUSPENSION 5 ML UDC PO SCH (07:40)
[2022-03-13] MEDS: GABAPENTIN 300 MG CAP PO SCH (07:40)
[2022-03-13] MEDS: PANTOPRAZOLE SOD 40 MG TABEC PO SCH (07:43)
[2022-03-13] MEDS: NICOTINE 21 MG/EA PATCH TOP SCH (07:43)
[2022-03-13] MEDS: TIZANIDINE HCL 4 MG TAB PO SCH (07:44)
[2022-03-13] MEDS: SENNA-S TABLET PO SCH (07:45)
[2022-03-13] MEDS: CEFEPIME 2 GM in SODIUM CHLORIDE 0.9% 100 ML IV SCH (07:45)
[2022-03-13] MEDS: BENZONATATE 100 MG CAP PO SCH (07:45)
[2022-03-13] MEDS ORDERED: PREDNISONE 20 MG TAB PO SCH (09:00)
== END 2022-03-13 10:59 | disposition home health service (06) | DRG 871 ==
LOC: ER 08:26 → ERHOLD 10:47 → ICU 14:22
PROC: 3E03329 Introduction of Other Anti-infective into Peripheral Vein, Percutaneous Approach (ICD-10-PCS; 2022-03-07)
PROC: 02HV33Z Insertion of Infusion Device into Superior Vena Cava, Percutaneous Approach (ICD-10-PCS; principal; 2022-03-10)
PROC: 5A09357 Assistance with Respiratory Ventilation, Less than 24 Consecutive Hours, Continuous Positive Airway Pressure (ICD-10-PCS; 2022-03-12)
DX: A41.9 Sepsis, unspecified organism (principal); J18.0 Bronchopneumonia, unspecified organism; J96.01 Acute respiratory failure with hypoxia; J44.1 Chronic obstructive pulmonary disease with (acute) exacerbation; J44.0 Chronic obstructive pulmonary disease with (acute) lower respiratory infection; E87.20 Acidosis, unspecified; J96.12 Chronic respiratory failure with hypercapnia; R65.20 Severe sepsis without septic shock; J20.9 Acute bronchitis, unspecified; F17.210 Nicotine dependence, cigarettes, uncomplicated; I25.10 Atherosclerotic heart disease of native coronary artery without angina pectoris; I10 Essential (primary) hypertension; Z20.822 Contact with and (suspected) exposure to COVID-19
CPT/HCPCS: 36415; 36569; 36600; 71045; 71250; 72197; 80048; 80053; 82550; 82553; 82805; 83605; 83735; 83880; 84484; 85025; 85610; 85730; 87040; 87070; 87205; 87400; 93005; 94660; 94760; 94799; 99251; 99284; J0360; J0456; J0692; J1450; J1650; J2270; J2920; J2930; J7030; J7050; J7512

== ENCOUNTER 2022-08-06 18:52 | Inpatient (IN) | payer MEDICARE ==
[~2022-08-06] VITALS: Ht 167.6 cm; Wt 65.8 kg
[~2022-08-06 18:52] MED LIST changes: +LOSARTAN POTASS25 MG PO
[2022-08-06] MEDS ORDERED: ALBUTEROL SULF 0.083% NEB SOLN 3 ML NEB NEB STA (18:54)
[2022-08-06] MEDS ORDERED: IPRATROPIUM BROMIDE 0.02% 2.5 ML NEB NEB ONE (19:00)
[2022-08-06] MEDS ORDERED: METHYLPREDNISOLONE SOD SUCC 125 MG/2ML VIAL IV ONE (19:00)
[2022-08-06 19:15] LABS: BASOPHILS % 0.2 % (0.0-1.0); EOSINOPHILS # (AUTO) 0.1 (0.0-0.4); EOSINOPHILS % 0.9 % (0.0-6.0); HEMATOCRIT 43.6 % (34.2-44.1); HEMOGLOBIN 14.2 g/dL (12.0-16.0); LYMPHOCYTES # (AUTO) 4.8 (1.0-3.2); LYMPHOCYTES % 37.8 % (18.0-39.1); MEAN CORPUSCULAR HEMOGLOBIN 31.8 pg (28-32); MEAN CORPUSCULAR HGB CONC 32.6 g/dL (31-35); MEAN CORPUSCULAR VOLUME 97.8 fL (81-99); MONOCYTES # (AUTO) 0.8 (0.2-0.8); NEUTROPHILS # (AUTO) 6.9 (2.1-6.9); NEUTROPHILS % 54.5 % (38.7-80.0); PLATELET COUNT 265 x10e3/uL (140-360); RED BLOOD COUNT 4.46 x10e6/uL (3.6-5.1)
[2022-08-06 19:33] LABS: ALANINE AMINOTRANSFERASE 24 IU/L (0-55); ALBUMIN/GLOBULIN RATIO 1.4 (0.8-2.0); ALKALINE PHOSPHATASE 84 IU/L (40-150); BLOOD UREA NITROGEN 12 mg/dL (7-26); BUN/CREATININE RATIO 17 (6-25); CALCIUM 9.5 mg/dL (8.4-10.2); CARBON DIOXIDE 28 mmol/L (22-29); CHLORIDE 101 mmol/L (98-107); CREATINE KINASE 44 IU/L (29-168); CREATININE, SERUM 0.72 mg/dL (0.57-1.11); GLUCOSE 90 mg/dL (74-118); SODIUM 140 mmol/L (136-145)
[2022-08-06 19:40] LABS: B-TYPE NATRIURETIC PEPTIDE2 42.2 pg/mL (0-100)
[2022-08-06] MEDS ORDERED: IOPAMIDOL 370 MG/ML 100 ML INFUS..BTL INJ ONE (19:43)
[2022-08-06] MEDS ORDERED: KETOROLAC TROMETHAMINE 30 MG/ML VIAL IV PRN (20:15)
[2022-08-06] MEDS ORDERED: Morphine 4mg INJECTION 4 MG/ML INJ IV STA (20:37)
[2022-08-06 21:30] VITALS: BP 145/68
[2022-08-06 21:40] VITALS: BP 164/70
[2022-08-06 22:00] VITALS: BP 164/70
[2022-08-06] MEDS: AZITHROMYCIN 250 MG TAB PO SCH (22:14)
[2022-08-06] MEDS: GUAIFENESIN/CODEINE 5 ML LIQD PO PRN (22:14)
[2022-08-06] MEDS: HYDROCODONE/APAP 10MG-325MG TAB PO PRN (22:15)
[2022-08-06] MEDS: SODIUM CHLORIDE 0.9% 1000ML 1,000 ML IV SCH (22:20)
[2022-08-07] VITALS (8 sets, daily range): BP systolic 122–158; BP diastolic 58–72
[2022-08-07] MEDS ORDERED: HYDRALAZINE HCL 20 MG/ML VIAL IV PRN
[2022-08-07] MEDS ORDERED: LABETALOL HCL 5 MG/ML 20ML VIAL IV PRN
[2022-08-07] MEDS ORDERED: Morphine 4mg INJECTION 4 MG/ML INJ IV PRN (01:00)
[2022-08-07] MEDS: HYDROCODONE/APAP 10MG-325MG TAB PO PRN ×3 (02:21→21:28)
[2022-08-07] MEDS ORDERED: METHYLPREDNISOLONE SOD SUCC 125 MG/2ML VIAL IV SCH (04:00)
[2022-08-07 05:54] LABS: HEMATOCRIT 39.5 % (34.2-44.1); HEMOGLOBIN 13.1 g/dL (12.0-16.0); LYMPHOCYTES # (AUTO) 1.1 (1.0-3.2); LYMPHOCYTES % 13.4 % (18.0-39.1); MEAN CORPUSCULAR HEMOGLOBIN 32.1 pg (28-32); MEAN CORPUSCULAR HGB CONC 33.2 g/dL (31-35); MEAN CORPUSCULAR VOLUME 96.8 fL (81-99); MONOCYTES # (AUTO) 0.1 (0.2-0.8); MONOCYTES % 1.2 % (4.4-11.3); NEUTROPHILS # (AUTO) 6.9 (2.1-6.9); NEUTROPHILS % 84.8 % (38.7-80.0); PLATELET COUNT 262 x10e3/uL (140-360); RED BLOOD COUNT 4.08 x10e6/uL (3.6-5.1); RED CELL DISTRIBUTION WIDTH 13.5 % (11.7-14.4)
[2022-08-07] MEDS: GUAIFENESIN/CODEINE 5 ML LIQD PO PRN (05:54)
[2022-08-07] MEDS: SODIUM CHLORIDE 0.9% 1000ML 1,000 ML IV SCH ×3 (05:54→21:30)
[2022-08-07 06:11] LABS: ALBUMIN 3.5 g/dL (3.5-5.0); ALBUMIN/GLOBULIN RATIO 1.2 (0.8-2.0); ANION GAP 17.4 mmol/L (8-16); CALCIUM 9.5 mg/dL (8.4-10.2); CREATININE, SERUM 0.72 mg/dL (0.57-1.11); POTASSIUM 4.4 mmol/L (3.5-5.1)
[2022-08-07 06:43] LABS: MAGNESIUM 2.2 MG/DL (1.3-2.1)
[2022-08-07 06:49] LABS: THYROID STIMULATING HORMONE 0.311 uIU/mL (0.350-4.940)
[2022-08-07] MEDS: ALBUTEROL SULF 0.083% NEB SOLN 3 ML NEB NEB PRN ×2 (07:00→21:30)
[2022-08-07] MEDS: IPRATROPIUM BROMIDE 0.02% 2.5 ML NEB NEB PRN ×2 (07:00→21:30)
[2022-08-07 08:14] LABS: CREATINE KINASE 44 IU/L (29-168)
[2022-08-07] MEDS ORDERED: NICOTINE 21 MG/EA PATCH TOP PRN (09:15)
[2022-08-07] MEDS ORDERED: CELECOXIB 100 MG CAP PO PRN (09:15)
[2022-08-07] MEDS ORDERED: PANTOPRAZOLE SOD 40 MG TABEC PO ONE (09:30)
[2022-08-07] MEDS: DOCUSATE SODIUM 100 MG CAP PO SCH (09:32)
[2022-08-07] MEDS: SENNOSIDES 8.6 MG TAB PO SCH (09:32)
[2022-08-07] MEDS: AZITHROMYCIN 250 MG TAB PO SCH (09:33)
[2022-08-07] MEDS: OYST-CAL-D 500MG TABLET PO SCH ×2 (10:57→17:03)
[2022-08-07 11:30] LABS: ABG HCO3 28 mmol/L (22-26); ABG PCO2 47 mmHg (35-45); ABG PH 7.38 (7.35-7.45); ABG PO2 122 mmHg (80-105); ABG TCO2 29
[2022-08-07] MEDS: BUDESONIDE/FORMOTEROL 160/4.5MCG INHALER INH SCH (12:11)
[2022-08-07 13:33] LABS: CREATINE KINASE 47 IU/L (29-168)
[2022-08-07] MEDS: METHYLPREDNISOLONE SOD SUCC 40 MG/ML VIAL 1ML IV SCH ×2 (14:41→21:28)
[2022-08-07] MEDS: ENOXAPARIN SOD INJ 40 MG/0.4 ML SYR SC SCH (17:04)
[2022-08-08] VITALS (8 sets, daily range): BP systolic 111–167; BP diastolic 51–84
[2022-08-08 05:11] LABS: BASOPHILS % 0.1 % (0.0-1.0); HEMATOCRIT 36.7 % (34.2-44.1); HEMOGLOBIN 11.7 g/dL (12.0-16.0); MEAN CORPUSCULAR HEMOGLOBIN 32.1 pg (28-32); MEAN CORPUSCULAR HGB CONC 31.9 g/dL (31-35); MEAN CORPUSCULAR VOLUME 100.8 fL (81-99); MONOCYTES # (AUTO) 0.6 (0.2-0.8); MONOCYTES % 4.2 % (4.4-11.3); NEUTROPHILS # (AUTO) 13.2 (2.1-6.9); PLATELET COUNT 237 x10e3/uL (140-360); RED BLOOD COUNT 3.64 x10e6/uL (3.6-5.1); RED CELL DISTRIBUTION WIDTH 13.6 % (11.7-14.4)
[2022-08-08 05:31] LABS: ANION GAP 13.9 mmol/L (8-16); CALCIUM 8.6 mg/dL (8.4-10.2); CREATININE, SERUM 0.67 mg/dL (0.57-1.11); POTASSIUM 3.9 mmol/L (3.5-5.1)
[2022-08-08 05:33] LABS: CREATINE KINASE 31 IU/L (29-168)
[2022-08-08] MEDS: SODIUM CHLORIDE 0.9% 1000ML 1,000 ML IV SCH ×2 (05:46→18:45)
[2022-08-08] MEDS: METHYLPREDNISOLONE SOD SUCC 40 MG/ML VIAL 1ML IV SCH ×3 (05:47→21:40)
[2022-08-08] MEDS: HYDROCODONE/APAP 10MG-325MG TAB PO PRN ×3 (05:58→20:06)
[2022-08-08] MEDS: BUDESONIDE/FORMOTEROL 160/4.5MCG INHALER INH SCH ×2 (06:53→19:40)
[2022-08-08] MEDS ORDERED: LATANOPROST2.5 ML OU (10:23)
[2022-08-08] MEDS: OYST-CAL-D 500MG TABLET PO SCH ×2 (10:29→17:39)
[2022-08-08] MEDS: SENNOSIDES 8.6 MG TAB PO SCH (10:29)
[2022-08-08] MEDS: AZITHROMYCIN 250 MG TAB PO SCH (10:29)
[2022-08-08] MEDS: PANTOPRAZOLE SOD 40 MG TABEC PO SCH (10:29)
[2022-08-08] MEDS: DOCUSATE SODIUM 100 MG CAP PO SCH (10:30)
[2022-08-08] MEDS: LIDOCAINE 4% PATCH TP SCH (10:31)
[2022-08-08] MEDS: LOSARTAN POTASSIUM 25 MG TAB PO SCH (10:36)
[2022-08-08] MEDS: ALBUTEROL SULF 0.083% NEB SOLN 3 ML NEB NEB PRN ×2 (17:30→22:10)
[2022-08-08] MEDS: ENOXAPARIN SOD INJ 40 MG/0.4 ML SYR SC SCH (17:39)
[2022-08-08] MEDS: TIZANIDINE HCL 4 MG TAB PO SCH (17:40)
[2022-08-08] MEDS: LATANOPROST(OPTH) 2.5 ML BTL OU SCH (20:04)
[2022-08-08] MEDS: GUAIFENESIN/CODEINE 5 ML LIQD PO PRN (23:55)
[2022-08-09] VITALS (8 sets, daily range): BP systolic 110–157; BP diastolic 59–79
[2022-08-09] MEDS: HYDROCODONE/APAP 10MG-325MG TAB PO PRN ×4 (02:36→21:44)
[2022-08-09] MEDS: SODIUM CHLORIDE 0.9% 1000ML 1,000 ML IV SCH ×2 (02:36→08:29)
[2022-08-09 05:32] LABS: BASOPHILS % 0.2 % (0.0-1.0); HEMATOCRIT 35.4 % (34.2-44.1); HEMOGLOBIN 11.3 g/dL (12.0-16.0); LYMPHOCYTES # (AUTO) 1.2 (1.0-3.2); MEAN CORPUSCULAR HEMOGLOBIN 32.1 pg (28-32); MEAN CORPUSCULAR HGB CONC 31.9 g/dL (31-35); MEAN CORPUSCULAR VOLUME 100.6 fL (81-99); MONOCYTES # (AUTO) 0.7 (0.2-0.8); MONOCYTES % 5.3 % (4.4-11.3); NEUTROPHILS # (AUTO) 11.1 (2.1-6.9); NEUTROPHILS % 84.6 % (38.7-80.0); PLATELET COUNT 237 x10e3/uL (140-360); RED BLOOD COUNT 3.52 x10e6/uL (3.6-5.1); RED CELL DISTRIBUTION WIDTH 13.9 % (11.7-14.4)
[2022-08-09] MEDS: METHYLPREDNISOLONE SOD SUCC 40 MG/ML VIAL 1ML IV SCH ×3 (05:59→21:35)
[2022-08-09 06:37] LABS: ALBUMIN 2.9 g/dL (3.5-5.0); ALBUMIN/GLOBULIN RATIO 1.3 (0.8-2.0); ANION GAP 12.3 mmol/L (8-16); CALCIUM 8.2 mg/dL (8.4-10.2); CREATININE, SERUM 0.56 mg/dL (0.57-1.11); MAGNESIUM 2.2 MG/DL (1.3-2.1); POTASSIUM 4.3 mmol/L (3.5-5.1)
[2022-08-09] MEDS: PANTOPRAZOLE SOD 40 MG TABEC PO SCH (08:13)
[2022-08-09] MEDS: DOCUSATE SODIUM 100 MG CAP PO SCH (08:29)
[2022-08-09] MEDS: TIZANIDINE HCL 4 MG TAB PO SCH ×2 (08:30→18:04)
[2022-08-09] MEDS: OYST-CAL-D 500MG TABLET PO SCH ×2 (08:30→18:02)
[2022-08-09] MEDS: SENNOSIDES 8.6 MG TAB PO SCH (08:31)
[2022-08-09] MEDS: LIDOCAINE 4% PATCH TP SCH (08:31)
[2022-08-09] MEDS: LOSARTAN POTASSIUM 25 MG TAB PO SCH (08:31)
[2022-08-09] MEDS: AZITHROMYCIN 250 MG TAB PO SCH (08:31)
[2022-08-09] MEDS: ALBUTEROL SULF 0.083% NEB SOLN 3 ML NEB NEB PRN ×4 (11:00→23:30)
[2022-08-09] MEDS: BUDESONIDE/FORMOTEROL 160/4.5MCG INHALER INH SCH ×2 (11:08→19:30)
[2022-08-09] MEDS: ENOXAPARIN SOD INJ 40 MG/0.4 ML SYR SC SCH (18:02)
[2022-08-09] MEDS: IPRATROPIUM BROMIDE 0.02% 2.5 ML NEB NEB PRN ×2 (19:30→23:30)
[2022-08-09] MEDS: LATANOPROST(OPTH) 2.5 ML BTL OU SCH (21:36)
[2022-08-09] MEDS: GUAIFENESIN/CODEINE 5 ML LIQD PO PRN (21:53)
[2022-08-10] MEDS: SODIUM CHLORIDE 0.9% 1000ML 1,000 ML IV SCH (00:20)
[2022-08-10 04:00] VITALS: BP 123/64
[2022-08-10] MEDS: METHYLPREDNISOLONE SOD SUCC 40 MG/ML VIAL 1ML IV SCH (05:58)
[2022-08-10] MEDS: HYDROCODONE/APAP 10MG-325MG TAB PO PRN (05:58)
[2022-08-10] MEDS: BUDESONIDE/FORMOTEROL 160/4.5MCG INHALER INH SCH (07:00)
[2022-08-10 08:11] VITALS: BP 146/65
[2022-08-10] MEDS: LIDOCAINE 4% PATCH TP SCH (08:19)
[2022-08-10] MEDS: DOCUSATE SODIUM 100 MG CAP PO SCH (08:19)
[2022-08-10] MEDS: PANTOPRAZOLE SOD 40 MG TABEC PO SCH (08:19)
[2022-08-10] MEDS: SENNOSIDES 8.6 MG TAB PO SCH (08:20)
[2022-08-10] MEDS: OYST-CAL-D 500MG TABLET PO SCH (08:20)
[2022-08-10] MEDS: TIZANIDINE HCL 4 MG TAB PO SCH (08:20)
[2022-08-10] MEDS: LOSARTAN POTASSIUM 25 MG TAB PO SCH (08:21)
[2022-08-10] MEDS: IPRATROPIUM BROMIDE 0.02% 2.5 ML NEB NEB PRN (10:20)
[2022-08-10] MEDS: ALBUTEROL SULF 0.083% NEB SOLN 3 ML NEB NEB PRN (10:20)
[2022-08-10] MEDS ORDERED: DOXYCYCLINE HY100 MG PO (10:31)
[2022-08-10] MEDS ORDERED: PREDNISONE10 MG PO (10:31)
[2022-08-10] MEDS ORDERED: LIDOCAINE1 EACH TOP (10:36)
== END 2022-08-10 11:20 | disposition home or self-care (01) | DRG 190 ==
LOC: ER 19:15 → ERHOLD 20:09 → MED/SURG 21:53
PROVIDERS: ADMIT Internal Medicine; ATTEND Internal Medicine
DX: J43.9 Emphysema, unspecified (principal); J96.01 Acute respiratory failure with hypoxia; S22.32XA Fracture of one rib, left side, initial encounter for closed fracture; W01.0XXA Fall on same level from slipping, tripping and stumbling without subsequent striking against object, initial encounter; I10 Essential (primary) hypertension; K21.9 Gastro-esophageal reflux disease without esophagitis; E78.5 Hyperlipidemia, unspecified; M54.9 Dorsalgia, unspecified; G89.29 Other chronic pain; M19.90 Unspecified osteoarthritis, unspecified site; H40.9 Unspecified glaucoma; R00.0 Tachycardia, unspecified; F17.210 Nicotine dependence, cigarettes, uncomplicated; K44.9 Diaphragmatic hernia without obstruction or gangrene; Z20.822 Contact with and (suspected) exposure to COVID-19; Z79.51 Long term (current) use of inhaled steroids; Z99.81 Dependence on supplemental oxygen
CPT/HCPCS: 36415; 36600; 71045; 71111; 71120; 71260; 80048; 80053; 82550; 82553; 82805; 83605; 83735; 83880; 84439; 84443; 84480; 84481; 84484; 85025; 87040; 87070; 87205; 93005; 94640; 94660; 94799; 99284; J1650; J2270; J2543; J2920; J2930; J7030; Q9967

== ENCOUNTER → 2022-09-29 | Outpatient (CLI) | payer MEDICARE ==
[~2022-09-29] MED LIST changes: +DOXYCYCLINE HY100 MG PO; +LATANOPROST2.5 ML OU; +LIDOCAINE1 EACH TOP
== END ==
LOC: RAD 11:09
PROVIDERS: ATTEND Internal Medicine
DX: S22.32XA Fracture of one rib, left side, initial encounter for closed fracture (principal)
CPT/HCPCS: 71101

== ENCOUNTER → 2022-10-04 | Outpatient (CLI) | payer MEDICARE | LOC: RAD 15:24 | PROVIDERS: ATTEND Nurse Practitioner | DX: K59.03 Drug induced constipation (principal) | CPT/HCPCS: 74018 ==

== ENCOUNTER → 2023-11-15 | Outpatient (REF) | payer MEDICARE ==
[~2023-11-15] MED LIST changes: +ALENDRONATE SOD70 MG PO; +ATORVASTATIN CA40 MG PO; +BACLOFEN5 MG PO; +BENZONATATE100 MG PO; +FLUTICASONE PRO16 GM INH; +METHOCARBAMOL750 MG PO; +NORVASC5 MG PO
== END ==
LOC: CT 15:33
PROVIDERS: ATTEND Internal Medicine
DX: R91.8 Other nonspecific abnormal finding of lung field (principal)
CPT/HCPCS: 71250

== ENCOUNTER 2023-11-17 22:50 | Inpatient (IN) | payer MEDICARE ==
[~2023-11-17] VITALS: Ht 167.6 cm; Wt 59.4 kg
[~2023-11-17 22:50] MED LIST changes: -BENZONATATE100 MG PO
[2023-11-17 22:56] VITALS: TEMP 99
[2023-11-17 23:15] LABS: BASOPHILS % 0.2 % (0.0-1.0); EOSINOPHILS # (AUTO) 0.1 (0.0-0.4); EOSINOPHILS % 1.4 % (0.0-6.0); HEMOGLOBIN 12.7 g/dL (12.0-16.0); LYMPHOCYTES # (AUTO) 2.6 (1.0-3.2); LYMPHOCYTES % 29.3 % (18.0-39.1); MEAN CORPUSCULAR HEMOGLOBIN 32.1 pg (28-32); MEAN CORPUSCULAR HGB CONC 31.8 g/dL (31-35); MONOCYTES # (AUTO) 0.8 (0.2-0.8); MONOCYTES % 8.7 % (4.4-11.3); NEUTROPHILS # (AUTO) 5.2 (2.1-6.9); NEUTROPHILS % 59.7 % (38.7-80.0); PLATELET COUNT 302 x10e3/uL (140-360); RED BLOOD COUNT 3.96 x10e6/uL (3.6-5.1); WHITE BLOOD COUNT 8.77 x10e3/uL (4.8-10.8)
[2023-11-17] MEDS: METHYLPREDNISOLONE SOD SUCC 125 MG/2ML VIAL IV ONE (23:15)
[2023-11-17 23:18] VITALS: PULSE 96; RESP 18; O2SAT 96
[2023-11-17] MEDS: ALBUTEROL/IPRATROPIUM 3 ML NEB NEB ONE (23:18)
[2023-11-17 23:38] LABS: ALANINE AMINOTRANSFERASE 14 IU/L (0-55); ALBUMIN 3.9 g/dL (3.5-5.0); ALBUMIN/GLOBULIN RATIO 1.6 (0.8-2.0); ALKALINE PHOSPHATASE 53 IU/L (40-150); ANION GAP 15.9 mmol/L (8-16); BILIRUBIN,TOTAL 0.3 mg/dL (0.2-1.2); BLOOD UREA NITROGEN 12 mg/dL (7-26); BUN/CREATININE RATIO 16 (6-25); CALCIUM 8.9 mg/dL (8.4-10.2); CARBON DIOXIDE 29 mmol/L (22-29); CHLORIDE 99 mmol/L (98-107); CREATINE KINASE 42 IU/L (29-168); CREATININE, SERUM 0.75 mg/dL (0.57-1.11); EST GLOMERULAR FILTRATION RATE 86 ML/MIN (>=60); GLUCOSE 99 mg/dL (74-118); POTASSIUM 3.9 mmol/L (3.5-5.1); SODIUM 140 mmol/L (136-145); TOTAL PROTEIN 6.3 g/dL (6.5-8.1)
[2023-11-17 23:42] LABS: B-TYPE NATRIURETIC PEPTIDE2 55.2 pg/mL (0-100)
[2023-11-17 23:54] LABS: TROPONIN I < 0.05 ng/mL (0.0-0.40)
[2023-11-18] VITALS (12 sets, daily range): BP systolic 123–156; BP diastolic 56–71; PULSE 70–92; RESP 18–20; TEMP 98.2–98.5; O2SAT 94–100
[2023-11-18] MEDS ORDERED: ONDANSETRON HCL INJ 2MG/ML 2ML 2 MG/ML VIAL IV PRN
[2023-11-18] MEDS: KETOROLAC TROMETHAMINE 30 MG/ML VIAL IV PRN (00:06)
[2023-11-18] MEDS: Morphine 2mg Syringe 2 MG/ML SYR IV PRN (01:30)
[2023-11-18] MEDS: SODIUM CHLORIDE 0.9% 1000ML 1,000 ML IV SCH (01:37)
[2023-11-18] MEDS: METHYLPREDNISOLONE SOD SUCC 40 MG/ML VIAL 1ML IV SCH ×3 (05:39→11:58)
[2023-11-18 06:28] LABS: HEMATOCRIT 34.2 % (34.2-44.1); HEMOGLOBIN 10.8 g/dL (12.0-16.0); MEAN CORPUSCULAR HEMOGLOBIN 31.8 pg (28-32); MEAN CORPUSCULAR HGB CONC 31.6 g/dL (31-35); MEAN CORPUSCULAR VOLUME 100.6 fL (81-99); PLATELET COUNT 270 x10e3/uL (140-360); RED CELL DISTRIBUTION WIDTH 13.9 % (11.7-14.4); WHITE BLOOD COUNT 7.46 x10e3/uL (4.8-10.8)
[2023-11-18 06:29] LABS: BASOPHILS % 0.3 % (0.0-1.0); EOSINOPHILS % 0.1 % (0.0-6.0); LYMPHOCYTES # (AUTO) 0.7 (1.0-3.2); LYMPHOCYTES % 9.5 % (18.0-39.1); MONOCYTES # (AUTO) 0.1 (0.2-0.8); MONOCYTES % 1.7 % (4.4-11.3); NEUTROPHILS # (AUTO) 6.5 (2.1-6.9); NEUTROPHILS % 87.5 % (38.7-80.0)
[2023-11-18 07:04] LABS: ANION GAP 14.8 mmol/L (8-16); POTASSIUM 3.8 mmol/L (3.5-5.1)
[2023-11-18 07:05] LABS: ALBUMIN 2.8 g/dL (3.5-5.0); ALBUMIN/GLOBULIN RATIO 1.6 (0.8-2.0); BILIRUBIN,TOTAL 0.1 mg/dL (0.2-1.2); CREATININE, SERUM 0.59 mg/dL (0.57-1.11); TOTAL PROTEIN 4.5 g/dL (6.5-8.1)
[2023-11-18 07:06] LABS: CREATINE KINASE 43 IU/L (29-168); TROPONIN I < 0.001 ng/mL (0-0.300)
[2023-11-18] MEDS: ALBUTEROL/IPRATROPIUM 3 ML NEB NEB PRN (07:45)
[2023-11-18] MEDS ORDERED: METOPROLOL TARTRATE INJ 1 MG/ML VIAL IV PRN (08:00)
[2023-11-18] MEDS ORDERED: MELATONIN 3 MG TAB PO PRN (08:00)
[2023-11-18] MEDS ORDERED: ACETAMINOPHEN 325 MG TAB PO PRN (08:00)
[2023-11-18] MEDS ORDERED: SIMETHICONE 80 MG CHEW PO PRN (08:00)
[2023-11-18] MEDS ORDERED: DOCUSATE SODIUM 100 MG CAP PO PRN (08:00)
[2023-11-18] MEDS ORDERED: GUAIFENESIN/DEXTROMETHORPHAN LIQD 5 ML UDC NG PRN (08:00)
[2023-11-18] MEDS: Doxycycline IV 100 MG in SODIUM CHLORIDE 0.9% 100 ML IV SCH (09:01)
[2023-11-18] MEDS: LORATADINE 10 MG TAB PO SCH (09:02)
[2023-11-18] MEDS: FLUTICASONE PROPIONATE NASAL SPRAY NS SCH (09:02)
[2023-11-18] MEDS: LOSARTAN POTASSIUM 25 MG TAB PO SCH (09:02)
[2023-11-18] MEDS: BENZONATATE 100 MG CAP PO SCH (09:02)
[2023-11-18] MEDS: PANTOPRAZOLE SOD 40 MG TABEC PO SCH (09:02)
[2023-11-18] MEDS: METHOCARBAMOL 500 MG TAB PO SCH (09:02)
[2023-11-18] MEDS: HYDROCODONE/APAP 10MG-325MG TAB PO PRN (09:03)
[2023-11-18] MEDS: AMLODIPINE BESYLATE 5 MG TAB PO SCH (09:03)
[2023-11-18] MEDS: ALBUTEROL/IPRATROPIUM 3 ML NEB NEB SCH (12:13)
[2023-11-18 17:00] LABS: CREATINE KINASE 33 IU/L (29-168)
[2023-11-18 17:14] LABS: TROPONIN I < 0.001 ng/mL (0-0.300)
[2023-11-18] MEDS ORDERED: REMDESIVIR 100MG 100 MG in SODIUM CHLORIDE 0.9% 100 ML IV SCH (18:30)
[2023-11-18] MEDS: BUDESONIDE 0.5MG/2 ML NEB INH SCH (19:45)
[2023-11-18] MEDS: REMDESIVIR 100MG 100 MG in SODIUM CHLORIDE 0.9% 100 ML IV SCH (20:21)
[2023-11-18] MEDS: ENOXAPARIN SOD INJ 40 MG/0.4 ML SYR SC SCH (20:24)
[2023-11-18] MEDS: LATANOPROST(OPTH) 2.5 ML BTL OU SCH (20:24)
[2023-11-18] MEDS: ATORVASTATIN 40 MG TAB PO SCH (20:25)
[2023-11-19] VITALS (12 sets, daily range): BP systolic 123–166; BP diastolic 52–72; PULSE 70–90; RESP 18–20; TEMP 97–98.6; O2SAT 95–100
[2023-11-19 07:24] LABS: BASOPHILS % 0.1 % (0.0-1.0); HEMATOCRIT 35.7 % (34.2-44.1); HEMOGLOBIN 11.4 g/dL (12.0-16.0); LYMPHOCYTES # (AUTO) 1.2 (1.0-3.2); LYMPHOCYTES % 13.4 % (18.0-39.1); MEAN CORPUSCULAR HGB CONC 31.9 g/dL (31-35); MEAN CORPUSCULAR VOLUME 100.3 fL (81-99); MONOCYTES # (AUTO) 0.5 (0.2-0.8); NEUTROPHILS # (AUTO) 7.3 (2.1-6.9); NEUTROPHILS % 81.1 % (38.7-80.0); PLATELET COUNT 296 x10e3/uL (140-360); RED BLOOD COUNT 3.56 x10e6/uL (3.6-5.1); RED CELL DISTRIBUTION WIDTH 13.7 % (11.7-14.4); WHITE BLOOD COUNT 9.04 x10e3/uL (4.8-10.8)
[2023-11-19 07:50] LABS: CREATININE, SERUM 0.65 mg/dL (0.57-1.11)
[2023-11-19] MEDS: LIDOCAINE 4% PATCH TP SCH (14:09)
[2023-11-19] MEDS: REMDESIVIR 100MG 100 MG in SODIUM CHLORIDE 0.9% 100 ML IV SCH (16:35)
[2023-11-20] VITALS (9 sets, daily range): BP systolic 122–154; BP diastolic 52–89; PULSE 71–97; RESP 18–20; TEMP 98.1–99.4; O2SAT 96–100
[2023-11-20] MEDS: Doxycycline IV 100 MG in SODIUM CHLORIDE 0.9% 100 ML IV SCH (06:14)
[2023-11-20 06:34] LABS: BASOPHILS % 0.1 % (0.0-1.0); HEMATOCRIT 33.3 % (34.2-44.1); HEMOGLOBIN 10.5 g/dL (12.0-16.0); LYMPHOCYTES # (AUTO) 0.8 (1.0-3.2); LYMPHOCYTES % 6.1 % (18.0-39.1); MEAN CORPUSCULAR HEMOGLOBIN 31.5 pg (28-32); MEAN CORPUSCULAR HGB CONC 31.5 g/dL (31-35); MONOCYTES # (AUTO) 0.5 (0.2-0.8); NEUTROPHILS # (AUTO) 11.9 (2.1-6.9); NEUTROPHILS % 89.1 % (38.7-80.0); PLATELET COUNT 280 x10e3/uL (140-360); RED BLOOD COUNT 3.33 x10e6/uL (3.6-5.1); RED CELL DISTRIBUTION WIDTH 13.7 % (11.7-14.4); WHITE BLOOD COUNT 13.38 x10e3/uL (4.8-10.8)
[2023-11-20 06:56] LABS: ALBUMIN 3.2 g/dL (3.5-5.0); ALBUMIN/GLOBULIN RATIO 1.4 (0.8-2.0); BILIRUBIN,TOTAL 0.2 mg/dL (0.2-1.2); CALCIUM 8.2 mg/dL (8.4-10.2); CREATININE, SERUM 0.59 mg/dL (0.57-1.11); POTASSIUM 3.7 mmol/L (3.5-5.1); TOTAL PROTEIN 5.5 g/dL (6.5-8.1)
[2023-11-20 09:06] LABS: ANION GAP 13.6 mmol/L (8-16)
[2023-11-21] VITALS (10 sets, daily range): BP systolic 115–148; BP diastolic 53–100; PULSE 72–99; RESP 18–20; TEMP 98–98.9; O2SAT 98–100
[2023-11-21 05:04] LABS: BASOPHILS % 0.1 % (0.0-1.0); HEMATOCRIT 33.1 % (34.2-44.1); HEMOGLOBIN 10.6 g/dL (12.0-16.0); LYMPHOCYTES % 6.2 % (18.0-39.1); MEAN CORPUSCULAR HEMOGLOBIN 31.6 pg (28-32); MEAN CORPUSCULAR VOLUME 98.8 fL (81-99); MONOCYTES # (AUTO) 0.8 (0.2-0.8); MONOCYTES % 4.7 % (4.4-11.3); NEUTROPHILS # (AUTO) 14.1 (2.1-6.9); NEUTROPHILS % 88.3 % (38.7-80.0); PLATELET COUNT 258 x10e3/uL (140-360); RED BLOOD COUNT 3.35 x10e6/uL (3.6-5.1); RED CELL DISTRIBUTION WIDTH 13.9 % (11.7-14.4); WHITE BLOOD COUNT 16.03 x10e3/uL (4.8-10.8)
[2023-11-21 05:35] LABS: ALBUMIN/GLOBULIN RATIO 1.3 (0.8-2.0); ANION GAP 9.6 mmol/L (8-16); BILIRUBIN,TOTAL 0.3 mg/dL (0.2-1.2); CALCIUM 8.4 mg/dL (8.4-10.2); CREATININE, SERUM 0.57 mg/dL (0.57-1.11); POTASSIUM 3.6 mmol/L (3.5-5.1); TOTAL PROTEIN 5.3 g/dL (6.5-8.1)
[2023-11-21] MEDS: NICOTINE 21 MG/EA PATCH TOP SCH (09:38)
[2023-11-21] MEDS ORDERED: ONDANSETRON HCL 4 MG ORAL DISINTEGRATING TAB PO PRN (15:00)
[2023-11-22] VITALS (8 sets, daily range): BP systolic 116–139; BP diastolic 56–68; PULSE 72–99; RESP 18–22; TEMP 98–98.9; O2SAT 96–100
[2023-11-22 05:29] LABS: BASOPHILS % 0.1 % (0.0-1.0); EOSINOPHILS % 0.1 % (0.0-6.0); HEMOGLOBIN 10.2 g/dL (12.0-16.0); LYMPHOCYTES # (AUTO) 2.5 (1.0-3.2); LYMPHOCYTES % 18.8 % (18.0-39.1); MEAN CORPUSCULAR HEMOGLOBIN 31.3 pg (28-32); MEAN CORPUSCULAR HGB CONC 31.9 g/dL (31-35); MEAN CORPUSCULAR VOLUME 98.2 fL (81-99); MONOCYTES # (AUTO) 1.1 (0.2-0.8); NEUTROPHILS # (AUTO) 9.7 (2.1-6.9); NEUTROPHILS % 71.5 % (38.7-80.0); PLATELET COUNT 233 x10e3/uL (140-360); RED BLOOD COUNT 3.26 x10e6/uL (3.6-5.1); RED CELL DISTRIBUTION WIDTH 13.7 % (11.7-14.4); WHITE BLOOD COUNT 13.54 x10e3/uL (4.8-10.8)
[2023-11-22 06:08] LABS: ALBUMIN 2.7 g/dL (3.5-5.0); ALBUMIN/GLOBULIN RATIO 1.3 (0.8-2.0); ANION GAP 12.5 mmol/L (8-16); BILIRUBIN,TOTAL 0.2 mg/dL (0.2-1.2); CREATININE, SERUM 0.57 mg/dL (0.57-1.11); MAGNESIUM 1.9 MG/DL (1.3-2.1); POTASSIUM 3.5 mmol/L (3.5-5.1); TOTAL PROTEIN 4.8 g/dL (6.5-8.1)
[2023-11-22] MEDS: METHYLPREDNISOLONE SOD SUCC 40 MG/ML VIAL 1ML IV SCH (09:29)
[2023-11-22] MEDS ORDERED: BENZONATATE100 MG PO (12:26)
== END 2023-11-22 16:06 | disposition home or self-care (01) | DRG 177 ==
LOC: ER 22:55 → ERHOLD 23:54 → MED/SURG2 11-18 00:57 → OBSVTOIN 11-19 09:10
PROVIDERS: ADMIT Internal Medicine; ATTEND Internal Medicine
PROC: XW033E5 Introduction of Remdesivir Anti-infective into Peripheral Vein, Percutaneous Approach, New Technology Group 5 (ICD-10-PCS; principal; 2023-11-19)
PROC: 02HV33Z Insertion of Infusion Device into Superior Vena Cava, Percutaneous Approach (ICD-10-PCS; 2023-11-20)
DX: U07.1 COVID-19 (principal); J96.21 Acute and chronic respiratory failure with hypoxia; I13.0 Hypertensive heart and chronic kidney disease with heart failure and stage 1 through stage 4 chronic kidney disease, or unspecified chronic kidney disease; J44.1 Chronic obstructive pulmonary disease with (acute) exacerbation; J39.8 Other specified diseases of upper respiratory tract; I50.9 Heart failure, unspecified; Z99.81 Dependence on supplemental oxygen; J43.9 Emphysema, unspecified; N18.9 Chronic kidney disease, unspecified; R13.10 Dysphagia, unspecified; M19.90 Unspecified osteoarthritis, unspecified site; M51.26 Other intervertebral disc displacement, lumbar region; Z79.51 Long term (current) use of inhaled steroids; Z63.4 Disappearance and death of family member; B96.5 Pseudomonas (aeruginosa) (mallei) (pseudomallei) as the cause of diseases classified elsewhere
CPT/HCPCS: 36415; 36569; 71045; 80048; 80053; 82550; 83605; 83690; 83735; 83880; 84484; 85025; 87040; 87070; 87186; 87205; 93005; 94640; 94799; 99252; 99284; G0378; J0248; J1650; J1885; J2270; J2919; J7030; J7050; U0002

== ENCOUNTER → 2023-12-28 | Outpatient (REF) | payer MEDICARE ==
[~2023-12-28] MED LIST changes: +BENZONATATE100 MG PO
== END ==
LOC: RAD 10:40
PROVIDERS: ATTEND Student in an Organized Health Care Education/Training Program
DX: M25.512 Pain in left shoulder (principal)

== ENCOUNTER 2024-02-13 17:59 | Inpatient (IN) | payer MEDICARE ==
[~2024-02-13] VITALS: Ht 165.1 cm; Wt 57.2 kg
[2024-02-13 18:10] VITALS: TEMP 98.7
[2024-02-13 18:42] LABS: HEMATOCRIT 40.5 % (34.2-44.1); HEMOGLOBIN 12.9 g/dL (12.0-16.0); LYMPHOCYTES # (AUTO) 2.9 (1.0-3.2); LYMPHOCYTES % 34.1 % (18.0-39.1); MEAN CORPUSCULAR HEMOGLOBIN 33.2 pg (28-32); MEAN CORPUSCULAR HGB CONC 31.9 g/dL (31-35); MEAN CORPUSCULAR VOLUME 104.4 fL (81-99); MONOCYTES # (AUTO) 0.5 (0.2-0.8); MONOCYTES % 5.7 % (4.4-11.3); NEUTROPHILS # (AUTO) 5.1 (2.1-6.9); NEUTROPHILS % 59.6 % (38.7-80.0); PLATELET COUNT 358 x10e3/uL (140-360); RED BLOOD COUNT 3.88 x10e6/uL (3.6-5.1); RED CELL DISTRIBUTION WIDTH 13.4 % (11.7-14.4); WHITE BLOOD COUNT 8.57 x10e3/uL (4.8-10.8)
[2024-02-13] MEDS: ACETAMINOPHEN 325 MG TAB PO STA (18:54)
[2024-02-13 18:58] LABS: ALBUMIN/GLOBULIN RATIO 1.4 (0.8-2.0); BILIRUBIN,TOTAL 0.3 mg/dL (0.2-1.2); CALCIUM 9.8 mg/dL (8.4-10.2); CREATININE, SERUM 0.71 mg/dL (0.57-1.11); TOTAL PROTEIN 6.9 g/dL (6.5-8.1)
[2024-02-13] MEDS: SODIUM CHLORIDE 0.9% 1000ML 1,000 ML IV STA (18:58)
[2024-02-13] MEDS: MAGNESIUM SULF 1GRAM/DEXTROSE 100 ML IV ONE (18:58)
[2024-02-13 19:05] LABS: TROPONIN I 0.001 ng/mL (0-0.300)
[2024-02-13 19:08] LABS: B-TYPE NATRIURETIC PEPTIDE2 48.3 pg/mL (0-100)
[2024-02-13] MEDS: ALBUTEROL/IPRATROPIUM 3 ML NEB NEB STA (19:39)
[2024-02-13] MEDS: SODIUM CHLORIDE 0.9% 1000ML 1,000 ML IV SCH (19:40)
[2024-02-13] MEDS: Morphine 4mg INJECTION 4 MG/ML INJ IV PRN (19:40)
[2024-02-13] MEDS: ONDANSETRON HCL INJ 2MG/ML 2ML 2 MG/ML VIAL IV PRN (19:40)
[2024-02-13] MEDS: METHYLPREDNISOLONE SOD SUCC 40 MG/ML VIAL 1ML IV SCH (19:40)
[2024-02-13 19:59] VITALS: PULSE 91; RESP 18
[2024-02-13 20:37] VITALS: BP 171/62; PULSE 88; RESP 20; TEMP 98.5; O2SAT 100
[2024-02-13 21:13] VITALS: PULSE 76; PULSE 80; RESP 16; O2SAT 93; O2SAT 97
[2024-02-14] VITALS (12 sets, daily range): BP systolic 123–144; BP diastolic 59–84; PULSE 71–87; RESP 17–23; TEMP 97.8–98.9; O2SAT 95–100
[2024-02-14 05:09] LABS: BASOPHILS % 0.2 % (0.0-1.0); HEMATOCRIT 39.1 % (34.2-44.1); LYMPHOCYTES # (AUTO) 1.4 (1.0-3.2); LYMPHOCYTES % 21.1 % (18.0-39.1); MEAN CORPUSCULAR HEMOGLOBIN 32.5 pg (28-32); MEAN CORPUSCULAR HGB CONC 30.7 g/dL (31-35); MONOCYTES # (AUTO) 0.1 (0.2-0.8); MONOCYTES % 1.7 % (4.4-11.3); NEUTROPHILS # (AUTO) 5.1 (2.1-6.9); NEUTROPHILS % 76.1 % (38.7-80.0); PLATELET COUNT 296 x10e3/uL (140-360); RED BLOOD COUNT 3.69 x10e6/uL (3.6-5.1); WHITE BLOOD COUNT 6.65 x10e3/uL (4.8-10.8)
[2024-02-14 05:38] LABS: ALBUMIN 3.6 g/dL (3.5-5.0); ALBUMIN/GLOBULIN RATIO 1.4 (0.8-2.0); ANION GAP 14.3 mmol/L (8-16); BILIRUBIN,TOTAL 0.3 mg/dL (0.2-1.2); CREATININE, SERUM 0.65 mg/dL (0.57-1.11); POTASSIUM 4.3 mmol/L (3.5-5.1); TOTAL PROTEIN 6.1 g/dL (6.5-8.1)
[2024-02-14 06:06] LABS: TROPONIN I 0.001 ng/mL (0-0.300)
[2024-02-14] MEDS ORDERED: ALBUTEROL/IPRATROPIUM 3 ML NEB NEB PRN (08:00)
[2024-02-14] MEDS ORDERED: NICOTINE 21 MG/EA PATCH TOP PRN (09:00)
[2024-02-14] MEDS ORDERED: BISACODYL 10 MG SUPP PR PRN (09:45)
[2024-02-14] MEDS ORDERED: ACETAMINOPHEN 325 MG TAB PO PRN (09:45)
[2024-02-14] MEDS ORDERED: HYDRALAZINE HCL 20 MG/ML VIAL IV PRN (09:45)
[2024-02-14] MEDS: LOSARTAN POTASSIUM 25 MG TAB PO SCH (10:07)
[2024-02-14] MEDS: LIDOCAINE 4% PATCH TP SCH (10:07)
[2024-02-14] MEDS: FLUTICASONE PROPIONATE NASAL SPRAY NS SCH (10:07)
[2024-02-14] MEDS: HYDROCODONE/APAP 10MG-325MG TAB PO PRN (10:08)
[2024-02-14] MEDS: PANTOPRAZOLE SOD 40 MG TABEC PO SCH (10:08)
[2024-02-14] MEDS: ALBUTEROL/IPRATROPIUM 3 ML NEB NEB SCH (10:35)
[2024-02-14] MEDS ORDERED: DICYCLOMINE HCL 10 MG CAP PO PRN (10:45)
[2024-02-14 15:12] LABS: TROPONIN I 0.007 ng/mL (0-0.300)
[2024-02-14] MEDS: CELECOXIB 100 MG CAP PO SCH (16:09)
[2024-02-14] MEDS: METHYLPREDNISOLONE SOD SUCC 40 MG/ML VIAL 1ML IV SCH (16:09)
[2024-02-14] MEDS: ENOXAPARIN SOD INJ 40 MG/0.4 ML SYR SC SCH (16:10)
[2024-02-14] MEDS: BUDESONIDE/FORMOTEROL 160/4.5MCG INHALER INH SCH (19:49)
[2024-02-14] MEDS: LATANOPROST(OPTH) 2.5 ML BTL OU SCH (21:21)
[2024-02-14] MEDS: ATORVASTATIN 40 MG TAB PO SCH (21:22)
[2024-02-15] VITALS (12 sets, daily range): BP systolic 131–150; BP diastolic 56–73; PULSE 73–93; RESP 17–23; TEMP 97.6–98; O2SAT 95–100
[2024-02-15 05:25] LABS: BASOPHILS % 0.1 % (0.0-1.0); HEMATOCRIT 35.3 % (34.2-44.1); HEMOGLOBIN 10.9 g/dL (12.0-16.0); LYMPHOCYTES # (AUTO) 2.1 (1.0-3.2); LYMPHOCYTES % 21.7 % (18.0-39.1); MEAN CORPUSCULAR HEMOGLOBIN 32.9 pg (28-32); MEAN CORPUSCULAR HGB CONC 30.9 g/dL (31-35); MEAN CORPUSCULAR VOLUME 106.6 fL (81-99); MONOCYTES # (AUTO) 0.7 (0.2-0.8); MONOCYTES % 6.9 % (4.4-11.3); NEUTROPHILS # (AUTO) 6.8 (2.1-6.9); PLATELET COUNT 276 x10e3/uL (140-360); RED BLOOD COUNT 3.31 x10e6/uL (3.6-5.1); RED CELL DISTRIBUTION WIDTH 12.9 % (11.7-14.4); WHITE BLOOD COUNT 9.66 x10e3/uL (4.8-10.8)
[2024-02-15 06:02] LABS: ALBUMIN 3.1 g/dL (3.5-5.0); ALBUMIN/GLOBULIN RATIO 1.5 (0.8-2.0); ANION GAP 13.4 mmol/L (8-16); BILIRUBIN,TOTAL 0.2 mg/dL (0.2-1.2); CALCIUM 8.9 mg/dL (8.4-10.2); CREATININE, SERUM 0.63 mg/dL (0.57-1.11); MAGNESIUM 2.2 MG/DL (1.3-2.1); POTASSIUM 4.4 mmol/L (3.5-5.1); TOTAL PROTEIN 5.2 g/dL (6.5-8.1)
[2024-02-15] MEDS: SENNOSIDES 8.6 MG TAB PO SCH (09:54)
[2024-02-15] MEDS: DOCUSATE SODIUM 100 MG CAP PO SCH (09:54)
[2024-02-15] MEDS: METHYLPREDNISOLONE SOD SUCC 40 MG/ML VIAL 1ML IV SCH (16:27)
[2024-02-16] VITALS (13 sets, daily range): BP systolic 124–153; BP diastolic 57–77; PULSE 76–99; RESP 16–21; TEMP 97.8–98.7; O2SAT 96–100
[2024-02-16 05:29] LABS: BASOPHILS % 0.1 % (0.0-1.0); HEMATOCRIT 36.6 % (34.2-44.1); HEMOGLOBIN 11.5 g/dL (12.0-16.0); LYMPHOCYTES # (AUTO) 2.3 (1.0-3.2); LYMPHOCYTES % 20.8 % (18.0-39.1); MEAN CORPUSCULAR HEMOGLOBIN 32.9 pg (28-32); MEAN CORPUSCULAR HGB CONC 31.4 g/dL (31-35); MEAN CORPUSCULAR VOLUME 104.6 fL (81-99); MONOCYTES # (AUTO) 0.8 (0.2-0.8); NEUTROPHILS # (AUTO) 7.8 (2.1-6.9); NEUTROPHILS % 70.8 % (38.7-80.0); PLATELET COUNT 302 x10e3/uL (140-360); WHITE BLOOD COUNT 11.03 x10e3/uL (4.8-10.8)
[2024-02-16 05:48] LABS: ANION GAP 11.6 mmol/L (8-16); CALCIUM 8.8 mg/dL (8.4-10.2); CREATININE, SERUM 0.62 mg/dL (0.57-1.11); POTASSIUM 3.6 mmol/L (3.5-5.1)
[2024-02-16] MEDS: TRIAMCINOLONE ACET 0.1% CREAM 15 GM TUBE TOP SCH (12:58)
[2024-02-16] MEDS: METHYLPREDNISOLONE SOD SUCC 40 MG/ML VIAL 1ML IV SCH (16:12)
[2024-02-17] VITALS (14 sets, daily range): BP systolic 130–159; BP diastolic 59–83; PULSE 73–93; RESP 19–23; TEMP 98–98.5; O2SAT 96–100
[2024-02-17 06:13] LABS: EOSINOPHILS % 0.1 % (0.0-6.0); HEMATOCRIT 34.7 % (34.2-44.1); HEMOGLOBIN 10.8 g/dL (12.0-16.0); LYMPHOCYTES # (AUTO) 2.9 (1.0-3.2); LYMPHOCYTES % 29.2 % (18.0-39.1); MEAN CORPUSCULAR HEMOGLOBIN 32.3 pg (28-32); MEAN CORPUSCULAR HGB CONC 31.1 g/dL (31-35); MEAN CORPUSCULAR VOLUME 103.9 fL (81-99); MONOCYTES # (AUTO) 0.8 (0.2-0.8); MONOCYTES % 8.5 % (4.4-11.3); NEUTROPHILS # (AUTO) 5.9 (2.1-6.9); NEUTROPHILS % 60.6 % (38.7-80.0); PLATELET COUNT 251 x10e3/uL (140-360); RED BLOOD COUNT 3.34 x10e6/uL (3.6-5.1); RED CELL DISTRIBUTION WIDTH 12.7 % (11.7-14.4); WHITE BLOOD COUNT 9.75 x10e3/uL (4.8-10.8)
[2024-02-17 06:51] LABS: ANION GAP 11.6 mmol/L (8-16); CALCIUM 8.5 mg/dL (8.4-10.2); CREATININE, SERUM 0.58 mg/dL (0.57-1.11); POTASSIUM 3.6 mmol/L (3.5-5.1)
[2024-02-18] VITALS (7 sets, daily range): BP systolic 124–137; BP diastolic 56–64; PULSE 66–85; RESP 17–23; TEMP 97.9–98.2; O2SAT 98–100
[2024-02-18] MEDS ORDERED: AMOX TR-K CLV1 EAC2 PO (12:36)
[2024-02-19] MEDS ORDERED: PREDNISONE 20 MG TAB PO SCH (09:00)
== END 2024-02-18 14:09 | disposition home or self-care (01) | DRG 190 ==
LOC: ER 18:07 → ERHOLD 19:28 → MED/SURG 20:27
PROVIDERS: ADMIT Internal Medicine; ATTEND Internal Medicine
DX: J44.1 Chronic obstructive pulmonary disease with (acute) exacerbation (principal); E43 Unspecified severe protein-calorie malnutrition; J96.11 Chronic respiratory failure with hypoxia; J98.4 Other disorders of lung; J39.8 Other specified diseases of upper respiratory tract; Z99.81 Dependence on supplemental oxygen; I25.10 Atherosclerotic heart disease of native coronary artery without angina pectoris; I10 Essential (primary) hypertension; K21.9 Gastro-esophageal reflux disease without esophagitis; E78.5 Hyperlipidemia, unspecified; M19.90 Unspecified osteoarthritis, unspecified site; I73.9 Peripheral vascular disease, unspecified; Z68.20 Body mass index [BMI] 20.0-20.9, adult; R91.8 Other nonspecific abnormal finding of lung field; G89.4 Chronic pain syndrome; M54.50 Low back pain, unspecified; M54.32 Sciatica, left side; M54.31 Sciatica, right side; R29.898 Other symptoms and signs involving the musculoskeletal system; Z79.52 Long term (current) use of systemic steroids; Z79.51 Long term (current) use of inhaled steroids; Z11.52 Encounter for screening for COVID-19; F17.210 Nicotine dependence, cigarettes, uncomplicated; Z82.49 Family history of ischemic heart disease and other diseases of the circulatory system
CPT/HCPCS: 36415; 36568; 71045; 71250; 80048; 80053; 82550; 82785; 83605; 83690; 83735; 83880; 84484; 85025; 87040; 87070; 87102; 87116; 87205; 87206; 93005; 94640; 94660; 94664; 94799; 99252; 99285; J1650; J2270; J2405; J2543; J2919; J3475; J7030; U0002

== ENCOUNTER → 2024-04-10 | Outpatient (REF) | payer MEDICARE ==
[~2024-04-10] MED LIST changes: +AMOX TR-K CLV1 EAC2 PO
== END ==
LOC: MRI 08:50
PROVIDERS: ATTEND Student in an Organized Health Care Education/Training Program
DX: M54.6 Pain in thoracic spine (principal); M54.17 Radiculopathy, lumbosacral region; M43.06 Spondylolysis, lumbar region
CPT/HCPCS: 72146; 72148; 72220

== ENCOUNTER → 2024-06-15 | Outpatient (REF) | payer MEDICARE | LOC: CT 11:11 | PROVIDERS: ATTEND Internal Medicine | DX: R91.8 Other nonspecific abnormal finding of lung field (principal) | CPT/HCPCS: 71250 ==

== ENCOUNTER 2024-08-02 19:08 | Inpatient (IN) | payer MEDICARE ==
[~2024-08-02] VITALS: Ht 162.6 cm; Wt 53.5 kg
[2024-08-02 19:12] VITALS: TEMP 98.6
[2024-08-02] MEDS: SODIUM CHLORIDE 0.9% 1000ML 1,000 ML IV STA (19:25)
[2024-08-02] MEDS: ACETAMINOPHEN 325 MG TAB PO STA (19:25)
[2024-08-02 19:37] LABS: BASOPHILS % 0.3 % (0.0-1.0); EOSINOPHILS # (AUTO) 0.2 (0.0-0.4); HEMATOCRIT 38.2 % (34.2-44.1); HEMOGLOBIN 12.5 g/dL (12.0-16.0); LYMPHOCYTES # (AUTO) 2.9 (1.0-3.2); MEAN CORPUSCULAR HEMOGLOBIN 32.3 pg (28-32); MEAN CORPUSCULAR HGB CONC 32.7 g/dL (31-35); MEAN CORPUSCULAR VOLUME 98.7 fL (81-99); MONOCYTES # (AUTO) 0.7 (0.2-0.8); NEUTROPHILS # (AUTO) 5.1 (2.1-6.9); NEUTROPHILS % 57.4 % (38.7-80.0); PLATELET COUNT 295 x10e3/uL (140-360); RED BLOOD COUNT 3.87 x10e6/uL (3.6-5.1); RED CELL DISTRIBUTION WIDTH 14.4 % (11.7-14.4); WHITE BLOOD COUNT 8.91 x10e3/uL (4.8-10.8)
[2024-08-02 19:56] LABS: ALBUMIN 4.2 g/dL (3.5-5.0); ALBUMIN/GLOBULIN RATIO 1.5 (0.8-2.0); ANION GAP 14.9 mmol/L (8-16); BILIRUBIN,TOTAL 0.4 mg/dL (0.2-1.2); CALCIUM 9.6 mg/dL (8.4-10.2); CREATININE, SERUM 0.74 mg/dL (0.57-1.11); POTASSIUM 3.9 mmol/L (3.5-5.1)
[2024-08-02 19:57] LABS: INFLUENZA A AG NEGATIVE (NEGATIVE)
[2024-08-02 19:58] LABS: CORONAVIRUS COVID-19 AG NEGATIVE (NEGATIVE); INFLUENZA B AG NEGATIVE (NEGATIVE)
[2024-08-02 20:02] LABS: TROPONIN I 0.009 ng/mL (0-0.300)
[2024-08-02 21:30] VITALS: PULSE 81; RESP 20
[2024-08-02] MEDS: METHYLPREDNISOLONE SOD SUCC 40 MG/ML VIAL 1ML IV SCH (21:35)
[2024-08-02 22:20] VITALS: PULSE 81; RESP 18; O2SAT 99
[2024-08-02 22:58] VITALS: PULSE 73; RESP 20; O2SAT 99
[2024-08-02] MEDS: ALBUTEROL/IPRATROPIUM 3 ML NEB NEB PRN (23:00)
[2024-08-02] MEDS ORDERED: HYDRALAZINE HCL 20 MG/ML VIAL IV PRN (23:30)
[2024-08-02] MEDS ORDERED: BISACODYL 10 MG SUPP PR PRN (23:30)
[2024-08-02] MEDS ORDERED: POLYETHYLENE GLYCOL 3350 17 GM PACK PO PRN (23:30)
[2024-08-02] MEDS ORDERED: ACETAMINOPHEN 325 MG TAB PO PRN (23:30)
[2024-08-03] VITALS (12 sets, daily range): BP systolic 119–169; BP diastolic 53–98; PULSE 73–92; RESP 17–20; TEMP 97.5–98.3; O2SAT 94–100
[2024-08-03] MEDS: ONDANSETRON HCL INJ 2MG/ML 2ML 2 MG/ML VIAL IV PRN
[2024-08-03] MEDS: HYDROCODONE/APAP 10MG-325MG TAB PO PRN
[2024-08-03] MEDS: SODIUM CHLORIDE 0.9% 250ML 250 ML ONE (00:01)
[2024-08-03] MEDS: METHYLPREDNISOLONE SOD SUCC 40 MG/ML VIAL 1ML IV SCH ×2 (03:04→09:34)
[2024-08-03 06:38] LABS: BASOPHILS % 0.2 % (0.0-1.0); HEMATOCRIT 34.4 % (34.2-44.1); HEMOGLOBIN 11.1 g/dL (12.0-16.0); LYMPHOCYTES # (AUTO) 0.7 (1.0-3.2); LYMPHOCYTES % 13.3 % (18.0-39.1); MEAN CORPUSCULAR HEMOGLOBIN 32.6 pg (28-32); MEAN CORPUSCULAR HGB CONC 32.3 g/dL (31-35); MEAN CORPUSCULAR VOLUME 100.9 fL (81-99); MONOCYTES % 0.8 % (4.4-11.3); NEUTROPHILS # (AUTO) 4.3 (2.1-6.9); NEUTROPHILS % 85.5 % (38.7-80.0); PLATELET COUNT 260 x10e3/uL (140-360); RED BLOOD COUNT 3.41 x10e6/uL (3.6-5.1); RED CELL DISTRIBUTION WIDTH 14.2 % (11.7-14.4); WHITE BLOOD COUNT 4.98 x10e3/uL (4.8-10.8)
[2024-08-03 07:25] LABS: ALBUMIN 3.6 g/dL (3.5-5.0); ALBUMIN/GLOBULIN RATIO 1.6 (0.8-2.0); ANION GAP 13.5 mmol/L (8-16); BILIRUBIN,TOTAL 0.3 mg/dL (0.2-1.2); CALCIUM 8.7 mg/dL (8.4-10.2); CREATININE, SERUM 0.62 mg/dL (0.57-1.11); POTASSIUM 4.5 mmol/L (3.5-5.1); TOTAL PROTEIN 5.9 g/dL (6.5-8.1)
[2024-08-03 07:40] LABS: TROPONIN I 0.007 ng/mL (0-0.300)
[2024-08-03] MEDS: BUDESONIDE/FORMOTEROL 160/4.5MCG INHALER INH SCH (07:44)
[2024-08-03] MEDS: LIDOCAINE 4% PATCH TP SCH (08:43)
[2024-08-03] MEDS: PANTOPRAZOLE SOD 40 MG TABEC PO SCH (08:44)
[2024-08-03] MEDS: LOSARTAN POTASSIUM 25 MG TAB PO SCH (08:44)
[2024-08-03] MEDS: AMLODIPINE BESYLATE 5 MG TAB PO SCH (08:45)
[2024-08-03] MEDS: DOCUSATE SODIUM 100 MG CAP PO SCH (08:45)
[2024-08-03] MEDS: GUAIFENESIN 200 MG/10 ML UDC PO PRN (12:04)
[2024-08-03] MEDS: ALBUTEROL/IPRATROPIUM 3 ML NEB NEB SCH (13:39)
[2024-08-03 14:02] LABS: TROPONIN I 0.001 ng/mL (0-0.300)
[2024-08-03] MEDS: BENZONATATE 100 MG CAP PO SCH (14:21)
[2024-08-03] MEDS: ENOXAPARIN SOD INJ 40 MG/0.4 ML SYR SC SCH (16:46)
[2024-08-03] MEDS: ATORVASTATIN 40 MG TAB PO SCH (21:39)
[2024-08-04] VITALS (10 sets, daily range): BP systolic 136–154; BP diastolic 67–77; PULSE 74–93; RESP 16–20; TEMP 97.5–98.2; O2SAT 98–100
[2024-08-04] MEDS: Morphine 2mg Syringe 2 MG/ML SYR IV PRN (02:57)
[2024-08-04 06:34] LABS: BASOPHILS % 0.1 % (0.0-1.0); HEMATOCRIT 34.2 % (34.2-44.1); LYMPHOCYTES % 13.6 % (18.0-39.1); MEAN CORPUSCULAR HEMOGLOBIN 32.3 pg (28-32); MEAN CORPUSCULAR HGB CONC 32.2 g/dL (31-35); MEAN CORPUSCULAR VOLUME 100.3 fL (81-99); MONOCYTES # (AUTO) 0.3 (0.2-0.8); NEUTROPHILS % 81.9 % (38.7-80.0); PLATELET COUNT 246 x10e3/uL (140-360); RED BLOOD COUNT 3.41 x10e6/uL (3.6-5.1); RED CELL DISTRIBUTION WIDTH 14.2 % (11.7-14.4); WHITE BLOOD COUNT 7.27 x10e3/uL (4.8-10.8)
[2024-08-04 06:48] LABS: ANION GAP 12.2 mmol/L (8-16); CALCIUM 8.8 mg/dL (8.4-10.2); CREATININE, SERUM 0.58 mg/dL (0.57-1.11); POTASSIUM 4.2 mmol/L (3.5-5.1)
[2024-08-04] MEDS: BACLOFEN 10 MG TAB PO SCH (12:49)
[2024-08-04] MEDS: LIDOCAINE 4% PATCH TP SCH (16:43)
[2024-08-04] MEDS ORDERED: AMOX TR-K CLV1 EAC2 PO (16:57)
[2024-08-05] VITALS (12 sets, daily range): BP systolic 121–156; BP diastolic 53–74; PULSE 72–88; RESP 18–19; TEMP 97.6–98.7; O2SAT 94–100
[2024-08-05 05:09] LABS: BASOPHILS % 0.1 % (0.0-1.0); HEMATOCRIT 33.2 % (34.2-44.1); HEMOGLOBIN 10.9 g/dL (12.0-16.0); LYMPHOCYTES # (AUTO) 1.2 (1.0-3.2); LYMPHOCYTES % 13.2 % (18.0-39.1); MEAN CORPUSCULAR HEMOGLOBIN 32.5 pg (28-32); MEAN CORPUSCULAR HGB CONC 32.8 g/dL (31-35); MEAN CORPUSCULAR VOLUME 99.1 fL (81-99); MONOCYTES # (AUTO) 0.5 (0.2-0.8); MONOCYTES % 5.6 % (4.4-11.3); NEUTROPHILS # (AUTO) 7.5 (2.1-6.9); NEUTROPHILS % 80.3 % (38.7-80.0); PLATELET COUNT 256 x10e3/uL (140-360); RED BLOOD COUNT 3.35 x10e6/uL (3.6-5.1); RED CELL DISTRIBUTION WIDTH 13.7 % (11.7-14.4); WHITE BLOOD COUNT 9.32 x10e3/uL (4.8-10.8)
[2024-08-05 05:44] LABS: CALCIUM 8.8 mg/dL (8.4-10.2); CREATININE, SERUM 0.58 mg/dL (0.57-1.11)
[2024-08-05] MEDS: SUCRALFATE 1 GM TAB PO SCH (11:39)
[2024-08-06] VITALS (8 sets, daily range): BP systolic 118–143; BP diastolic 51–61; PULSE 68–99; RESP 18–20; TEMP 97.2–98.2; O2SAT 99–100
[2024-08-06 06:00] LABS: BASOPHILS % 0.1 % (0.0-1.0); HEMATOCRIT 35.8 % (34.2-44.1); HEMOGLOBIN 11.7 g/dL (12.0-16.0); LYMPHOCYTES % 10.7 % (18.0-39.1); MEAN CORPUSCULAR HEMOGLOBIN 32.4 pg (28-32); MEAN CORPUSCULAR HGB CONC 32.7 g/dL (31-35); MEAN CORPUSCULAR VOLUME 99.2 fL (81-99); MONOCYTES # (AUTO) 0.4 (0.2-0.8); MONOCYTES % 4.5 % (4.4-11.3); NEUTROPHILS # (AUTO) 7.5 (2.1-6.9); NEUTROPHILS % 83.7 % (38.7-80.0); PLATELET COUNT 254 x10e3/uL (140-360); RED BLOOD COUNT 3.61 x10e6/uL (3.6-5.1); RED CELL DISTRIBUTION WIDTH 13.4 % (11.7-14.4)
[2024-08-06] MEDS ORDERED: LEVSIN-SL0.125 MG SL (15:50)
== END 2024-08-06 16:53 | disposition home or self-care (01) | DRG 190 ==
LOC: ER 19:12 → ERHOLD 21:14 → MED/SURG3 22:16 → OBSVTOIN 08-03 19:50
PROVIDERS: ADMIT Internal Medicine; ATTEND Internal Medicine
DX: J44.1 Chronic obstructive pulmonary disease with (acute) exacerbation (principal); E43 Unspecified severe protein-calorie malnutrition; J96.21 Acute and chronic respiratory failure with hypoxia; J39.8 Other specified diseases of upper respiratory tract; I11.0 Hypertensive heart disease with heart failure; I50.9 Heart failure, unspecified; Z99.81 Dependence on supplemental oxygen; K27.9 Peptic ulcer, site unspecified, unspecified as acute or chronic, without hemorrhage or perforation; K21.9 Gastro-esophageal reflux disease without esophagitis; R53.81 Other malaise; Z11.52 Encounter for screening for COVID-19; I25.10 Atherosclerotic heart disease of native coronary artery without angina pectoris; M54.9 Dorsalgia, unspecified; M47.814 Spondylosis without myelopathy or radiculopathy, thoracic region; R91.1 Solitary pulmonary nodule; E78.5 Hyperlipidemia, unspecified; Z68.20 Body mass index [BMI] 20.0-20.9, adult; Z79.51 Long term (current) use of inhaled steroids; F17.200 Nicotine dependence, unspecified, uncomplicated
CPT/HCPCS: 36415; 71045; 71250; 80048; 80053; 82550; 83605; 83690; 83735; 83880; 84484; 85025; 87040; 87086; 93005; 94640; 94664; 94799; 99284; G0378; J0696; J1650; J2270; J2405; J2470; J2543; J2919; J7030; J7050

== ENCOUNTER 2024-08-21 16:59 | Inpatient (IN) | payer MEDICARE ==
[2024-08-21] VITALS (9 sets, daily range): BP systolic 161–178; BP diastolic 61–101; PULSE 81–108; RESP 17–39; TEMP 97.5–98.4; O2SAT 100
[~2024-08-21] VITALS: Ht 162.6 cm; Wt 59.0 kg
[~2024-08-21 16:59] MED LIST changes: +LEVSIN-SL0.125 MG SL
[2024-08-21] MEDS ORDERED: ALBUTEROL/IPRATROPIUM 3 ML NEB ONE (17:06)
[2024-08-21] MEDS ORDERED: SODIUM CHLORIDE 0.9% 1000ML 1,630 ML IV SCH (17:15)
[2024-08-21 17:40] LABS: BASOPHILS % 0.1 % (0.0-1.0); EOSINOPHILS % 0.1 % (0.0-6.0); HEMATOCRIT 36.7 % (34.2-44.1); HEMOGLOBIN 12.2 g/dL (12.0-16.0); LYMPHOCYTES # (AUTO) 3.1 (1.0-3.2); LYMPHOCYTES % 23.4 % (18.0-39.1); MEAN CORPUSCULAR HEMOGLOBIN 32.7 pg (28-32); MEAN CORPUSCULAR HGB CONC 33.2 g/dL (31-35); MEAN CORPUSCULAR VOLUME 98.4 fL (81-99); MONOCYTES % 7.3 % (4.4-11.3); NEUTROPHILS # (AUTO) 8.9 (2.1-6.9); NEUTROPHILS % 68.4 % (38.7-80.0); PLATELET COUNT 320 x10e3/uL (140-360); RED BLOOD COUNT 3.73 x10e6/uL (3.6-5.1); RED CELL DISTRIBUTION WIDTH 15.8 % (11.7-14.4); WHITE BLOOD COUNT 13.06 x10e3/uL (4.8-10.8)
[2024-08-21 17:45] LABS: INR 0.75
[2024-08-21 17:46] LABS: ABG HCO3 31 mmol/L (22-26); ABG PCO2 50 mmHg (35-45); ABG PO2 41 mmHg (80-105); ABG TCO2 32
[2024-08-21 17:46] LABS: PARTIAL THROMBOPLASTIN TIME 19.8 seconds (23.8-35.5)
[2024-08-21 17:54] LABS: ALBUMIN/GLOBULIN RATIO 1.5 (0.8-2.0); ANION GAP 15.9 mmol/L (8-16); BILIRUBIN,TOTAL 0.4 mg/dL (0.2-1.2); CREATININE, SERUM 0.74 mg/dL (0.57-1.11); POTASSIUM 3.9 mmol/L (3.5-5.1); TOTAL PROTEIN 6.6 g/dL (6.5-8.1)
[2024-08-21] MEDS: ALBUTEROL/IPRATROPIUM 3 ML NEB NEB ONE (17:56)
[2024-08-21 18:00] LABS: TROPONIN I 0.002 ng/mL (0-0.300)
[2024-08-21] MEDS: MEROPENEM 1 GM in SODIUM CHLORIDE 0.9% 100 ML IV ONE (18:11)
[2024-08-21] MEDS: SODIUM CHLORIDE 0.9% 1000ML 1,000 ML IV STA (18:11)
[2024-08-21] MEDS: Vancomycin IV 1 GM in SODIUM CHLORIDE 0.9% 250ML 250 ML IV ONE (18:12)
[2024-08-21] MEDS ORDERED: ONDANSETRON HCL INJ 2MG/ML 2ML 2 MG/ML VIAL IV PRN (19:00)
[2024-08-21] MEDS: ALBUTEROL/IPRATROPIUM 3 ML NEB NEB SCH (19:22)
[2024-08-21] MEDS: HYDROCODONE/APAP 5MG-325MG TAB PO ONE (19:23)
[2024-08-21] MEDS: SODIUM CHLORIDE 0.9% 1000ML 1,000 ML IV SCH (23:19)
[2024-08-21] MEDS: METHYLPREDNISOLONE SOD SUCC 125 MG/2ML VIAL IV SCH (23:20)
[2024-08-22] VITALS (14 sets, daily range): BP systolic 126–172; BP diastolic 57–87; PULSE 70–99; RESP 14–28; TEMP 98.1–98.6; O2SAT 98–100
[2024-08-22] MEDS: HYDROCODONE/APAP 10MG-325MG TAB PO PRN (01:34)
[2024-08-22 02:20] LABS: TROPONIN I 0.01 ng/mL (0-0.300)
[2024-08-22 04:58] LABS: HEMATOCRIT 30.9 % (34.2-44.1); HEMOGLOBIN 10.2 g/dL (12.0-16.0); LYMPHOCYTES # (AUTO) 0.6 (1.0-3.2); LYMPHOCYTES % 6.5 % (18.0-39.1); MEAN CORPUSCULAR HEMOGLOBIN 32.6 pg (28-32); MEAN CORPUSCULAR VOLUME 98.7 fL (81-99); MONOCYTES # (AUTO) 0.2 (0.2-0.8); MONOCYTES % 2.1 % (4.4-11.3); NEUTROPHILS # (AUTO) 7.8 (2.1-6.9); NEUTROPHILS % 90.6 % (38.7-80.0); PLATELET COUNT 219 x10e3/uL (140-360); RED BLOOD COUNT 3.13 x10e6/uL (3.6-5.1); RED CELL DISTRIBUTION WIDTH 15.6 % (11.7-14.4); WHITE BLOOD COUNT 8.63 x10e3/uL (4.8-10.8)
[2024-08-22 05:20] LABS: ALBUMIN 3.2 g/dL (3.5-5.0); ALBUMIN/GLOBULIN RATIO 1.7 (0.8-2.0); ANION GAP 11.8 mmol/L (8-16); BILIRUBIN,TOTAL 0.5 mg/dL (0.2-1.2); CALCIUM 7.5 mg/dL (8.4-10.2); CHOL/HDL RATIO 2.6 (3.0-3.6); CREATININE, SERUM 0.5 mg/dL (0.57-1.11); POTASSIUM 3.8 mmol/L (3.5-5.1); TOTAL PROTEIN 5.1 g/dL (6.5-8.1)
[2024-08-22 05:26] LABS: TROPONIN I 0.005 ng/mL (0-0.300)
[2024-08-22] MEDS: CEFEPIME 2 GM in SODIUM CHLORIDE 0.9% 100 ML IV SCH ×2 (05:50→15:34)
[2024-08-22] MEDS: AZITHROMYCIN 250 MG TAB PO STA (10:37)
[2024-08-22] MEDS: METHYLPREDNISOLONE SOD SUCC 40 MG/ML VIAL 1ML IV SCH (11:47)
[2024-08-22] MEDS: Vancomycin IV 1 GM in SODIUM CHLORIDE 0.9% 250ML 250 ML IV SCH (11:48)
[2024-08-22 13:28] LABS: CLARITY,URINE CLEAR (CLEAR); COLOR,URINE YELLOW (YELLOW); GLUCOSE, URINE NEGATIVE (NEGATIVE); LEUKOCYTE ESTERASE ,URINE NEGATIVE (NEGATIVE); NITRITE,URINE NEGATIVE (NEGATIVE); PH,URINE 7 (5 - 7); PROTEIN,URINE DIPSTICK NEGATIVE (NEGATIVE)
[2024-08-22 13:29] LABS: BACTERIA,URINE FEW /HPF; BILIRUBIN,URINE NEGATIVE (NEGATIVE); EPITHELIAL CELLS,URINE FEW /LPF; KETONES,URINE NEGATIVE (NEGATIVE); RBC,URINE 0-5 /HPF (0-5); URINE UROBILINOGEN 0.2 mg/dL (0.2 - 1); WBC,URINE (MAN) 0-5 /HPF (0-5)
[2024-08-22] MEDS: NICOTINE 21 MG/EA PATCH TOP PRN (13:50)
[2024-08-22] MEDS ORDERED: POLYETHYLENE GLYCOL 3350 17 GM PACK PO PRN (14:45)
[2024-08-22] MEDS ORDERED: BISACODYL 10 MG SUPP PR PRN (14:45)
[2024-08-22] MEDS ORDERED: Morphine 4mg INJECTION 4 MG/ML INJ IV PRN (16:00)
[2024-08-22] MEDS: ENOXAPARIN SOD INJ 40 MG/0.4 ML SYR SC SCH (17:23)
[2024-08-22] MEDS: METHOCARBAMOL 500 MG TAB PO PRN (17:23)
[2024-08-22] MEDS: ACETYLCYSTEINE 200 MG/ML 4 ML VIAL INH SCH (19:16)
[2024-08-22] MEDS: BACLOFEN 10 MG TAB PO SCH (20:47)
[2024-08-22] MEDS: ATORVASTATIN 40 MG TAB PO SCH (20:49)
[2024-08-22] MEDS ORDERED: HEPARIN SOD (PORCINE) 5,000 UNIT/ML VIAL SC SCH (21:00)
[2024-08-22] MEDS: Morphine 2mg Syringe 2 MG/ML SYR IV PRN (23:18)
[2024-08-23] VITALS (19 sets, daily range): BP systolic 130–172; BP diastolic 52–92; PULSE 74–95; RESP 16–29; TEMP 97.9–98.2; O2SAT 93–100
[2024-08-23 07:14] LABS: HEMATOCRIT 29.3 % (34.2-44.1); HEMOGLOBIN 9.4 g/dL (12.0-16.0); LYMPHOCYTES % 9.6 % (18.0-39.1); MEAN CORPUSCULAR HEMOGLOBIN 32.5 pg (28-32); MEAN CORPUSCULAR HGB CONC 32.1 g/dL (31-35); MEAN CORPUSCULAR VOLUME 101.4 fL (81-99); MONOCYTES # (AUTO) 0.6 (0.2-0.8); MONOCYTES % 5.5 % (4.4-11.3); NEUTROPHILS # (AUTO) 8.7 (2.1-6.9); NEUTROPHILS % 83.8 % (38.7-80.0); PLATELET COUNT 209 x10e3/uL (140-360); RED BLOOD COUNT 2.89 x10e6/uL (3.6-5.1); RED CELL DISTRIBUTION WIDTH 15.5 % (11.7-14.4); WHITE BLOOD COUNT 10.36 x10e3/uL (4.8-10.8)
[2024-08-23 07:43] LABS: ANION GAP 10.7 mmol/L (8-16); CREATININE, SERUM 0.48 mg/dL (0.57-1.11); POTASSIUM 3.7 mmol/L (3.5-5.1)
[2024-08-23] MEDS: DOCUSATE SODIUM 100 MG CAP PO SCH (08:18)
[2024-08-23] MEDS: AZITHROMYCIN 250 MG TAB PO SCH (08:18)
[2024-08-23] MEDS: SENNOSIDES 8.6 MG TAB PO SCH (08:18)
[2024-08-23] MEDS: LIDOCAINE 4% PATCH TP SCH (10:24)
[2024-08-23] MEDS ORDERED: SODIUM CHLORIDE 0.9% 100 ML ONE (14:01)
[2024-08-24] VITALS (19 sets, daily range): BP systolic 109–184; BP diastolic 51–99; PULSE 73–99; RESP 12–23; TEMP 97.8–98.9; O2SAT 90–100
[2024-08-24 06:27] LABS: BASOPHILS % 0.1 % (0.0-1.0); HEMATOCRIT 31.9 % (34.2-44.1); HEMOGLOBIN 10.7 g/dL (12.0-16.0); LYMPHOCYTES # (AUTO) 1.6 (1.0-3.2); LYMPHOCYTES % 13.9 % (18.0-39.1); MEAN CORPUSCULAR HEMOGLOBIN 32.8 pg (28-32); MEAN CORPUSCULAR HGB CONC 33.5 g/dL (31-35); MEAN CORPUSCULAR VOLUME 97.9 fL (81-99); MONOCYTES # (AUTO) 0.9 (0.2-0.8); MONOCYTES % 7.2 % (4.4-11.3); NEUTROPHILS # (AUTO) 9.2 (2.1-6.9); PLATELET COUNT 213 x10e3/uL (140-360); RED BLOOD COUNT 3.26 x10e6/uL (3.6-5.1); RED CELL DISTRIBUTION WIDTH 15.1 % (11.7-14.4); WHITE BLOOD COUNT 11.76 x10e3/uL (4.8-10.8)
[2024-08-24 08:28] LABS: ANION GAP 10.7 mmol/L (8-16); CALCIUM 8.1 mg/dL (8.4-10.2); CREATININE, SERUM 0.55 mg/dL (0.57-1.11); POTASSIUM 3.7 mmol/L (3.5-5.1)
[2024-08-24] MEDS: TRIAMCINOLONE 0.1% OINTMENT 15 GM TUBE TP SCH (17:58)
[2024-08-24] MEDS: Vancomycin IV 1 GM in SODIUM CHLORIDE 0.9% 250ML 250 ML IV SCH (20:37)
[2024-08-25] VITALS (24 sets, daily range): BP systolic 115–175; BP diastolic 49–125; PULSE 65–112; RESP 13–31; TEMP 97.6–98.2; O2SAT 92–100
[2024-08-25 06:40] LABS: BASOPHILS % 0.1 % (0.0-1.0); EOSINOPHILS % 0.3 % (0.0-6.0); HEMATOCRIT 33.4 % (34.2-44.1); HEMOGLOBIN 10.9 g/dL (12.0-16.0); LYMPHOCYTES # (AUTO) 2.4 (1.0-3.2); LYMPHOCYTES % 18.4 % (18.0-39.1); MEAN CORPUSCULAR HEMOGLOBIN 32.5 pg (28-32); MEAN CORPUSCULAR HGB CONC 32.6 g/dL (31-35); MEAN CORPUSCULAR VOLUME 99.7 fL (81-99); MONOCYTES # (AUTO) 0.8 (0.2-0.8); MONOCYTES % 6.1 % (4.4-11.3); NEUTROPHILS # (AUTO) 9.7 (2.1-6.9); NEUTROPHILS % 74.3 % (38.7-80.0); PLATELET COUNT 189 x10e3/uL (140-360); RED BLOOD COUNT 3.35 x10e6/uL (3.6-5.1); RED CELL DISTRIBUTION WIDTH 14.9 % (11.7-14.4); WHITE BLOOD COUNT 13.01 x10e3/uL (4.8-10.8)
[2024-08-25 07:05] LABS: ANION GAP 10.3 mmol/L (8-16); CALCIUM 7.9 mg/dL (8.4-10.2); CREATININE, SERUM 0.49 mg/dL (0.57-1.11); POTASSIUM 3.3 mmol/L (3.5-5.1)
[2024-08-25] MEDS: LATANOPROST(OPTH) 2.5 ML BTL OP SCH ×2 (09:00→20:21)
[2024-08-25] MEDS: POTASSIUM CHLORIDE 20MEQ/100ML 100 ML IV PRN (11:22)
[2024-08-25] MEDS: PANTOPRAZOLE SOD 40 MG TABEC PO SCH (16:37)
[2024-08-25] MEDS: METHYLPREDNISOLONE SOD SUCC 40 MG/ML VIAL 1ML IV SCH (16:37)
[2024-08-25] MEDS: SODIUM CHLORIDE 0.9% 250ML 250 ML ONE (20:03)
[2024-08-26] VITALS (7 sets, daily range): BP systolic 125–137; BP diastolic 51–124; PULSE 74–89; RESP 17–25; TEMP 98.3–98.5; O2SAT 96–99
[2024-08-26 06:20] LABS: BASOPHILS % 0.1 % (0.0-1.0); EOSINOPHILS # (AUTO) 0.1 (0.0-0.4); EOSINOPHILS % 0.7 % (0.0-6.0); HEMATOCRIT 31.8 % (34.2-44.1); HEMOGLOBIN 10.6 g/dL (12.0-16.0); LYMPHOCYTES # (AUTO) 1.8 (1.0-3.2); LYMPHOCYTES % 14.7 % (18.0-39.1); MEAN CORPUSCULAR HEMOGLOBIN 33.1 pg (28-32); MEAN CORPUSCULAR HGB CONC 33.3 g/dL (31-35); MEAN CORPUSCULAR VOLUME 99.4 fL (81-99); MONOCYTES # (AUTO) 0.7 (0.2-0.8); MONOCYTES % 5.9 % (4.4-11.3); NEUTROPHILS # (AUTO) 9.4 (2.1-6.9); NEUTROPHILS % 77.7 % (38.7-80.0); PLATELET COUNT 161 x10e3/uL (140-360); RED CELL DISTRIBUTION WIDTH 14.9 % (11.7-14.4); WHITE BLOOD COUNT 12.07 x10e3/uL (4.8-10.8)
[2024-08-26 07:31] LABS: ANION GAP 10.7 mmol/L (8-16); CREATININE, SERUM 0.49 mg/dL (0.57-1.11); POTASSIUM 3.7 mmol/L (3.5-5.1)
[2024-08-26] MEDS ORDERED: LEVOFLOXACIN750 MG PO (12:15)
== END 2024-08-26 13:18 | disposition home health service (06) | DRG 871 ==
LOC: ER 17:11 → ERHOLD 18:54 → ICU 21:22
PROVIDERS: ADMIT Internal Medicine; ATTEND Internal Medicine
PROC: 4A033R1 Measurement of Arterial Saturation, Peripheral, Percutaneous Approach (ICD-10-PCS; principal; 2024-08-21)
PROC: 02HV33Z Insertion of Infusion Device into Superior Vena Cava, Percutaneous Approach (ICD-10-PCS; 2024-08-21)
PROC: 3E0333Z Introduction of Anti-inflammatory into Peripheral Vein, Percutaneous Approach (ICD-10-PCS; 2024-08-21)
PROC: 5A0955A Assistance with Respiratory Ventilation, Greater than 96 Consecutive Hours, High Flow/Velocity Cannula (ICD-10-PCS; 2024-08-21)
DX: A41.9 Sepsis, unspecified organism (principal); E43 Unspecified severe protein-calorie malnutrition; J96.21 Acute and chronic respiratory failure with hypoxia; E87.20 Acidosis, unspecified; J44.1 Chronic obstructive pulmonary disease with (acute) exacerbation; R65.20 Severe sepsis without septic shock; Z66 Do not resuscitate; J39.8 Other specified diseases of upper respiratory tract; R91.1 Solitary pulmonary nodule; I10 Essential (primary) hypertension; I25.10 Atherosclerotic heart disease of native coronary artery without angina pectoris; R53.81 Other malaise; E78.5 Hyperlipidemia, unspecified; K21.9 Gastro-esophageal reflux disease without esophagitis; F41.9 Anxiety disorder, unspecified; M47.814 Spondylosis without myelopathy or radiculopathy, thoracic region; Z68.22 Body mass index [BMI] 22.0-22.9, adult; Z79.51 Long term (current) use of inhaled steroids; Z79.891 Long term (current) use of opiate analgesic; Z86.16 Personal history of COVID-19; F17.210 Nicotine dependence, cigarettes, uncomplicated
CPT/HCPCS: 36415; 36569; 36600; 71045; 80048; 80053; 80061; 80202; 81001; 82550; 82805; 83605; 83735; 84484; 85025; 85610; 85730; 87040; 87070; 87086; 87205; 93005; 94640; 94799; 99252; 99285; J0692; J1650; J2185; J2270; J2470; J2919; J3480; J7030; J7050

== ENCOUNTER 2024-12-24 19:40 | Inpatient (IN) | payer MEDICARE, OTHER ==
[~2024-12-24] VITALS: Ht 162.6 cm; Wt 59.0 kg
[~2024-12-24 19:40] MED LIST changes: +LEVOFLOXACIN750 MG PO
[2024-12-24] MEDS ORDERED: SODIUM CHLORIDE FLUSH 10 ML SYR IV PRN (19:45)
[2024-12-24 20:00] VITALS: TEMP 98.8
[2024-12-24 20:23] LABS: BASOPHILS % 0.2 % (0.0-1.0); EOSINOPHILS % 0.0 % (0.0-6.0); LYMPHOCYTES % 13.3 % (18.0-39.1); MONOCYTES % 0.8 % (4.4-11.3); NEUTROPHILS % 85.5 % (38.7-80.0); RED CELL DISTRIBUTION WIDTH 13.2 % (11.7-14.4)
[2024-12-24 20:42] LABS: EST GLOMERULAR FILTRATION RATE 97.0 ML/MIN (>=60)
[2024-12-24] MEDS: ALBUTEROL/IPRATROPIUM 3 ML NEB NEB ONE (21:02)
[2024-12-24 21:05] VITALS: PULSE 95; RESP 16; O2SAT 98
[2024-12-24] MEDS ORDERED: SODIUM CHLORIDE FLUSH 10 ML SYR INJ PRN (21:15)
[2024-12-24] MEDS ORDERED: ONDANSETRON HCL INJ 2MG/ML 2ML 2 MG/ML VIAL IV PRN (21:15)
[2024-12-24] MEDS: HYDROCODONE/APAP 10MG-325MG TAB PO PRN (21:21)
[2024-12-24] MEDS: METHYLPREDNISOLONE SOD SUCC 125 MG/2ML VIAL IV ONE (21:21)
[2024-12-24 23:00] VITALS: BP 167/70; PULSE 77; PULSE 78; RESP 16; RESP 18; TEMP 97.9; O2SAT 100
[2024-12-24 23:52] VITALS: BP 167/70; PULSE 78; RESP 18; TEMP 97.9; O2SAT 100
[2024-12-25] VITALS (10 sets, daily range): BP systolic 130–151; BP diastolic 55–74; PULSE 83–92; RESP 16–20; TEMP 97.7–98.8; O2SAT 97–100
[2024-12-25] MEDS: ALBUTEROL/IPRATROPIUM 3 ML NEB NEB PRN (03:28)
[2024-12-25 05:36] LABS: BASOPHILS % 0.0 % (0.0-1.0); EOSINOPHILS % 0.0 % (0.0-6.0); LYMPHOCYTES % 20.1 % (18.0-39.1); MONOCYTES % 1.6 % (4.4-11.3); NEUTROPHILS % 77.7 % (38.7-80.0); RED CELL DISTRIBUTION WIDTH 13.1 % (11.7-14.4)
[2024-12-25 06:02] LABS: EST GLOMERULAR FILTRATION RATE 102.0 ML/MIN (>=60)
[2024-12-25] MEDS: PANTOPRAZOLE SOD 40 MG TABEC PO SCH (09:37)
[2024-12-25] MEDS: LOSARTAN POTASSIUM 25 MG TAB PO SCH (09:37)
[2024-12-25] MEDS: AMLODIPINE BESYLATE 5 MG TAB PO SCH (09:38)
[2024-12-25] MEDS: LIDOCAINE 4% PATCH TP SCH (09:38)
[2024-12-25] MEDS: BENZONATATE 100 MG CAP PO SCH (09:38)
[2024-12-25] MEDS: ASPIRIN 81 MG ENTERIC COATED PO SCH (11:12)
[2024-12-25] MEDS: CLOPIDOGREL BISULFATE 75 MG TAB PO ONE (11:13)
[2024-12-25] MEDS ORDERED: PREDNISONE 20 MG TAB PO SCH (12:00)
[2024-12-25] MEDS: AZITHROMYCIN 250 MG TAB PO SCH ×2 (12:00→21:12)
[2024-12-25] MEDS: ACETYLCYSTEINE 200 MG/ML 4 ML VIAL INH SCH (13:00)
[2024-12-25] MEDS: SODIUM CHLORIDE 0.9% 250ML 250 ML ONE (13:32)
[2024-12-25] MEDS: WATER STERILE 10 ML VIAL IV PRN (13:33)
[2024-12-25] MEDS: METHYLPREDNISOLONE SOD SUCC 125 MG/2ML VIAL IV SCH (13:33)
[2024-12-25 15:49] LABS: CORONAVIRUS COVID-19 AG NEGATIVE (NEGATIVE)
[2024-12-25] MEDS: ALBUTEROL/IPRATROPIUM 3 ML NEB NEB SCH (20:08)
[2024-12-25] MEDS: ATORVASTATIN 40 MG TAB PO SCH (21:12)
[2024-12-25] MEDS ORDERED: POLYETHYLENE GLYCOL 3350 17 GM PACK PO PRN (23:30)
[2024-12-25] MEDS ORDERED: BISACODYL 10 MG SUPP PR PRN (23:30)
[2024-12-26] VITALS (12 sets, daily range): BP systolic 109–165; BP diastolic 57–92; PULSE 73–95; RESP 17–21; TEMP 97.4–98.2; O2SAT 96–100
[2024-12-26 05:35] LABS: BASOPHILS % 0.1 % (0.0-1.0); EOSINOPHILS % 0.0 % (0.0-6.0); LYMPHOCYTES % 6.2 % (18.0-39.1); MONOCYTES % 2.6 % (4.4-11.3); NEUTROPHILS % 90.8 % (38.7-80.0); RED CELL DISTRIBUTION WIDTH 13.2 % (11.7-14.4)
[2024-12-26 06:00] LABS: EST GLOMERULAR FILTRATION RATE 101.0 ML/MIN (>=60)
[2024-12-26] MEDS: SENNOSIDES 8.6 MG TAB PO SCH (09:00)
[2024-12-26] MEDS: CLOPIDOGREL BISULFATE 75 MG TAB PO SCH (10:59)
[2024-12-26] MEDS: DOCUSATE SODIUM 100 MG CAP PO SCH (10:59)
[2024-12-26] MEDS: LIDOCAINE 4% PATCH TP SCH (11:00)
[2024-12-26] MEDS: ENOXAPARIN SOD INJ 40 MG/0.4 ML SYR SC SCH (18:31)
[2024-12-27] VITALS (8 sets, daily range): BP systolic 117–154; BP diastolic 49–80; PULSE 75–96; RESP 18–20; TEMP 98–98.7; O2SAT 95–100
[2024-12-27 05:31] LABS: BASOPHILS % 0.0 % (0.0-1.0); EOSINOPHILS % 0.0 % (0.0-6.0); LYMPHOCYTES % 12.7 % (18.0-39.1); MONOCYTES % 3.9 % (4.4-11.3); NEUTROPHILS % 82.7 % (38.7-80.0); RED CELL DISTRIBUTION WIDTH 13.0 % (11.7-14.4)
[2024-12-27 05:52] LABS: EST GLOMERULAR FILTRATION RATE 102.0 ML/MIN (>=60)
[2024-12-28] VITALS (8 sets, daily range): BP systolic 120–156; BP diastolic 48–65; PULSE 71–88; RESP 17–22; TEMP 97.9–98.7; O2SAT 95–100
[2024-12-28 06:05] LABS: BASOPHILS % 0.1 % (0.0-1.0); EOSINOPHILS % 0.0 % (0.0-6.0); LYMPHOCYTES % 13.6 % (18.0-39.1); MONOCYTES % 3.2 % (4.4-11.3); NEUTROPHILS % 82.3 % (38.7-80.0); RED CELL DISTRIBUTION WIDTH 13.1 % (11.7-14.4)
[2024-12-28 06:59] LABS: EST GLOMERULAR FILTRATION RATE 100.0 ML/MIN (>=60)
[2024-12-28] MEDS: ISOSORBIDE MONONITRATE 30 MG TAB CR PO SCH (09:24)
[2024-12-28] MEDS ORDERED: PLAVIX75 MG PO (13:14)
[2024-12-28] MEDS ORDERED: Isosorbide Mononitrate PO (13:14)
== END 2024-12-28 20:02 | disposition home or self-care (01) | DRG 190 ==
LOC: ER 19:44 → ERHOLD 21:05 → MED/SURG 22:57 → OBSVTOIN 12-25 16:54
PROVIDERS: ADMIT Internal Medicine; ATTEND Internal Medicine
DX: J44.1 Chronic obstructive pulmonary disease with (acute) exacerbation (principal); E43 Unspecified severe protein-calorie malnutrition; I50.32 Chronic diastolic (congestive) heart failure; J43.9 Emphysema, unspecified; Z99.81 Dependence on supplemental oxygen; G62.9 Polyneuropathy, unspecified; I11.0 Hypertensive heart disease with heart failure; H40.9 Unspecified glaucoma; E78.5 Hyperlipidemia, unspecified; I73.9 Peripheral vascular disease, unspecified; M54.50 Low back pain, unspecified; J98.09 Other diseases of bronchus, not elsewhere classified; J39.8 Other specified diseases of upper respiratory tract; G89.29 Other chronic pain; F41.9 Anxiety disorder, unspecified; K58.0 Irritable bowel syndrome with diarrhea; R32 Unspecified urinary incontinence; R25.1 Tremor, unspecified; M81.0 Age-related osteoporosis without current pathological fracture; R01.1 Cardiac murmur, unspecified; I27.81 Cor pulmonale (chronic); R51.9 Headache, unspecified; R09.81 Nasal congestion; R91.1 Solitary pulmonary nodule; E78.00 Pure hypercholesterolemia, unspecified; Z72.0 Tobacco use; Z11.52 Encounter for screening for COVID-19; Z68.22 Body mass index [BMI] 22.0-22.9, adult; R09.02 Hypoxemia
CPT/HCPCS: 36415; 71045; 71250; 80048; 80053; 82550; 83880; 84484; 85025; 93005; 93306; 93925; 94640; 94760; 94799; 99284; G0378; J0696; J1650; J2470; J2919; J7050

== ENCOUNTER 2025-02-01 21:19 | Inpatient (IN) | payer MEDICARE, OTHER ==
[~2025-02-01] VITALS: Ht 154.9 cm; Wt 59.0 kg
[~2025-02-01 21:19] MED LIST changes: +Isosorbide Mononitrate PO
[2025-02-01 21:51] LABS: BASOPHILS % 0.1 % (0.0-1.0); EOSINOPHILS % 0.0 % (0.0-6.0); LYMPHOCYTES % 17.2 % (18.0-39.1); MONOCYTES % 10.5 % (4.4-11.3); NEUTROPHILS % 70.4 % (38.7-80.0); RED CELL DISTRIBUTION WIDTH 15.3 % (11.7-14.4)
[2025-02-01 21:55] LABS: INR 0.98
[2025-02-01] MEDS: ALBUTEROL SULF 0.083% NEB SOLN 3 ML NEB NEB STA (22:02)
[2025-02-01 22:03] VITALS: PULSE 103; RESP 24; O2SAT 98
[2025-02-01] MEDS: IPRATROPIUM BROMIDE 0.02% 2.5 ML NEB NEB ONE (22:03)
[2025-02-01 22:06] LABS: EST GLOMERULAR FILTRATION RATE 97.0 ML/MIN (>=60)
[2025-02-01 22:13] VITALS: TEMP 98.8
[2025-02-01 22:42] LABS: CORONAVIRUS COVID-19 AG NEGATIVE (NEGATIVE)
[2025-02-01] MEDS: HYDROCODONE/APAP 10MG-325MG TAB PO ONE (22:55)
[2025-02-02] VITALS (14 sets, daily range): BP systolic 130–186; BP diastolic 52–76; PULSE 83–98; RESP 20–24; TEMP 97.9–98.3; O2SAT 95–100
[2025-02-02] MEDS: METHYLPREDNISOLONE SOD SUCC 40 MG/ML VIAL 1ML IV SCH ×2 (00:39→10:37)
[2025-02-02] MEDS: ALBUTEROL/IPRATROPIUM 3 ML NEB NEB SCH ×2 (03:48→11:07)
[2025-02-02] MEDS: NICOTINE 21 MG/EA PATCH TOP SCH (09:07)
[2025-02-02] MEDS: MAGNESIUM SULF 1GRAM/DEXTROSE 100 ML IV ONE (09:07)
[2025-02-02] MEDS ORDERED: IOPAMIDOL 370 MG/ML 100 ML INFUS..BTL INJ ONE (09:53)
[2025-02-02] MEDS: BACLOFEN 10 MG TAB PO SCH (10:39)
[2025-02-02] MEDS: HYDROCODONE/APAP 10MG-325MG TAB PO PRN (10:53)
[2025-02-02] MEDS: BENZONATATE 100 MG CAP PO SCH (14:42)
[2025-02-02 18:14] LABS: BASOPHILS % 0.1 % (0.0-1.0); EOSINOPHILS % 0.0 % (0.0-6.0); LYMPHOCYTES % 6.8 % (18.0-39.1); MONOCYTES % 7.4 % (4.4-11.3); NEUTROPHILS % 83.7 % (38.7-80.0); RED CELL DISTRIBUTION WIDTH 15.0 % (11.7-14.4)
[2025-02-02 18:28] LABS: EST GLOMERULAR FILTRATION RATE 99.0 ML/MIN (>=60)
[2025-02-02 18:50] LABS: % IRON SATURATION 25.0 % (15-50)
[2025-02-02] MEDS: BUDESONIDE 0.5MG/2 ML NEB INH SCH (19:34)
[2025-02-02] MEDS: ATORVASTATIN 40 MG TAB PO SCH (20:40)
[2025-02-03] VITALS (14 sets, daily range): BP systolic 134–157; BP diastolic 60–70; PULSE 80–93; RESP 18–23; TEMP 98.1–98.4; O2SAT 95–100
[2025-02-03] MEDS: CLOPIDOGREL BISULFATE 75 MG TAB PO SCH (09:16)
[2025-02-03] MEDS: LOSARTAN POTASSIUM 25 MG TAB PO SCH (09:17)
[2025-02-03] MEDS: FUROSEMIDE 20 MG TAB PO SCH (09:17)
[2025-02-03] MEDS: ASPIRIN 81 MG ENTERIC COATED PO SCH (09:17)
[2025-02-03] MEDS: Morphine 2mg Syringe 2 MG/ML SYR IV PRN (09:39)
[2025-02-03] MEDS: METHYLPREDNISOLONE SOD SUCC 40 MG/ML VIAL 1ML IV SCH (20:31)
[2025-02-03] MEDS: LIDOCAINE 4% PATCH TP SCH (20:31)
[2025-02-04] VITALS (14 sets, daily range): BP systolic 134–168; BP diastolic 64–79; PULSE 84–107; RESP 17–24; TEMP 97.4–98.8; O2SAT 95–100
[2025-02-04] MEDS: BUDESONIDE/FORMOTEROL 160/4.5MCG INHALER INH SCH ×2 (14:45→17:02)
[2025-02-04] MEDS ORDERED: BUDESONIDE 0.5MG/2 ML NEB INH SCH (14:45)
[2025-02-05] VITALS (14 sets, daily range): BP systolic 129–155; BP diastolic 56–75; PULSE 78–98; RESP 18–22; TEMP 97.5–98.2; O2SAT 94–100
[2025-02-05] MEDS: ACETYLCYSTEINE 200 MG/ML 4 ML VIAL INH SCH (12:30)
[2025-02-05] MEDS: METHYLPREDNISOLONE SOD SUCC 40 MG/ML VIAL 1ML IV SCH (21:27)
[2025-02-06] VITALS (15 sets, daily range): BP systolic 120–151; BP diastolic 51–71; PULSE 76–102; RESP 18–20; TEMP 97.7–98.5; O2SAT 97–100
[2025-02-06 16:56] LABS: BASOPHILS % 0.2 % (0.0-1.0); EOSINOPHILS % 0.0 % (0.0-6.0); LYMPHOCYTES % 4.4 % (18.0-39.1); MONOCYTES % 4.7 % (4.4-11.3); NEUTROPHILS % 89.0 % (38.7-80.0); RED CELL DISTRIBUTION WIDTH 14.6 % (11.7-14.4)
[2025-02-06 17:12] LABS: EST GLOMERULAR FILTRATION RATE 95.0 ML/MIN (>=60)
[2025-02-07] VITALS (12 sets, daily range): BP systolic 116–129; BP diastolic 48–66; PULSE 77–102; RESP 17–23; TEMP 97.5–98.1; O2SAT 95–100
[2025-02-07 06:55] LABS: BASOPHILS % 0.1 % (0.0-1.0); EOSINOPHILS % 0.0 % (0.0-6.0); LYMPHOCYTES % 10.1 % (18.0-39.1); MONOCYTES % 5.7 % (4.4-11.3); NEUTROPHILS % 82.4 % (38.7-80.0); RED CELL DISTRIBUTION WIDTH 14.6 % (11.7-14.4)
[2025-02-07 07:23] LABS: EST GLOMERULAR FILTRATION RATE 102.0 ML/MIN (>=60)
[2025-02-07] MEDS ORDERED: CEFPODOXIME PR200 MG PO (18:46)
== END 2025-02-07 10:28 | disposition home or self-care (01) | DRG 190 ==
LOC: ER 21:26 → ERHOLD 23:25 → MED/SURG3 23:55 → OBSVTOIN 02-02 08:30
PROVIDERS: ADMIT Family Medicine Adult Medicine; ATTEND Family Medicine Adult Medicine
PROC: 05HY33Z Insertion of Infusion Device into Upper Vein, Percutaneous Approach (ICD-10-PCS; principal; 2025-02-02)
DX: J44.1 Chronic obstructive pulmonary disease with (acute) exacerbation (principal); J96.21 Acute and chronic respiratory failure with hypoxia; E44.0 Moderate protein-calorie malnutrition; I50.32 Chronic diastolic (congestive) heart failure; I27.81 Cor pulmonale (chronic); J98.09 Other diseases of bronchus, not elsewhere classified; J43.9 Emphysema, unspecified; J39.8 Other specified diseases of upper respiratory tract; I11.0 Hypertensive heart disease with heart failure; H40.9 Unspecified glaucoma; G62.9 Polyneuropathy, unspecified; D72.829 Elevated white blood cell count, unspecified; D75.838 Other thrombocytosis; D64.9 Anemia, unspecified; J84.10 Pulmonary fibrosis, unspecified; I25.10 Atherosclerotic heart disease of native coronary artery without angina pectoris; G89.29 Other chronic pain; I73.9 Peripheral vascular disease, unspecified; K21.9 Gastro-esophageal reflux disease without esophagitis; I71.43 Infrarenal abdominal aortic aneurysm, without rupture; F41.9 Anxiety disorder, unspecified; M54.9 Dorsalgia, unspecified; M81.0 Age-related osteoporosis without current pathological fracture; E78.00 Pure hypercholesterolemia, unspecified; R01.1 Cardiac murmur, unspecified; R91.8 Other nonspecific abnormal finding of lung field; Z72.0 Tobacco use; Z99.81 Dependence on supplemental oxygen; Z79.52 Long term (current) use of systemic steroids; Z79.82 Long term (current) use of aspirin; Z79.02 Long term (current) use of antithrombotics/antiplatelets; Z79.891 Long term (current) use of opiate analgesic; Z68.24 Body mass index [BMI] 24.0-24.9, adult; Z82.49 Family history of ischemic heart disease and other diseases of the circulatory system
CPT/HCPCS: 36415; 71045; 71260; 74177; 80053; 82550; 82607; 82728; 82746; 83540; 83605; 83735; 83880; 84466; 84484; 85025; 85045; 85610; 85730; 87040; 87070; 87116; 87205; 87206; 93005; 94640; 94760; 94799; 99252; 99285; G0378; J0696; J2270; J2919; J3475; J7050; Q9967